=== PATIENT | male | born 1975 | race Caucasian/White ===

== ENCOUNTER 2016-11-30 08:59 | Emergency (ER) | payer OTHER ==
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
--- NOTE | 2016-11-30 09:58 | XR ---
2 view chest x-ray HISTORY: Left rib pain Frontal view of the chest and 4 views of the left ribs No comparisons There is no pneumothorax or pleural effusion. No evident lung lesion. No displaced rib fracture is se en. IMPRESSION: No acute cardiopulmonary disease. Bone scan could be performed for increased sensitivity as indicated. Degenerative disc disease noted in the spine.
[2016-11-30] MEDS ORDERED: HYDROcodone/APAP 5-325MG 1 EACH TAB PO STA (10:10)
[2016-11-30 10:21] VITALS: BP 140/70; PULSE 78; RESP 16; TEMP 97.8
== END 2016-11-30 10:20 | disposition home or self-care (01) ==
LOC: EC 08:59
DX: S20.212A Contusion of left front wall of thorax, initial encounter (principal); F17.200 Nicotine dependence, unspecified, uncomplicated; Y04.0XXA Assault by unarmed brawl or fight, initial encounter
CPT/HCPCS: 99283

== ENCOUNTER 2017-11-01 12:11 | Emergency (ER) | payer OTHER ==
[2017-11-01] MEDS ORDERED: SODIUM CHLORIDE 0.9% 500 ML IV STA (12:31)
--- NOTE | 2017-11-01 12:31 | ED ---
General Adult HPI - General Stated complaint: FALL FROM ROOF, RIB PAIN LEFT SIDE, LOWER BACK - History of Present Illness Initial comments: Dictation was produced using [employer] dictation software. please excuse any grammatical, word or spelling errors. Chief Complaint: 41-year-old male with a seizure. Medical history presents with left-sided flank pain and back pain after fall from roof. 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 45 minutes prior to arrival patient slipped off the roof falling and landing on his left side. Patient immediately got up he was ambulatory on scene. Patient states he has severe lower back pain and flank pain. Patient was brought here by private vehicle. Patient denies any neuro deficits to the lower extremities. Patient otherwise feels well. Report having several beers this morning. The ROS documented in this emergency department record has been reviewed and confirmed by me. Those systems with pertinent positive or negative responses have been documented in the HPI. All other systems are other negative and/or noncontributory. - Related Data Home Medications Medication Instructions Recorded Confirmed No Known Home Medications 11/01/17 11/01/17 Allergies Allergy/AdvReac Type Severity Reaction Status Date / Time No Known Allergies Allergy Verified 11/01/17 13:57 Review of Systems ROS Statement: Those systems with pertinent positive or pertinent negative responses have been documented in the HPI. ROS Other: All systems not noted in ROS Statement are negative. Past Medical History Past Medical History: No Reported History History of Any Multi-Drug Resistant Organisms: None Reported Past Surgical History: No Surgical Hx Reported Past Psychological History: Anxiety, Depression Smoking Status: Current every day smoker Past Alcohol Use History: None Reported Past Drug Use History: None Reported General Exam - General Exam Comments Initial Comments: PHYSICAL EXAM: General Impression: Alert and oriented x3, not in acute distress HEENT: Normocephalic atraumatic, extra-ocular movements intact, pupils equal and reactive to light bilaterally, mucous membranes moist. Cardiovascular: Heart regular rate and rhythm, S1&S2 audible, no murmurs, rubs or gallops Chest: Lungs clear to auscultation bilaterally, no rhonchi, no wheeze, no rales Abdomen: Tenderness to palpation of the left flank. Anterior abdomen is benign without any tenderness to palpation Musculoskeletal: Pulses present and equal in all extremities, no peripheral edema Motor: Power 5/5 bilaterally, no focal deficits noted Neurological: CN II-XII grossly intact, no focal motor or sensory deficits noted Skin: Intact with no visualized rashes Psych: Normal affect and mood Course Vital Signs 11/01/17 12:15 Temperature 98.2 F Pulse Rate 60 Respiratory 18 Rate Blood Pressure 127/79 O2 Sat by Pulse 100 Oximetry Medical Decision Making - Medical Decision Making ED course: An-year-old male presents with back pain and flank pain after fall from roof. Patient allegedly fell from a roof approximately one and a half stories.Laboratory evaluation obtained. CBC unremarkable. Coag panel unremarkable. Metabolic panel was obtained. There is a lactic acidosis of 2.3. Glucose is 148. Rest of labs are unremarkable. Serum alcohol is 23. Dutton scan was obtained showing no acute processes. Patient c-collar was cleared. He is tolerating by mouth. Pain is controlled. Patient does not have any difficulty breathing. Ambulatory at baseline. Discussed with patient that his symptoms may be worse tomorrow. Repeat lactic acid level was obtained and found to be 1.2. Patient told to expect more pain tomorrow. He is told to take [id number] Motrin. Patient understandable and agreeable to disposition. Patient instructed to return precautions to come back to the emergency department or seek medical attention should he expense any worsening pain or symptoms. - Lab Data Result diagrams: 11/01/17 12:30 11/01/17 12:30 Lab Results 11/01/17 11/01/17 11/01/17 Range/Units 12:30 12:30 12:30 WBC 4.8 (3.8-10.6) k/uL RBC 4.36 (4.30-5.90) m/uL Hgb 13.6 (13.0-17.5) gm/dL Hct 40.0 (39.0-53.0) % MCV 91.9 (80.0-100.0) fL MCH 31.2 (25.0-35.0) pg MCHC 34.0 (31.0-37.0) g/dL RDW 13.4 (11.5-15.5) % Plt Count 208 (150-450) k/uL Neutrophils % 68 % Lymphocytes % 24 % Monocytes % 4 % Eosinophils % 1 % Basophils % 1 % Neutrophils # 3.3 (1.3-7.7) k/uL Lymphocytes # 1.2 (1.0-4.8) k/uL Monocytes # 0.2 (0-1.0) k/uL Eosinophils # 0.1 (0-0.7) k/uL Basophils # 0.0 (0-0.2) k/uL PT (9.0-12.0) sec INR (<1.2) APTT (22.0-30.0) sec Sodium 141 (137-145) mmol/L Potassium 3.7 (3.5-5.1) mmol/L Chloride 105 (98-107) mmol/L Carbon Dioxide 24 (22-30) mmol/L Anion Gap 12 mmol/L BUN 10 (9-20) mg/dL Creatinine 0.63 L (0.66-1.25) mg/dL Est GFR (CKD-EPI)AfAm >90 (>60 ml/min/1.73 sqM) Est GFR (CKD-EPI)NonAf >90 (>60 ml/min/1.73 sqM) Glucose 148 H (74-99) mg/dL Plasma Lactic Acid Suman (0.7-2.0) mmol/L Calcium 9.4 (8.4-10.2) mg/dL Total Bilirubin 0.6 (0.2-1.3) mg/dL AST 62 H (17-59) U/L ALT 79 H (21-72) U/L Alkaline Phosphatase 109 (38-126) U/L Total Creatine Kinase 389 H (55-170) U/L CK-MB (CK-2) 4.2 H (0.0-2.4) ng/mL CK-MB (CK-2) Rel Index 1.1 Troponin I <0.012 (0.000-0.034) ng/mL Total Protein 7.6 (6.3-8.2) g/dL Albumin 4.1 (3.5-5.0) g/dL Amylase 37 (30-110) U/L Lipase 94 (23-300) U/L Serum Alcohol 23 mg/dL Blood Type Blood Type Confirm Blood Type Recheck Antibody Screen Spec Expiration Date 11/01/17 11/01/17 11/01/17 Range/Units 12:30 12:30 12:30 WBC (3.8-10.6) k/uL RBC (4.30-5.90) m/uL Hgb (13.0-17.5) gm/dL Hct (39.0-53.0) % MCV (80.0-100.0) fL MCH (25.0-35.0) pg MCHC (31.0-37.0) g/dL RDW (11.5-15.5) % Plt Count (150-450) k/uL Neutrophils % % Lymphocytes % % Monocytes % % Eosinophils % % Basophils % % Neutrophils # (1.3-7.7) k/uL Lymphocytes # (1.0-4.8) k/uL Monocytes # (0-1.0) k/uL Eosinophils # (0-0.7) k/uL Basophils # (0-0.2) k/uL PT 10.8 (9.0-12.0) sec INR 1.1 (<1.2) APTT 23.6 (22.0-30.0) sec Sodium (137-145) mmol/L Potassium (3.5-5.1) mmol/L Chloride (98-107) mmol/L Carbon Dioxide (22-30) mmol/L Anion Gap mmol/L BUN (9-20) mg/dL Creatinine (0.66-1.25) mg/dL Est GFR (CKD-EPI)AfAm (>60 ml/min/1.73 sqM) Est GFR (CKD-EPI)NonAf (>60 ml/min/1.73 sqM) Glucose (74-99) mg/dL Plasma Lactic Acid Suman 2.3 H* (0.7-2.0) mmol/L Calcium (8.4-10.2) mg/dL Total Bilirubin (0.2-1.3) mg/dL AST (17-59) U/L ALT (21-72) U/L Alkaline Phosphatase (38-126) U/L Total Creatine Kinase (55-170) U/L CK-MB (CK-2) (0.0-2.4) ng/mL CK-MB (CK-2) Rel Index Troponin I (0.000-0.034) ng/mL Total Protein (6.3-8.2) g/dL Albumin (3.5-5.0) g/dL Amylase (30-110) U/L Lipase (23-300) U/L Serum Alcohol mg/dL Blood Type B Positive Blood Type Confirm Blood Type Recheck CABO Indicated Antibody Screen NEGATIVE Spec Expiration Date 11/04/2017 - 232911/01/17 11/01/17 Range/Units 13:06 14:30 WBC (3.8-10.6) k/uL RBC (4.30-5.90) m/uL Hgb (13.0-17.5) gm/dL Hct (39.0-53.0) % MCV (80.0-100.0) fL MCH (25.0-35.0) pg MCHC (31.0-37.0) g/dL RDW (11.5-15.5) % Plt Count (150-450) k/uL Neutrophils % % Lymphocytes % % Monocytes % % Eosinophils % % Basophils % % Neutrophils # (1.3-7.7) k/uL Lymphocytes # (1.0-4.8) k/uL Monocytes # (0-1.0) k/uL Eosinophils # (0-0.7) k/uL Basophils # (0-0.2) k/uL PT (9.0-12.0) sec INR (<1.2) APTT (22.0-30.0) sec Sodium (137-145) mmol/L Potassium (3.5-5.1) mmol/L Chloride (98-107) mmol/L Carbon Dioxide (22-30) mmol/L Anion Gap mmol/L BUN (9-20) mg/dL Creatinine (0.66-1.25) mg/dL Est GFR (CKD-EPI)AfAm (>60 ml/min/1.73 sqM) Est GFR (CKD-EPI)NonAf (>60 ml/min/1.73 sqM) Glucose (74-99) mg/dL Plasma Lactic Acid Suman 1.2 (0.7-2.0) mmol/L Calcium (8.4-10.2) mg/dL Total Bilirubin (0.2-1.3) mg/dL AST (17-59) U/L ALT (21-72) U/L Alkaline Phosphatase (38-126) U/L Total Creatine Kinase (55-170) U/L CK-MB (CK-2) (0.0-2.4) ng/mL CK-MB (CK-2) Rel Index Troponin I (0.000-0.034) ng/mL Total Protein (6.3-8.2) g/dL Albumin (3.5-5.0) g/dL Amylase (30-110) U/L Lipase (23-300) U/L Serum Alcohol mg/dL Blood Type Blood Type Confirm B Positive Blood Type Recheck Antibody Screen Spec Expiration Date Disposition Clinical Impression: Contusion, chest wall Disposition: HOME SELF-CARE Condition: Good Is patient prescribed a controlled substance at d/c from ED?: No Referrals: Mana Queen MD [REFERRING] - 1-2 days Time of Disposition: 15:14
[2017-11-01 12:32] VITALS: BP 127/79; PULSE 60; RESP 18; TEMP 98.2
[2017-11-01 12:47] LABS: Basophils % (A) 1 %; Eosinophils # (A) 0.1 k/uL (0-0.7); Eosinophils % (A) 1 %; HGB 13.6 gm/dL (13.0-17.5); Lymphocytes # (A) 1.2 k/uL (1.0-4.8); Lymphocytes % (A) 24 %; MCH 31.2 pg (25.0-35.0); MCV 91.9 fL (80.0-100.0); Mean Platelet Volume 6.9; Monocytes # (A) 0.2 k/uL (0-1.0); Monocytes % (A) 4 %; Neutrophils # (A) 3.3 k/uL (1.3-7.7); Neutrophils % (A) 68 %; Platelet Count 208 k/uL (150-450); RBC 4.36 m/uL (4.30-5.90); RDW 13.4 % (11.5-15.5); WBC 4.8 k/uL (3.8-10.6)
[2017-11-01 12:55] LABS: INR 1.1 (<1.2); Partial Thromboplastin Time 23.6 sec (22.0-30.0); Prothrombin Time 10.8 sec (9.0-12.0)
[2017-11-01 12:57] LABS: ALT 79 U/L (21-72); AST 62 U/L (17-59); Albumin 4.1 g/dL (3.5-5.0); Alcohol 23 mg/dL; Alkaline Phosphatase 109 U/L (38-126); Amylase 37 U/L (30-110); Anion Gap 12 mmol/L; Blood Urea Nitrogen 10 mg/dL (9-20); Calcium 9.4 mg/dL (8.4-10.2); Carbon Dioxide 24 mmol/L (22-30); Chloride 105 mmol/L (98-107); Glucose 148 mg/dL (74-99); Lipase 94 U/L (23-300); Potassium 3.7 mmol/L (3.5-5.1); Sodium 141 mmol/L (137-145); Total Bilirubin 0.6 mg/dL (0.2-1.3); Total Protein 7.6 g/dL (6.3-8.2)
--- NOTE | 2017-11-01 12:57 | XR ---
EXAMINATION TYPE: XR chest 1V portable DATE OF EXAM: 11/01/2017 COMPARISON: Prior chest x-ray 11/30/2016 HISTORY: Trauma and pain TECHNIQUE: Single frontal view of the chest is obtained. FINDINGS: There is no focal air space opacity, pleural effusion, or pneumothorax seen. The cardiac silhouette size is within normal limits. The osseous structures are intact. IMPRESSION: No acute process.
--- NOTE | 2017-11-01 13:00 | XR ---
AP pelvis HISTORY: Trauma and pain Single frontal view of the pelvis There is no fracture or dislocation. Bone mineralization, joint spaces and alignment are normal. IMPRESSION: No acute abnormality
[2017-11-01 13:09] LABS: Creatine Kinase 389 U/L (55-170)
--- NOTE | 2017-11-01 13:20 | CT ---
EXAMINATION TYPE: CT brain gissell niño DATE OF EXAM: 11/01/2017 COMPARISON: None HISTORY: Fall from roof CT DLP: 1492.[address] Brain: Unenhanced CT of the brain was performed. The ventricles, basal cisterns and sulci overlying the cerebral convexities demonstrate a normal appe arance. There is no evidence for intracranial hemorrhage or sulcal effacement. No mass effects are seen. If symptoms persist consider MRI. Osseous calvarium is intact. IMPRESSION: No acute intracranial process CT Cervical Spine: Unenhanced CT of the cervical spine was performed with bone and soft tissue window settings submitted . Coronal and sagittal reconstruction is obtained. There is normal alignment and prevertebral soft tissues. I do not see evidence for fracture or sublu xation. Mild scattered degenerative disc space narrowing and spondylosis. The lung apices are clear. IMPRESSION: No evidence for acute fracture or subluxation of the cervical spine.
[2017-11-01 13:22] LABS: Creatine Kinase MB 4.2 ng/mL (0.0-2.4); Troponin I <0.012 ng/mL (0.000-0.034)
--- NOTE | 2017-11-01 13:29 | CT ---
EXAMINATION TYPE: CT ChestAbdPelvis w con DATE OF EXAM: 11/01/2017 COMPARISON: None HISTORY: Fall from roof CT DLP: 676.2 mGycm CONTRAST: Contrast enhanced Trauma CT of the Chest, Abdomen and Pelvis is performed with IV Contrast, patient i njected with 100mL mL of Isovue 300. Chest: LUNGS: There is no evidence for pneumothorax. The lungs are clear and free of focal contusion or ate lectasis. No pleural effusion MEDIASTINUM: Thoracic aorta is of normal caliber without CT evidence to suggest traumatic induced ao rtic injury. No mediastinal fluid or blood. No pericardial fluid or cardia abnormality. HILAR STRUCTURES: No evidence for mass. No hilar adenopathy is appreciated. OTHER: No significant abnormality. OSSEOUS: No displaced osseous fractures identified. CT ABDOMEN AND PELVIS FINDINGS: LIVER/GB: No focal laceration, contusion or subcapsular hemorrhage. No calcified gallstones. No s pace occupying hepatic lesion. Biliary tree is of normal caliber. PANCREAS: No evidence for transection. No inflammation. No distinct mass. SPLEEN: No focal laceration, contusion or subcapsular hemorrhage. ADRENALS: No hemorrhage. No nodule. No thickening. KIDNEYS/BLADDER: No focal laceration, contusion or subcapsular hemorrhage. No hydronephrosis. No n ephrolithiasis. No disctinct renal mass. BOWEL: Bowel is intact. No evidence for pneumoperitoneum. GENITAL ORGANS: No gross abnormality. LYMPH NODES: No greater than 1cm abdominal or pelvic lymph nodes areappreciated. AORTA: No traumatic aortic injury visualized. OSSEOUS STRUCTURES: No displaced fracture seen. OTHER: No evidence for hemoperitoneum. IMPRESSION: 1. No evidence for traumatic injury to the chest. 2. No evidence for traumatic injury to the abdomen or pelvis.
[2017-11-01] MEDS ORDERED: IBUPROFEN 800 MG TAB PO STA (14:37)
== END 2017-11-01 16:20 | disposition home or self-care (01) ==
LOC: EC 12:11
DX: S20.212A Contusion of left front wall of thorax, initial encounter (principal); E87.2 Acidosis; F17.200 Nicotine dependence, unspecified, uncomplicated; W13.2XXA Fall from, out of or through roof, initial encounter
CPT/HCPCS: 36415; 86900; 86901; 80053; 82150; 82550; 82553; 83605; 83690; 84484; 85025; 85610; 85730; 86850; 80320; 72170; 71045; 72125; 70450; 71260; 74177; 99284; 96360; Q9967

== ENCOUNTER 2018-06-21 04:46 | Emergency (ER) | payer OTHER ==
--- NOTE | 2018-06-21 05:11 | ED ---
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 Patient reports that shortly after the amputation he tripped and tore the sutures he then developed significant infection in the foot and had have all the sutures opened and the wound was left open for healing by secondary intention. Patient reports he was in a skilled nursing for 3 weeks duration and which time he received IV antibiotics and wound care. Patient reports he left the skilled nursing little over a week ago and due to transportation issues and family issues has been unable to follow-up with his surgeon. Patient reports that today he noticed that there seemed to be more drainage from foot and he was worried that he may not have been doing proper wound care and that he may be developing worsening infection. This prompted him to get a ride to the hospital for further evaluation. She denies any associated fevers, chills nausea vomiting. Patient has not been on antibiotics since his IV antibiotics were discontinued at the longterm facility. - Related Data Home Medications Medication Instructions Recorded Confirmed ALPRAZolam [Xanax] 0.5 mg PO PC-TID PRN 06/21/18 06/21/18 Ibuprofen 800 mg PO PRN 06/21/18 oxyCODONE-APAP 5-325MG [Percocet 1 tab PO Q6HR PRN 06/21/18 06/21/18 5-325 mg] traZODone HCL [TraZODone HCl] 50 mg PO ONCE PRN 06/21/18 06/21/18 Allergies Allergy/AdvReac Type Severity Reaction Status Date / Time No Known Allergies Allergy Verified 06/21/18 04:57 Review of Systems ROS Statement: Those systems with pertinent positive or pertinent negative responses have been documented in the HPI. ROS Other: All systems not noted in ROS Statement are negative. Past Medical History Past Medical History: No Reported History History of Any Multi-Drug Resistant Organisms: None Reported Past Surgical History: No Surgical Hx Reported Additional Past Surgical History / Comment(s): RIGHT FOOT- 5 TOES AMPUTATION FROM FROSTBITE Past Psychological History: Anxiety, Depression Smoking Status: Current every day smoker Past Alcohol Use History: None Reported Past Drug Use History: None Reported General Exam - General Exam Comments Initial Comments: Physical Exam GENERAL: Patient is well-developed and well-nourished. Patient is nontoxic and well-hydrated and is in no distress. HENT: Normocephalic, Atraumatic. EYES: PERRL, EOMI PULMONARY: Unlabored respirations. No audible rales rhonchi or wheezing was noted. CARDIOVASCULAR: There is a regular rate and rhythm without any murmurs gallops or rubs. ABDOMEN: Soft and nontender with normal bowel sounds. SKIN: Surgical incision of right foot, healing granulation tissue with peeling tissue noted, no purulence no malodorous discharge Visible metatarsals : Deferred NEUROLOGIC: Patient is alert and oriented x3. Moving all extremities spontaneously MUSCULOSKELETAL: Normal extremities with adequate strength and full range of motion. No lower extremity swelling or edema. No calf tenderness. PSYCHIATRIC: Normal psychiatric evaluation. Limitations: no limitations Limitations: physical limitation Course Vital Signs 06/21/18 06/21/18 04:50 06:24 Temperature 97.8 F 97.9 F Pulse Rate 99 93 Respiratory 18 16 Rate Blood Pressure 135/85 138/73 O2 Sat by Pulse 96 96 Oximetry Medical Decision Making - Medical Decision Making The patient was seen and evaluated history is obtained from the patient and signed patient uncertain when his surgery was placed that is about 4-5 weeks ago when to skilled nursing for 3 weeks for antibiotics postoperatively, has been unable to follow-up with his surgeon. Now having worsening discharge and has an open surgical wound with granulation tissue no obvious signs of infection though there is exposed bone A sepsis workup was initiated including blood cultures however given that there is no signs of acute infection no antibodies were ordered Given the patient's vascular surgeon Dr. Palumbo is at [facility] I do feel the patient warrants transfer to their facility for reevaluation by his surgeon who he has failed to follow up with. Patient is agreeable to this plan. Pat ient care was discussed with Dr. Martinez at the [facility] who accepts the transfer. Patients CMP resulted with Cr of 2.89 - patient's Cr in Fall 2017 was 0.6 - however the patient's BUN is not significantly elevated so I don't think this is solely related to dehydration. Perhaps due to recent IV antibiotic use. Additional IV fluids were ordered. - Lab Data Result diagrams: 06/21/18 05:24 06/21/18 05:24 Lab Results 06/21/18 06/21/18 06/21/18 Range/Units 05:24 05:24 05:24 WBC 10.2 (3.8-10.6) k/uL RBC 3.88 L (4.30-5.90) m/uL Hgb 11.7 L (13.0-17.5) gm/dL Hct 34.8 L (39.0-53.0) % MCV 89.7 (80.0-100.0) fL MCH 30.2 (25.0-35.0) pg MCHC 33.6 (31.0-37.0) g/dL RDW 13.2 (11.5-15.5) % Plt Count 237 (150-450) k/uL Neutrophils % 80 % Lymphocytes % 10 % Monocytes % 8 % Eosinophils % 1 % Basophils % 0 % Neutrophils # 8.1 H (1.3-7.7) k/uL Lymphocytes # 1.0 (1.0-4.8) k/uL Monocytes # 0.8 (0-1.0) k/uL Eosinophils # 0.1 (0-0.7) k/uL Basophils # 0.0 (0-0.2) k/uL PT (9.0-12.0) sec INR (<1.2) APTT (22.0-30.0) sec Sodium 138 (137-145) mmol/L Potassium 4.5 (3.5-5.1) mmol/L Chloride 100 (98-107) mmol/L Carbon Dioxide 20 L (22-30) mmol/L Anion Gap 18 mmol/L BUN 29 H (9-20) mg/dL Creatinine 2.89 H (0.66-1.25) mg/dL Est GFR (CKD-EPI)AfAm 30 (>60 ml/min/1.73 sqM) Est GFR (CKD-EPI)NonAf 26 (>60 ml/min/1.73 sqM) Glucose 97 (74-99) mg/dL Plasma Lactic Acid Suman 1.5 (0.7-2.0) mmol/L Calcium 10.0 (8.4-10.2) mg/dL Total Bilirubin 0.6 (0.2-1.3) mg/dL AST 60 H (17-59) U/L ALT 36 (21-72) U/L Alkaline Phosphatase 89 (38-126) U/L C-Reactive Protein 49.9 H (<10.0) mg/L Total Protein 8.2 (6.3-8.2) g/dL Albumin 4.6 (3.5-5.0) g/dL 06/21/18 Range/Units 05:24 WBC (3.8-10.6) k/uL RBC (4.30-5.90) m/uL Hgb (13.0-17.5) gm/dL Hct (39.0-53.0) % MCV (80.0-100.0) fL MCH (25.0-35.0) pg MCHC (31.0-37.0) g/dL RDW (11.5-15.5) % Plt Count (150-450) k/uL Neutrophils % % Lymphocytes % % Monocytes % % Eosinophils % % Basophils % % Neutrophils # (1.3-7.7) k/uL Lymphocytes # (1.0-4.8) k/uL Monocytes # (0-1.0) k/uL Eosinophils # (0-0.7) k/uL Basophils # (0-0.2) k/uL PT 11.6 (9.0-12.0) sec INR 1.1 (<1.2) APTT 23.9 (22.0-30.0) sec Sodium (137-145) mmol/L Potassium (3.5-5.1) mmol/L Chloride (98-107) mmol/L Carbon Dioxide (22-30) mmol/L Anion Gap mmol/L BUN (9-20) mg/dL Creatinine (0.66-1.25) mg/dL Est GFR (CKD-EPI)AfAm (>60 ml/min/1.73 sqM) Est GFR (CKD-EPI)NonAf (>60 ml/min/1.73 sqM) Glucose (74-99) mg/dL Plasma Lactic Acid Suman (0.7-2.0) mmol/L Calcium (8.4-10.2) mg/dL Total Bilirubin (0.2-1.3) mg/dL AST (17-59) U/L ALT (21-72) U/L Alkaline Phosphatase (38-126) U/L C-Reactive Protein (<10.0) mg/L Total Protein (6.3-8.2) g/dL Albumin (3.5-5.0) g/dL Disposition Clinical Impression: Postoperative dehiscence of skin wound, FRANCISCA (acute kidney injury), Elevated C- reactive protein (CRP) Disposition: OTHER INSTITUTION NOT DEFINED Condition: Stable Is patient prescribed a controlled substance at d/c from ED?: No Referrals: Roel Akhtar DO [Primary Care Provider] - 1-2 days - Out of Hospital Transfer - Req. Specs Out of Hospital Transfer - Requested Specifics: Other Emergency Center ([facility])
[2018-06-21] MEDS: SODIUM CHLORIDE 0.9% 500 ML 500 ML IV SCH ×2 (05:30→05:34)
[2018-06-21 05:43] LABS: Basophils % (A) 0 %; Eosinophils # (A) 0.1 k/uL (0-0.7); Eosinophils % (A) 1 %; HCT 34.8 % (39.0-53.0); HGB 11.7 gm/dL (13.0-17.5); Lymphocytes % (A) 10 %; MCH 30.2 pg (25.0-35.0); MCHC 33.6 g/dL (31.0-37.0); MCV 89.7 fL (80.0-100.0); Mean Platelet Volume 7.3; Monocytes # (A) 0.8 k/uL (0-1.0); Monocytes % (A) 8 %; Neutrophils # (A) 8.1 k/uL (1.3-7.7); Neutrophils % (A) 80 %; Platelet Count 237 k/uL (150-450); RBC 3.88 m/uL (4.30-5.90); RDW 13.2 % (11.5-15.5); WBC 10.2 k/uL (3.8-10.6)
[2018-06-21 06:25] VITALS: BP 138/73; PULSE 93; RESP 16; TEMP 97.9
[2018-06-21 06:26] LABS: Albumin 4.6 g/dL (3.5-5.0); C Reactive Protein 49.9 mg/L (<10.0); Potassium 4.5 mmol/L (3.5-5.1); Total Bilirubin 0.6 mg/dL (0.2-1.3); Total Protein 8.2 g/dL (6.3-8.2)
[2018-06-21 06:31] LABS: INR 1.1 (<1.2); Partial Thromboplastin Time 23.9 sec (22.0-30.0); Prothrombin Time 11.6 sec (9.0-12.0)
[2018-06-21] MEDS ORDERED: SODIUM CHLORIDE 0.9% 1,000 ML IV ONE (06:31)
--- NOTE | 2018-06-21 06:36 | XR ---
EXAM: XR Right Foot Complete, 3 or More Views CLINICAL HISTORY: ITS.REASON XR Reason: Pain, infection eval for osteo TECHNIQUE: Frontal, lateral and oblique views of the right foot. COMPARISON: No relevant prior studies available. FINDINGS: Bones/joints: Status post forefoot amputation at the level of the metatarsals. No definite acute fracture or osseous destruction. Soft tissues: Lucencies at the dorsal aspect of the foot, soft tissue gas is not excluded. IMPRESSION: 1. Postsurgical changes without evidence of acute fracture or osseous destruction. CT/MRI may be considered if there is persistent concern for osteomyelitis. 2. Lucencies at the dorsal aspect of the foot, soft tissue gas is not excluded.
[2018-06-21] MEDS ORDERED: SODIUM CHLORIDE 0.9% 1,000 ML IV SCH (06:45)
== END 2018-06-21 07:00 | disposition other institution (70) ==
LOC: EC 04:46
DX: T81.31XA Disruption of external operation (surgical) wound, not elsewhere classified, initial encounter (principal); N17.9 Acute kidney failure, unspecified; R79.82 Elevated C-reactive protein (CRP); F17.200 Nicotine dependence, unspecified, uncomplicated; Z89.411 Acquired absence of right great toe; Z89.421 Acquired absence of other right toe(s); W01.0XXA Fall on same level from slipping, tripping and stumbling without subsequent striking against object, initial encounter
CPT/HCPCS: 36415; 80053; 83605; 85025; 85610; 85730; 86140; 87040; 96360; 99285

== ENCOUNTER 2018-08-03 13:02 | Emergency (ER) | payer OTHER ==
[2018-08-03 13:14] VITALS: RESP 18
--- NOTE | 2018-08-03 13:48 | ED ---
General Adult HPI - General Chief complaint: Recheck/Abnormal Lab/Rx Stated complaint: Foot infection Time Seen by Provider: 08/03/18 13:24 Source: patient, RN notes reviewed Mode of arrival: ambulatory Limitations: no limitations - History of Present Illness Initial comments: 42-year-old male presents emergency Department chief complaint of possible inf ection to right foot. Patient had prior amputation of all toes on the right foot in May. Patient states that he had an associated infection in which she was opened up again and had wound VAC placed approximately 5 weeks ago. Patient states that he has increased drainage. Patient states he missed his follow-up appointment. Patient also states that he is out of his pain medication. Patient reports no fevers or chills. Patient states pain is unbearable. Patient does not have another scheduled appointment for follow-up. Patient's surgeon is [place] [facility]. - Related Data Home Medications Medication Instructions Recorded Confirmed ALPRAZolam [Xanax] 0.5 mg PO PC-TID PRN 06/21/18 06/21/18 Ibuprofen 800 mg PO PRN 06/21/18 oxyCODONE-APAP 5-325MG [Percocet 1 tab PO Q6HR PRN 06/21/18 06/21/18 5-325 mg] traZODone HCL [TraZODone HCl] 50 mg PO ONCE PRN 06/21/18 06/21/18 Previous Rx's Medication Instructions Recorded Cephalexin [Keflex] 500 mg PO Q6HR #40 cap 08/03/18 Sulfamethox-Tmp 800-160Mg [Bactrim 1 each PO Q12HR #20 tab 08/03/18 Ds] Allergies Allergy/AdvReac Type Severity Reaction Status Date / Time No Known Allergies Allergy Verified 08/03/18 13:14 Review of Systems ROS Statement: Those systems with pertinent positive or pertinent negative responses have been documented in the HPI. ROS Other: All systems not noted in ROS Statement are negative. Past Medical History Past Medical History: No Reported History History of Any Multi-Drug Resistant Organisms: None Reported Past Surgical History: No Surgical Hx Reported Additional Past Surgical History / Comment(s): RIGHT FOOT- 5 TOES AMPUTATION FROM FROSTBITE Past Psychological History: Anxiety, Depression Smoking Status: Current every day smoker Past Alcohol Use History: None Reported Past Drug Use History: None Reported General Exam Limitations: no limitations General appearance: alert, in no apparent distress Head exam: Present: atraumatic, normocephalic, normal inspection Eye exam: Present: normal appearance, PERRL, EOMI. Absent: scleral icterus, conjunctival injection, periorbital swelling Respiratory exam: Present: normal lung sounds bilaterally. Absent: respiratory distress, wheezes, rales, rhonchi, stridor Cardiovascular Exam: Present: normal rhythm, tachycardia, normal heart sounds. Absent: systolic murmur, diastolic murmur, rubs, gallop, clicks Extremities exam: Present: other (Right foot there is amputation of all digits, there is a wound that has mild dehiscence, small amount of purulent drainage, there is no erythema, pulses are equal bilaterally) Skin exam: Present: warm, dry, normal color Course Vital Signs 08/03/18 13:11 Temperature 98.3 F Pulse Rate 107 H Respiratory 18 Rate Blood Pressure 134/74 O2 Sat by Pulse 97 Oximetry Medical Decision Making - Medical Decision Making 42-year-old male present emergency department for wound dehiscence of his right foot. This is a chronic ongoing wound. Patient will be placed on prophylactic antibiotics at this time there is no evidence of osteomyelitis patient's lab work essentially unremarkable. Patient advised to follow-up with PCP, surgeon. - Lab Data Result diagrams: 08/03/18 13:57 08/03/18 13:57 Lab Results 08/03/18 08/03/18 08/03/18 Range/Units 13:57 13:57 13:57 WBC 3.1 L (3.8-10.6) k/uL RBC 4.67 (4.30-5.90) m/uL Hgb 12.8 L (13.0-17.5) gm/dL Hct 39.2 (39.0-53.0) % MCV 83.8 D (80.0-100.0) fL MCH 27.4 (25.0-35.0) pg MCHC 32.7 (31.0-37.0) g/dL RDW 13.0 (11.5-15.5) % Plt Count 296 (150-450) k/uL Neutrophils % 44 % Lymphocytes % 43 % Monocytes % 7 % Eosinophils % 2 % Basophils % 1 % Neutrophils # 1.4 (1.3-7.7) k/uL Lymphocytes # 1.3 (1.0-4.8) k/uL Monocytes # 0.2 (0-1.0) k/uL Eosinophils # 0.1 (0-0.7) k/uL Basophils # 0.0 (0-0.2) k/uL Sodium 138 (137-145) mmol/L Potassium 3.6 (3.5-5.1) mmol/L Chloride 105 (98-107) mmol/L Carbon Dioxide 19 L (22-30) mmol/L Anion Gap 14 mmol/L BUN 21 H (9-20) mg/dL Creatinine 1.38 H (0.66-1.25) mg/dL Est GFR (CKD-EPI)AfAm 73 (>60 ml/min/1.73 sqM) Est GFR (CKD-EPI)NonAf 63 (>60 ml/min/1.73 sqM) Glucose 164 H (74-99) mg/dL Plasma Lactic Acid Suman 1.0 (0.7-2.0) mmol/L Calcium 9.7 (8.4-10.2) mg/dL Total Bilirubin 0.5 (0.2-1.3) mg/dL AST 32 (17-59) U/L ALT 23 (21-72) U/L Alkaline Phosphatase 96 (38-126) U/L Total Protein 8.2 (6.3-8.2) g/dL Albumin 4.5 (3.5-5.0) g/dL Disposition Clinical Impression: Wound dehiscence Disposition: HOME SELF-CARE Condition: Stable Instructions (If sedation given, give patient instructions): Wound Dehiscence (ED) Additional Instructions: Please return to the Emergency Department if symptoms worsen or any other concerns. Prescriptions: Sulfamethox-Tmp 800-160Mg [Bactrim Ds] 1 each PO Q12HR #20 tab Cephalexin [Keflex] 500 mg PO Q6HR #40 cap Is patient prescribed a controlled substance at d/c from ED?: No Referrals: oRel Akhtar DO [Primary Care Provider] - 1-2 days Time of Disposition: 14:54
[2018-08-03 14:10] LABS: Basophils % (A) 1 %; Eosinophils # (A) 0.1 k/uL (0-0.7); Eosinophils % (A) 2 %; HCT 39.2 % (39.0-53.0); HGB 12.8 gm/dL (13.0-17.5); Lymphocytes # (A) 1.3 k/uL (1.0-4.8); Lymphocytes % (A) 43 %; MCH 27.4 pg (25.0-35.0); MCHC 32.7 g/dL (31.0-37.0); Mean Platelet Volume 6.7; Monocytes # (A) 0.2 k/uL (0-1.0); Monocytes % (A) 7 %; Neutrophils # (A) 1.4 k/uL (1.3-7.7); Neutrophils % (A) 44 %; Platelet Count 296 k/uL (150-450); RBC 4.67 m/uL (4.30-5.90); WBC 3.1 k/uL (3.8-10.6)
[2018-08-03 14:16] LABS: MCV 83.8 fL (80.0-100.0)
[2018-08-03 14:25] LABS: Albumin 4.5 g/dL (3.5-5.0); Calcium 9.7 mg/dL (8.4-10.2); Potassium 3.6 mmol/L (3.5-5.1); Total Bilirubin 0.5 mg/dL (0.2-1.3); Total Protein 8.2 g/dL (6.3-8.2)
[2018-08-03] MEDS ORDERED: oxyCODONE-APAP 5-325MG 1 EACH TAB PO STA (14:31)
--- NOTE | 2018-08-03 14:35 | XR ---
EXAMINATION TYPE: XR foot complete RT DATE OF EXAM: 08/03/2018 COMPARISON: 06/21/2018 HISTORY: 42-year-old male pain, possible infection at amputation site TECHNIQUE: 3 views FINDINGS: Forefoot amputation is demonstrated. There is progressive callus/periostitis in the region of the ost eotomies along the first through fourth metatarsals. Slight bony irregularity along the third metatar vashti osteotomy margin without ophelia osteolysis. Soft tissue swelling. IMPRESSION: 1. Forefoot amputation with progression in callus formation along the osteotomies. The periostitis ma y be reactive to overlying soft tissue infection. 2. There is very minimal bony irregularity at the third metatarsal osteotomy without ophelia osteolysis at this time. Close follow-up recommended.
[2018-08-03 15:24] VITALS: BP 122/78; PULSE 98; TEMP 98.4
== END 2018-08-03 15:26 | disposition home or self-care (01) ==
LOC: EC 13:02
DX: T81.30XA Disruption of wound, unspecified, initial encounter (principal); F17.200 Nicotine dependence, unspecified, uncomplicated
CPT/HCPCS: 36415; 80053; 83605; 85025; 87040; 99283

== ENCOUNTER 2018-08-05 12:38 | Emergency (ER) | payer OTHER ==
--- NOTE | 2018-08-05 13:49 | ED ---
Wound/Laceration HPI - General Source: patient, RN notes reviewed Mode of arrival: ambulatory <Michael Hargrove - Last Filed: 08/05/18 14:15> <Higinio Cuevas - Last Filed: 08/05/18 16:10> - General Chief Complaint: Wound/Laceration Stated Complaint: Foot infection/swelling Time Seen by Provider: 08/05/18 13:03 - History of Present Illness Initial Comments: 42-year-old male presents emergency Department with initial triage complaint of foot infection. Patient was recently seen in emergency department and was given antibiotics and he has not followed up. Patient states he is not concerned about this foot he states that he is depressed, states that he cannot deal with the pain and not been able to ambulate and work as a used to. Patient is not suicidal though he just feels that life is not going the direction that he wants. Patient does not have any current pain meds he was on Percocet and states he has not had any recent prescriptions. Patient is requesting narcotic pain meds. Patient denies any other complaints denies fevers or chills no drainage from the foot. (Michael Hargrove) - Related Data Home Medications Medication Instructions Recorded Confirmed ALPRAZolam [Xanax] 0.5 mg PO PC-TID PRN 06/21/18 08/05/18 oxyCODONE-APAP 5-325MG [Percocet 1 tab PO Q6HR PRN 06/21/18 08/05/18 5-325 mg] traZODone HCL [TraZODone HCl] 50 mg PO ONCE PRN 06/21/18 08/05/18 Cefuroxime Axetil [Ceftin] 500 mg PO Q12HR 08/05/18 08/05/18 Gabapentin [Neurontin] 300 mg PO Q6HR 08/05/18 08/05/18 Previous Rx's Medication Instructions Recorded Sulfamethox-Tmp 800-160Mg [Bactrim 1 each PO Q12HR #20 tab 08/03/18 Ds] Allergies Allergy/AdvReac Type Severity Reaction Status Date / Time No Known Allergies Allergy Verified 08/05/18 14:27 Review of Systems ROS Other: All systems not noted in ROS Statement are negative. <Michael Hargrove - Last Filed: 08/05/18 14:15> ROS Other: All systems not noted in ROS Statement are negative. <MasonHiginio - Last Filed: 08/05/18 16:10> ROS Statement: Those systems with pertinent positive or pertinent negative responses have been documented in the HPI. Past Medical History Past Medical History: No Reported History History of Any Multi-Drug Resistant Organisms: None Reported Past Surgical History: No Surgical Hx Reported Additional Past Surgical History / Comment(s): RIGHT FOOT- 5 TOES AMPUTATION FROM FROSTBITE Past Psychological History: Anxiety, Depression Smoking Status: Current every day smoker Past Alcohol Use History: None Reported Past Drug Use History: None Reported <Michael Hargrove Hugh - Last Filed: 08/05/18 14:15> General Exam General appearance: alert, in no apparent distress Head exam: Present: atraumatic, normocephalic, normal inspection Eye exam: Present: normal appearance, PERRL, EOMI. Absent: scleral icterus, conjunctival injection, periorbital swelling ENT exam: Present: normal exam, mucous membranes moist Neck exam: Present: normal inspection, full ROM. Absent: tenderness, meningismus, lymphadenopathy Respiratory exam: Present: normal lung sounds bilaterally. Absent: respiratory distress, wheezes, rales, rhonchi, stridor Cardiovascular Exam: Present: regular rate, normal rhythm, normal heart sounds. Absent: systolic murmur, diastolic murmur, rubs, gallop, clicks GI/Abdominal exam: Present: soft, normal bowel sounds. Absent: distended, tenderness, guarding, rebound, rigid Extremities exam: Present: other (Right foot there is amputation of digits 1 through 5, there is a healing wound with no erythema no purulent drainage pulses are equal bilaterally) Neurological exam: Present: alert, oriented X3, CN II-XII intact, reflexes normal. Absent: motor sensory deficit Psychiatric exam: Present: depressed <Michael Hargrove Hugh - Last Filed: 08/05/18 14:15> Course <MasonHiginio - Last Filed: 08/05/18 16:10> Vital Signs 08/05/18 08/05/18 08/05/18 12:51 13:54 15:52 Temperature 98.5 F Pulse Rate 95 Respiratory 18 18 18 Rate Blood Pressure 131/81 O2 Sat by Pulse 100 Oximetry - Reevaluation(s) Reevaluation #1: 08/05/18 16:10 PA supervision: I personally do a [id number] evaluation the patient he does present with complaints of feeling very depressed and having suicidal ideation though no particular plan. He was evaluated by psychiatric service and his to be admitted for inpatient treatment. I do agree with the assessment and plan I did fill out a clinical certification. (Higinio Cuevas) Medical Decision Making <Michael Hargrove - Last Filed: 08/05/18 14:15> - Lab Data Result diagrams: 08/05/18 14:40 08/05/18 14:40 <Higinio Cuevas - Last Filed: 08/05/18 16:10> - Medical Decision Making 42-year-old male present emergency Department for evaluation for depression. Patient was evaluated by EPS case discussed with psychiatrist recommends patient to be admitted. (Michael Hargrove) - Lab Data Lab Results 08/05/18 08/05/18 08/05/18 Range/Units 14:20 14:40 14:40 WBC 3.7 L (3.8-10.6) k/uL RBC 4.90 (4.30-5.90) m/uL Hgb 13.0 (13.0-17.5) gm/dL Hct 40.1 (39.0-53.0) % MCV 81.7 (80.0-100.0) fL MCH 26.4 (25.0-35.0) pg MCHC 32.3 (31.0-37.0) g/dL RDW 14.4 (11.5-15.5) % Plt Count 232 (150-450) k/uL Neutrophils % 47 % Lymphocytes % 40 % Monocytes % 7 % Eosinophils % 2 % Basophils % 1 % Neutrophils # 1.8 (1.3-7.7) k/uL Lymphocytes # 1.5 (1.0-4.8) k/uL Monocytes # 0.3 (0-1.0) k/uL Eosinophils # 0.1 (0-0.7) k/uL Basophils # 0.0 (0-0.2) k/uL Poikilocytosis Slight Sodium 139 (137-145) mmol/L Potassium 3.6 (3.5-5.1) mmol/L Chloride 107 (98-107) mmol/L Carbon Dioxide 22 (22-30) mmol/L Anion Gap 10 mmol/L BUN 10 (9-20) mg/dL Creatinine 0.77 (0.66-1.25) mg/dL Est GFR (CKD-EPI)AfAm >90 (>60 ml/min/1.73 sqM) Est GFR (CKD-EPI)NonAf >90 (>60 ml/min/1.73 sqM) Glucose 104 H (74-99) mg/dL Calcium 9.8 (8.4-10.2) mg/dL Total Bilirubin 0.5 (0.2-1.3) mg/dL AST 25 (17-59) U/L ALT 22 (21-72) U/L Alkaline Phosphatase 89 (38-126) U/L Total Protein 8.3 H (6.3-8.2) g/dL Albumin 4.5 (3.5-5.0) g/dL Urine Color Yellow Urine Appearance Clear (Clear) Urine pH 6.5 (5.0-8.0) Ur Specific [place] 1.023 (1.001-1.035) Urine Protein 1+ H (Negative) Urine Glucose (UA) Negative (Negative) Urine Ketones 1+ H (Negative) Urine Blood Negative (Negative) Urine Nitrite Negative (Negative) Urine Bilirubin Negative (Negative) Urine Urobilinogen <2.0 (<2.0) mg/dL Ur Leukocyte Esterase Negative (Negative) Urine RBC 1 (0-5) /hpf Urine WBC 3 (0-5) /hpf Ur Squamous Epith Cells <1 (0-4) /hpf Urine Mucus Many H (None) /hpf Urine Opiates Screen Not Detected (NotDetected) Ur Oxycodone Screen Not Detected (NotDetected) Urine Methadone Screen Not Detected (NotDetected) Ur Propoxyphene Screen Not Detected (NotDetected) Ur Barbiturates Screen Not Detected (NotDetected) U Tricyclic Antidepress Not Detected (NotDetected) Ur Phencyclidine Scrn Not Detected (NotDetected) Ur Amphetamines Screen Not Detected (NotDetected) U Methamphetamines Scrn Detected H (NotDetected) U Benzodiazepines Scrn Detected H (NotDetected) Urine Cocaine Screen Not Detected (NotDetected) U Marijuana (THC) Screen Not Detected (NotDetected) Disposition <Michael Hargrove M - Last Filed: 08/05/18 14:15> <Higinio Cuevas - Last Filed: 08/05/18 16:10> Clinical Impression: Depression, Suicidal ideation Disposition: TRANSFER TO PSYCH HOSP/UNIT Condition: Stable Referrals: Roel Akhtar DO [Primary Care Provider] - 1-2 days
[2018-08-05] MEDS ORDERED: HYDROcodone/APAP 5-325MG 1 EACH TAB PO STA (14:14)
[2018-08-05 14:32] LABS: Appearance,Urine Clear (Clear); Bilirubin,Urine Negative (Negative); Blood,Urine Negative (Negative); Color,Urine Yellow; Glucose,Urine (UA) Negative (Negative); Ketones,Urine 1+ (Negative); Leukocyte Esterase,Urine Negative (Negative); Mucus,Urine Many /hpf; Nitrite,Urine Negative (Negative); PH, Urine 6.5 (5.0-8.0); Protein,Urine 1+ (Negative); RBC,Urine 1 /hpf (0-5); Specific Gravity,Urine 1.023 (1.001-1.035); Squamous Epithelial Cell,Urine <1 /hpf (0-4); Urobilinogen,Urine <2.0 mg/dL (<2.0); WBC,Urine 3 /hpf (0-5)
[2018-08-05 14:43] LABS: Amphetamine Screen,Urine Not Detected (NotDetected); Barbiturate Screen,Urine Not Detected (NotDetected); Benzodiazepines Screen,Urine Detected (NotDetected); Cocaine Screen,Urine Not Detected (NotDetected); Methadone Screen, Urine Not Detected (NotDetected); Opiate Screen,Urine Not Detected (NotDetected); Oxycodone Screen, Urine Not Detected (NotDetected); Phencyclidine Screen,Urine Not Detected (NotDetected); Tricyclic Antidepressant,Urine Not Detected (NotDetected); Urn Cannabinoid Scrn Not Detected (NotDetected)
[2018-08-05 14:51] LABS: Basophils % (A) 1 %; Eosinophils # (A) 0.1 k/uL (0-0.7); Eosinophils % (A) 2 %; HCT 40.1 % (39.0-53.0); Lymphocytes # (A) 1.5 k/uL (1.0-4.8); Lymphocytes % (A) 40 %; MCH 26.4 pg (25.0-35.0); MCHC 32.3 g/dL (31.0-37.0); MCV 81.7 fL (80.0-100.0); Mean Platelet Volume 7.4; Monocytes # (A) 0.3 k/uL (0-1.0); Monocytes % (A) 7 %; Neutrophils # (A) 1.8 k/uL (1.3-7.7); Neutrophils % (A) 47 %; Platelet Count 232 k/uL (150-450); Poikilocytosis Slight; RDW 14.4 % (11.5-15.5); WBC 3.7 k/uL (3.8-10.6)
[2018-08-05 15:00] LABS: ALT 22 U/L (21-72); AST 25 U/L (17-59); African American GFR (CKD) >90 (>60 ml/min/1.73 sqM); Albumin 4.5 g/dL (3.5-5.0); Alkaline Phosphatase 89 U/L (38-126); Anion Gap 10 mmol/L; Blood Urea Nitrogen 10 mg/dL (9-20); Calcium 9.8 mg/dL (8.4-10.2); Carbon Dioxide 22 mmol/L (22-30); Chloride 107 mmol/L (98-107); Glucose 104 mg/dL (74-99); Potassium 3.6 mmol/L (3.5-5.1); Sodium 139 mmol/L (137-145); Total Bilirubin 0.5 mg/dL (0.2-1.3); Total Protein 8.3 g/dL (6.3-8.2)
[2018-08-05] MEDS ORDERED: ALPRAZolam 0.5 MG TAB PO STA (16:40)
[2018-08-05] MEDS: oxyCODONE-APAP 5-325MG 1 EACH TAB PO PRN (22:43)
[2018-08-06] MEDS: GABAPENTIN 300 MG CAP PO SCH ×3 (04:58→14:18)
[2018-08-06] MEDS: oxyCODONE-APAP 5-325MG 1 EACH TAB PO PRN ×3 (05:05→18:11)
[2018-08-06] MEDS: ALPRAZolam 0.5 MG TAB PO PRN ×2 (08:01→14:18)
[2018-08-06 18:15] VITALS: BP 109/69; PULSE 71; RESP 17; TEMP 98.3
== END 2018-08-06 18:15 ==
LOC: EC 12:38
DX: F32.9 Major depressive disorder, single episode, unspecified (principal); R45.851 Suicidal ideations; T81.49XA Infection following a procedure, other surgical site, initial encounter; F17.200 Nicotine dependence, unspecified, uncomplicated; Z79.899 Other long term (current) drug therapy; Z89.421 Acquired absence of other right toe(s)
CPT/HCPCS: 36415; 80053; 80306; 81001; 82075; 85025; 99284

== ENCOUNTER 2018-11-19 18:57 | Observation (INO) | payer OTHER ==
--- NOTE | 2018-11-19 22:41 | ED ---
General Adult HPI - General Chief complaint: Recheck/Abnormal Lab/Rx Stated complaint: needs picc line replaced Time Seen by Provider: 11/19/18 22:03 Source: patient, RN notes reviewed, old records reviewed Mode of arrival: ambulatory Limitations: no limitations - History of Present Illness Initial comments: 42-year-old male patient presents to ED for PICC line placement. Patient reports that approximately one month ago he had osteomyelitis of the right foot and had all toes amputated. Patient was discharged with a PICC line receiving Rocephin and clindamycin. Patient reports that last night he rolled in bed and actually pulled out his PICC line. Denies any current symptoms of infection. Presents to ED for PICC line placement. Systemic: Pt denies fatigue, fever/chills, rash. Pt denies weakness, night sweats, weight loss. Neuro: Pt denies headache, visual disturbances, syncope or pre-syncope. HEENT: Pt denies ocular discharge or irritation, otalgia, rhinorrhea, pharyngitis or notable lymphadenopathy. Cardiopulmonary: Pt denies chest pain, SOB, heart palpitations, dyspnea on exertion. Abdominal/GI: Pt denies abdominal pain, n/v/d. : Pt denies dysuria, burning w/ urination, frequency/urgency. Denies new onset urinary or bowel incontinence. MSK: Pt denies myalgia, loss of strength or function in extremities. Neuro: Pt denies new onset weakness, paresthesias. - Related Data Home Medications Medication Instructions Recorded Confirmed ALPRAZolam [Xanax] 0.5 mg PO Q8H PRN 06/21/18 11/19/18 Cleocin(Unknown Dose) 1 dose IV DIRECTED 11/19/18 11/19/18 DULoxetine HCL [Cymbalta] 30 mg PO DAILY 11/19/18 11/19/18 Heparin(Unknown Dose) 1 dose SQ DIRECTED 11/19/18 11/19/18 Kefzol(Unknown Dose) 1 dose IV DIRECTED 11/19/18 11/19/18 oxyCODONE HCL [oxyCODONE HCL (IR)] 30 mg PO Q6H PRN 11/19/18 11/19/18 Allergies Allergy/AdvReac Type Severity Reaction Status Date / Time No Known Allergies Allergy Verified 11/19/18 22:04 Review of Systems ROS Statement: Those systems with pertinent positive or pertinent negative responses have been documented in the HPI. ROS Other: All systems not noted in ROS Statement are negative. Past Medical History Past Medical History: No Reported History History of Any Multi-Drug Resistant Organisms: None Reported Past Surgical History: No Surgical Hx Reported Additional Past Surgical History / Comment(s): RIGHT FOOT- ALL 5 TOES AMPUTATION FROM FROSTBITE, recent septic foot surgery. Past Psychological History: Anxiety, Depression Smoking Status: Current every day smoker Past Alcohol Use History: None Reported Past Drug Use History: None Reported General Exam - General Exam Comments Initial Comments: Constitutional: NAD, AOX3, Pt has pleasant affect. HEENT: NC/AT, trachea midline, neck supple, no lymphadenopathy. Posterior pharynx non erythematous, without exudates. External ears appear normal, without discharge. Mucous membranes moist. Eyes PERRLA, EOM intact. There is no scleral icterus. No pallor noted. Cardiopulmonary: RRR, no murmurs, rubs or gallops, no JVD noted. Lungs CTAB in anterior and posterior perez. No peripheral edema. Abdominal exam: Abdomen soft and non-distended. Abdomen non-tender to palpation in all 4 quadrants. Bowel sounds active in LLQ. No hepatosplenomegaly. No ecchymosis Neuro: CN II-XII grossly intact. No nuchal rigidity. No raccon eyes, no barrett sign, no hemotympanum. No cervical spinal tenderness. MSK: No posterior calf tenderness bilaterally, homans sign negative bilaterally. Posterior tibialis and radial pulse +2 bilaterally. Sensation intact in upper and lower extremities. Full active ROM in upper and lower extremities, 5/5 stregnth. Right foot clean, dry, no drainage, no erythema. Limitations: no limitations Course Vital Signs 11/19/18 11/19/18 20:39 23:46 Temperature 98.5 F 98.5 F Pulse Rate 94 68 Respiratory 16 18 Rate Blood Pressure 120/71 130/85 O2 Sat by Pulse 97 100 Oximetry Medical Decision Making - Medical Decision Making 42-year-old male patient presents to ED for PICC line placement. Patient reports that approximately one month ago he had osteomyelitis of the right foot and had all toes amputated. Patient was discharged with a PICC line receiving Rocephin and clindamycin. Patient reports that last night he rolled in bed and actually pulled out his PICC line. Denies any current symptoms of infection. Presents to ED for PICC line placement. Vital signs stable, afebrile. Physical exam are not display acute pathology. Laboratory Investigations noncompressive. Foot digit appears clean, dry no drainage. Patient antibiotics administered peripherally. Patient admitted for PICC line placement. Case discussed with Dr. Molina. - Lab Data Result diagrams: 11/19/18 23:35 11/19/18 23:35 Lab Results 11/19/18 11/19/18 11/19/18 Range/Units 23:35 23:35 23:35 WBC 6.6 (3.8-10.6) k/uL RBC 4.15 L (4.30-5.90) m/uL Hgb 11.5 L (13.0-17.5) gm/dL Hct 33.8 L (39.0-53.0) % MCV 81.5 (80.0-100.0) fL MCH 27.8 (25.0-35.0) pg MCHC 34.1 (31.0-37.0) g/dL RDW 16.2 H (11.5-15.5) % Plt Count 231 (150-450) k/uL Neutrophils % 56 % Lymphocytes % 28 % Monocytes % 5 % Eosinophils % 7 % Basophils % 1 % Neutrophils # 3.7 (1.3-7.7) k/uL Lymphocytes # 1.8 (1.0-4.8) k/uL Monocytes # 0.4 (0-1.0) k/uL Eosinophils # 0.5 (0-0.7) k/uL Basophils # 0.0 (0-0.2) k/uL Anisocytosis Slight Sodium 137 (137-145) mmol/L Potassium 4.0 (3.5-5.1) mmol/L Chloride 103 (98-107) mmol/L Carbon Dioxide 22 (22-30) mmol/L Anion Gap 12 mmol/L BUN 18 (9-20) mg/dL Creatinine 0.79 (0.66-1.25) mg/dL Est GFR (CKD-EPI)AfAm >90 (>60 ml/min/1.73 sqM) Est GFR (CKD-EPI)NonAf >90 (>60 ml/min/1.73 sqM) Glucose 91 (74-99) mg/dL Plasma Lactic Acid Suman 0.5 L (0.7-2.0) mmol/L Calcium 9.2 (8.4-10.2) mg/dL Total Bilirubin 0.4 (0.2-1.3) mg/dL AST 40 (17-59) U/L ALT 34 (21-72) U/L Alkaline Phosphatase 108 (38-126) U/L Total Protein 8.1 (6.3-8.2) g/dL Albumin 4.2 (3.5-5.0) g/dL Disposition Clinical Impression: S/P PICC central line placement Disposition: ADMITTED IP TO THIS [facility] Condition: Fair Is patient prescribed a controlled substance at d/c from ED?: No Referrals: Niel Bhardwaj MD [Primary Care Provider] - 1-2 days
[2018-11-19] MEDS ORDERED: SODIUM CHLORIDE 0.9% 1,000 ML IV STA (23:14)
[2018-11-19] MEDS ORDERED: MORPHINE SULFATE 4 MG/ML SYRINGE IV STA (23:25)
[2018-11-19 23:43] LABS: Anisocytosis Slight; Basophils % (A) 1 %; Eosinophils # (A) 0.5 k/uL (0-0.7); Eosinophils % (A) 7 %; HCT 33.8 % (39.0-53.0); HGB 11.5 gm/dL (13.0-17.5); Lymphocytes # (A) 1.8 k/uL (1.0-4.8); Lymphocytes % (A) 28 %; MCH 27.8 pg (25.0-35.0); MCHC 34.1 g/dL (31.0-37.0); MCV 81.5 fL (80.0-100.0); Mean Platelet Volume 5.7; Monocytes # (A) 0.4 k/uL (0-1.0); Monocytes % (A) 5 %; Neutrophils # (A) 3.7 k/uL (1.3-7.7); Neutrophils % (A) 56 %; Platelet Count 231 k/uL (150-450); RBC 4.15 m/uL (4.30-5.90); RDW 16.2 % (11.5-15.5); WBC 6.6 k/uL (3.8-10.6)
[2018-11-19 23:58] LABS: ALT 34 U/L (21-72); AST 40 U/L (17-59); African American GFR (CKD) >90 (>60 ml/min/1.73 sqM); Albumin 4.2 g/dL (3.5-5.0); Alkaline Phosphatase 108 U/L (38-126); Anion Gap 12 mmol/L; Blood Urea Nitrogen 18 mg/dL (9-20); Calcium 9.2 mg/dL (8.4-10.2); Carbon Dioxide 22 mmol/L (22-30); Chloride 103 mmol/L (98-107); Glucose 91 mg/dL (74-99); Sodium 137 mmol/L (137-145); Total Bilirubin 0.4 mg/dL (0.2-1.3); Total Protein 8.1 g/dL (6.3-8.2)
[2018-11-20] MEDS ORDERED: CLINDAMYCIN 900 MG in DEXTROSE 5% IN WATER 50 ML IVPB ONE ×2
[2018-11-20 01:35] LABS: Appearance,Urine Clear (Clear); Bilirubin,Urine Negative (Negative); Blood,Urine Negative (Negative); Color,Urine Yellow; Glucose,Urine (UA) Negative (Negative); Ketones,Urine Negative (Negative); Leukocyte Esterase,Urine Negative (Negative); Nitrite,Urine Negative (Negative); PH, Urine 6.5 (5.0-8.0); Protein,Urine Negative (Negative); Specific Gravity,Urine 1.019 (1.001-1.035); Urobilinogen,Urine <2.0 mg/dL (<2.0)
[2018-11-20] MEDS ORDERED: NALOXONE 0.4 MG/ML 1 ML VIAL IV PRN (02:00)
[2018-11-20] MEDS: MORPHINE SULFATE 4 MG/ML SYRINGE IVP PRN ×2 (03:24→11:37)
[2018-11-20 03:48] VITALS: BMI 23.3
[2018-11-20] MEDS: ALPRAZolam 0.5 MG TAB PO PRN ×2 (04:26→13:25)
--- NOTE | 2018-11-20 04:36 | P.HPIM ---
History of Present Illness H&P Date: 11/20/18 Chief Complaint: accidental removal of PICC line 42-year-old male with no significant past medical history. Patient had frostbite resulting in amputation of his right foot toes then healed except for a small area where it Draining and then resulted in some swelling and pain and eventually 1 month ago he got evaluated and was told that he has osteomyelitis for which she had to have surgery done and then was discharged on antibiotic Rocephin and clindamycin through PICC line. Patient has been on this regimen for 2-3 weeks now and today accidentally he was rolling over the bed and removed the PICC line accidentally. He presented to the ED for replacement of his PICC line otherwise he denies any fevers or chills nausea vomiting abdominal pain denies any chest pain or trouble breathing. Review of Systems Pertinent positives as noted in HPI. All other systems were reviewed and are negative Past Medical History Past Medical History: No Reported History History of Any Multi-Drug Resistant Organisms: None Reported Past Surgical History: No Surgical Hx Reported Additional Past Surgical History / Comment(s): RIGHT FOOT- ALL 5 TOES AMPUTATION FROM FROSTBITE, recent septic foot surgery. Past Anesthesia/Blood Transfusion Reactions: No Reported Reaction Past Psychological History: Anxiety, Depression Smoking Status: Current every day smoker Past Alcohol Use History: None Reported Past Drug Use History: None Reported - Past Family History Mother Additional Family Medical History / Comment(s): pulmonary fibrosis. Medications and Allergies Home Medications Medication Instructions Recorded Confirmed Type ALPRAZolam [Xanax] 0.5 mg PO Q8H PRN 06/21/18 11/19/18 History Cleocin(Unknown Dose) 1 dose IV DIRECTED 11/19/18 11/19/18 History DULoxetine HCL [Cymbalta] 30 mg PO DAILY 11/19/18 11/19/18 History Heparin(Unknown Dose) 1 dose SQ DIRECTED 11/19/18 11/19/18 History Kefzol(Unknown Dose) 1 dose IV DIRECTED 11/19/18 11/19/18 History oxyCODONE HCL [oxyCODONE HCL (IR)] 30 mg PO Q6H PRN 11/19/18 11/19/18 History Allergies Allergy/AdvReac Type Severity Reaction Status Date / Time No Known Allergies Allergy Verified 11/19/18 22:04 Physical Exam Vitals: Vital Signs Temp Pulse Resp BP Pulse Ox 11/20/18 03:23 98.2 F 71 18 135/80 98 11/20/18 01:05 98.5 F 69 17 131/100 96 11/19/18 23:46 98.5 F 68 18 130/85 100 11/19/18 20:39 98.5 F 94 16 120/71 97 Intake and Output 11/19/18 11/19/18 11/20/18 14:59 22:59 06:59 Other: Weight 71.577 kg Constitutional: No acute distress, conversant, pleasant Eyes: Anicteric sclerae, moist conjunctiva, no lid-lag Pupils equal round reactive to light ENMT: NC/AT Oropharynx clear, no erythema, exudates Neck: Supple, FROM, no masses, or JVD No carotid bruits No thyromegaly Lungs: Clear to auscultation Clear to percussion Normal respiratory effort, no accessory muscle use Cardiovascular: Heart regular in rate and rhythm, No murmurs, gallops, or rubs No peripheral edema Abdominal: Soft Nontender, no guarding, rebound or rigidity Abdomen moving with respiration Normoactive bowel sounds No hepatomegaly, No splenomegaly No palpable mass No abdominal wall hernia noted Skin: Normal temperature, tone, texture, turgor No induration No subcutaneous nodules No rash, lesions No ulcers Extremities: Patient has surgical dressing over his right foot he reports amputation of the toes over the right foot No digital cyanosis No clubbing Pedal pulses intactover the left foot Radial pulses intact and symmetrical No calf tenderness Psychiatric: Alert and oriented to person, place and time Appropriate affect fair judgement Neuro Muscles Strength 5/5 in all 4 extremities Sensation to light touch grossly present throughout Cranial nerves II-XII grossly intact No focal sensory deficits Lymphatics: no palpable cervical or supraclavicular , or inguinal lymph nodes Results CBC & Chem 7: 11/19/18 23:35 11/19/18 23:35 Labs: Abnormal Lab Results - Last 24 Hours (Table) 11/19/18 11/19/18 Range/Units 23:35 23:35 RBC 4.15 L (4.30-5.90) m/uL Hgb 11.5 L (13.0-17.5) gm/dL Hct 33.8 L (39.0-53.0) % RDW 16.2 H (11.5-15.5) % Plasma Lactic Acid Suman 0.5 L (0.7-2.0) mmol/L Thrombosis Risk Factor Assmnt - Choose All That Apply Any of the Below Risk Factors Present?: Yes Each Factor Represents 1 point: Age 41-60 years Other Risk Factors: No Other congenital or acquired thrombophilia - If yes, enter type in comment: No Thrombosis Risk Factor Assessment Total Risk Factor Score: 1 Thrombosis Risk Factor Assessment Level: Low Risk Assessment and Plan Assessment: 42-year-old male with history of osteomyelitis admitted under observation with anticipated length of stay less than to midnight due to accidental removal of the PICC line for reevaluation and re-insertion of PICC line Plan: Osteomyelitis Accidental PICC line removal Patient admitted under observation for insertion of new PICC line in the morning Continue antibiotics Continue home meds DVT prophylaxis heparin subcu 3 times a day Full code Discussed with: Patient, ER, RN Anticipated length of stay less than [address]: Home A total of 60 minutes was spent on the care of this complex patient more than 50% of the time was spent in counseling and care coordination.
[2018-11-20] MEDS ORDERED: HEPARIN SODIUM,PORCINE 5,000 UNIT/ML 1 ML VIAL SQ SCH (08:00)
[2018-11-20] MEDS ORDERED: DULoxetine HCL 30 MG CAPSULE.DR PO SCH (09:00)
[2018-11-20] MEDS ORDERED: LIDOCAINE 1% INJ 10MG/ML (20 ML MDV) ONE (10:09)
[2018-11-20] MEDS: LIDOCAINE 1% INJ 10MG/ML (20 ML MDV) SQ ONE ×2 (10:24→10:32)
--- NOTE | 2018-11-20 10:58 | IR ---
PICC LINE PLACEMENT: HISTORY: Infection requiring long-term antibiotic therapy PROCEDURE: Ultrasound and fluoroscopic guidance of PICC line placement. COMPLICATIONS: None ANESTHESIA: 1. 1% Lidocaine locally. FINDINGS/TECHNIQUE: The procedure was explained to the patient. The risks, complications, benefits and alternatives were discussed and any questions were answered. Informed consent was obtained. The patient was placed supine on the fluoroscopic table and prepped and draped in the usual sterile fash ion. Utilizing a 21 gauge needle and sonographic and fluoroscopic guidance, access in the right bas ilic vein was achieved and there is placement of a 0.018 guidewire. The vein is patent. A 5-F. lozada th was placed over the guidewire. The guidewire and dilator were removed and a 5-F. Double lumen PIC C line was placed through the sheath with the tip at the level of the SVC. The sheath was removed, t he catheter was flushed and sutured into position. The patient was stable throughout the procedure a nd remained stable upon discharge from the Department of Radiology. The vein puncture was patent under ultrasound. A topete scale image was obtained to document patency of the vein punctured. All elements of the maximal barrier technique were utilized. FLUOROSCOPY TIME: 0.2 minutes and one image submitted IMPRESSION: Successful PICC double lumen line placement under ultrasound and fluoroscopic guidance.
--- NOTE | 2018-11-20 11:05 | P.DS ---
Providers Date of admission: 11/20/18 03:13 Expected date of discharge: 11/20/18 Attending physician: Pepe Ramsey MD Consults: 11/20/18 00:59 Consult Physician Stat Consulting Provider: Lamberto Jones Reason/Comments: picc line placement Do you want consulting provider notified?: Yes, Notify in am Primary care physician: [facility] Course: 42-year-old male with no significant past medical history. Patient had frostbite resulting in amputation of his right foot toes then healed except for a small area where it Draining and then resulted in some swelling and pain and eventually 1 month ago he got evaluated and was told that he has osteomyelitis for which she had to have surgery done and then was discharged on antibiotic Rocephin and clindamycin through PICC line. Patient has been on this regimen for 2-3 weeks now and today accidentally he was rolling over the bed and removed the PICC line accidentally. He presented to the ED for replacement of his PICC line otherwise he denies any fevers or chills nausea vomiting abdominal pain denies any chest pain or trouble breathing. PICC line was replaced by interventional radiology on 11/20/2018. There is no complications with the procedure. Patient was seen and examined. No acute events overnight. Patient denies any chest pain, shortness breath or palpitations. No nausea or vomiting. No fever or chills. General: [non toxic], [no distress], [appears at stated age] Derm: [warm], [dry] Head: [atraumatic], [normocephalic], [symmetric] Psych: [Alert], [oriented], [appropriate affect] Assessment and plan Osteomyelitis Accidental PICC line removal [PICC line has been replaced. Patient has IV antibiotics and home health set from his admission in [place]. Requesting 3 day supply of pain medication and Xanax. Advised to follow-up PCP in 1-2 days.] Procedures: PICC line Patient Condition at Discharge: Fair Plan - Discharge Summary Discharge Rx Participant: Yes New Discharge Prescriptions: Continue DULoxetine HCL [Cymbalta] 30 mg PO DAILY Kefzol(Unknown Dose) 1 dose IV DIRECTED Cleocin(Unknown Dose) 1 dose IV DIRECTED Heparin(Unknown Dose) 1 dose SQ DIRECTED oxyCODONE HCL [oxyCODONE HCL (IR)] 30 mg PO Q6H PRN #12 tab PRN Reason: Pain ALPRAZolam [Xanax] 0.5 mg PO Q8H PRN #9 tab PRN Reason: Anxiety Discharge Medication List Cleocin(Unknown Dose) 1 dose IV DIRECTED 11/19/18 [History] DULoxetine HCL [Cymbalta] 30 mg PO DAILY 11/19/18 [History] Heparin(Unknown Dose) 1 dose SQ DIRECTED 11/19/18 [History] Kefzol(Unknown Dose) 1 dose IV DIRECTED 11/19/18 [History] ALPRAZolam [Xanax] 0.5 mg PO Q8H PRN #9 tab 11/20/18 [Rx] oxyCODONE HCL [oxyCODONE HCL (IR)] 30 mg PO Q6H PRN #12 tab 11/20/18 [Rx] Follow up Appointment(s)/Referral(s): Neil Bhardwaj MD [Primary Care Provider] - 1-2 days Activity/Diet/Wound Care/Special Instructions: Diet: Regular Follow-up PCP within 1-2 days of discharge. Discharge Disposition: HOME SELF-CARE
[2018-11-20 14:13] VITALS: BP 130/72; PULSE 96; RESP 14; TEMP 98.7
== END 2018-11-20 17:21 | disposition home or self-care (01) ==
LOC: EC 18:57 → 4SSUR 11-20 03:13
PROVIDERS: ADMIT Internal Medicine; ATTEND Internal Medicine
DX: T82.898A Other specified complication of vascular prosthetic devices, implants and grafts, initial encounter (principal); M86.9 Osteomyelitis, unspecified; F41.9 Anxiety disorder, unspecified; F32.9 Major depressive disorder, single episode, unspecified; F17.200 Nicotine dependence, unspecified, uncomplicated; Z89.421 Acquired absence of other right toe(s); Z89.411 Acquired absence of right great toe; Z79.899 Other long term (current) drug therapy; Z79.891 Long term (current) use of opiate analgesic; Z79.2 Long term (current) use of antibiotics; Z83.6 Family history of other diseases of the respiratory system
CPT/HCPCS: 96376 ×2; 96374; 96375; 99284; 36415; 36573; 80053; 83605; 85025; 81003; G0378; C1751; C1769; J2270 ×2; J0690; J2001

== ENCOUNTER 2018-11-21 12:47 | Observation (INO) | payer OTHER ==
--- NOTE | 2018-11-21 13:23 | ED ---
General Adult HPI - General Chief complaint: Recheck/Abnormal Lab/Rx Stated complaint: picc line problems-revisit Time Seen by Provider: 11/21/18 13:04 Source: patient Mode of arrival: ambulatory Limitations: no limitations - History of Present Illness Initial comments: Dictation was produced using GBS dictation software. please excuse any grammatical, word or spelling errors. Chief Complaint: 42-year-old male presents after unintentional PICC line removal. History of Present Illness: She is a 42-year-old male. He has an indwelling left upper extremity PICC line placed for outpatient antibiotics. Patient states he does not know what antibiotic is that he takes. Takes this medication every 8 hours. According to chart review he takes clindamycin every 8 hours. Patient states these antibiotics for right foot osteomyelitis. Patient states his PICC line fell out while he was getting ready to take a shower. Patient had PICC line in for approximately one to 2 weeks. This is the third time his PICC line fell out. Patient has no other complaints at this time. The ROS documented in this emergency department record has been reviewed and confirmed by me. Those systems with pertinent positive or negative responses have been documented in the HPI. All other systems are other negative and/or noncontributory. PHYSICAL EXAM: General Impression: Alert and oriented x3, not in acute distress HEENT: Normocephalic atraumatic, extra-ocular movements intact, pupils equal and reactive to light bilaterally, mucous membranes moist. Cardiovascular: Heart regular rate and rhythm, S1&S2 audible, no murmurs, rubs or gallops Chest: Lungs clear to auscultation bilaterally, no rhonchi, no wheeze, no rales Abdomen: Bowel sounds present, abdomen soft, non-tender, non-distended, no organomegaly Musculoskeletal: Pulses present and equal in all extremities, no peripheral edema Right foot: Clean dry and intact bandage to the right foot Motor: no focal deficits noted Neurological: CN II-XII grossly intact, no focal motor or sensory deficits noted Skin: Intact with no visualized rashes Psych: Normal affect and mood ED course: 42-year-old male presents after unintentional PICC line removal. All signs upon arrival are within acceptable limits. Discussed patient case with interventional radiology team who requests the patient be admitted for PICC line placement. She has no other complaints at this time. Basic labs ordered for observation admission.Discussed patient case with Dr. Dia who is willing to accept patients care. Interventional radiology team consulted for PICC placement. It on his IV antibiotics. - Related Data Home Medications Medication Instructions Recorded Confirmed DULoxetine HCL [Cymbalta] 30 mg PO DAILY 11/19/18 11/21/18 Clindamycin Intravenous 900 mg IV Q8H 11/20/18 11/21/18 Heparin Lock Flush (Porcine) 500 units IV Q8H 11/20/18 11/21/18 ceFAZolin [Kefzol] 2 gm IV Q8H 11/20/18 11/21/18 Previous Rx's Medication Instructions Recorded ALPRAZolam [Xanax] 0.5 mg PO Q8H PRN #9 tab 11/20/18 oxyCODONE HCL [oxyCODONE HCL (IR)] 30 mg PO Q6H PRN #12 tab 11/20/18 Allergies Allergy/AdvReac Type Severity Reaction Status Date / Time No Known Allergies Allergy Verified 11/21/18 12:53 Review of Systems ROS Statement: Those systems with pertinent positive or pertinent negative responses have been documented in the HPI. ROS Other: All systems not noted in ROS Statement are negative. Past Medical History Past Medical History: No Reported History History of Any Multi-Drug Resistant Organisms: None Reported Past Surgical History: No Surgical Hx Reported Additional Past Surgical History / Comment(s): RIGHT FOOT- ALL 5 TOES AMPUTATION FROM FROSTBITE, recent septic foot surgery. Past Anesthesia/Blood Transfusion Reactions: No Reported Reaction Past Psychological History: Anxiety, Depression Smoking Status: Current every day smoker Past Alcohol Use History: None Reported, Occasional Past Drug Use History: None Reported - Past Family History Mother Additional Family Medical History / Comment(s): pulmonary fibrosis. General Exam Limitations: no limitations Course Vital Signs 11/21/18 12:50 Temperature 98.6 F Pulse Rate 91 Respiratory 18 Rate Blood Pressure 127/65 O2 Sat by Pulse 98 Oximetry Disposition Clinical Impression: PIC line (peripherally inserted central catheter) removal Disposition: ADMITTED IP TO THIS [facility] Condition: Good Referrals: Neil Bhardwaj MD [Primary Care Provider] - 1-2 days Decision Time: 13:45
[2018-11-21] MEDS ORDERED: NALOXONE 0.4 MG/ML 1 ML VIAL IV PRN (13:43)
[2018-11-21] MEDS ORDERED: CEFAZOLIN 2 GM IV SCH (13:45)
[2018-11-21] MEDS ORDERED: CLINDAMYCIN 900 MG IV SCH (13:45)
--- NOTE | 2018-11-21 14:30 | P.HPIM ---
History of Present Illness 42-year-old pleasant gentleman was diagnosed with ostial myelitis after a frostbite and amputation of the toes on the right side and presently on clindamycin and ceftezole and left with the about 30-35 days of IV antibiotic came in has his PICC line fell out. Patient presently any fever chills nausea vomiting abdominal pain patient denied any significant pain in the amputation site area. That area is covered with gauze. Review of Systems REVIEW OF SYSTEMS: CONSTITUTIONAL: No fever, no malaise, no fatigue. HEENT: No recent visual problems or hearing problems. Denied any sore throat. CARDIOVASCULAR: No chest pain, orthopnea, PND, no palpitations, no syncope. PULMONARY: No shortness of breath, no cough, no hemoptysis. GASTROINTESTINAL: No diarrhea, no nausea, no vomiting, no abdominal pain. NEUROLOGICAL: No headaches, no weakness, no numbness. HEMATOLOGICAL: Denies any bleeding or petechiae. GENITOURINARY: Denies any burning micturition, frequency, or urgency. MUSCULOSKELETAL/RHEUMATOLOGICAL: Denies any joint pain, swelling, or any muscle pain. ENDOCRINE: Denies any polyuria or polydipsia. The rest of the 14-point review of systems is negative. Past Medical History Past Medical History: No Reported History History of Any Multi-Drug Resistant Organisms: None Reported Past Surgical History: No Surgical Hx Reported Additional Past Surgical History / Comment(s): RIGHT FOOT- ALL 5 TOES AMPUTATION FROM FROSTBITE, recent septic foot surgery. Past Anesthesia/Blood Transfusion Reactions: No Reported Reaction Past Psychological History: Anxiety, Depression Smoking Status: Current every day smoker Past Alcohol Use History: None Reported, Occasional Past Drug Use History: None Reported - Past Family History Mother Additional Family Medical History / Comment(s): pulmonary fibrosis. Medications and Allergies Home Medications Medication Instructions Recorded Confirmed Type DULoxetine HCL [Cymbalta] 30 mg PO DAILY 11/19/18 11/21/18 History ALPRAZolam [Xanax] 0.5 mg PO Q8H PRN #9 tab 11/20/18 11/21/18 Rx Clindamycin Intravenous 900 mg IV Q8H 11/20/18 11/21/18 History Heparin Lock Flush (Porcine) 500 units IV Q8H 11/20/18 11/21/18 History ceFAZolin [Kefzol] 2 gm IV Q8H 11/20/18 11/21/18 History oxyCODONE HCL [oxyCODONE HCL (IR)] 30 mg PO Q6H PRN #12 tab 11/20/18 11/21/18 Rx Allergies Allergy/AdvReac Type Severity Reaction Status Date / Time No Known Allergies Allergy Verified 11/21/18 12:53 Physical Exam Vitals: Vital Signs Temp Pulse Resp BP Pulse Ox 11/21/18 12:50 98.6 F 91 18 127/65 98 Intake and Output 11/20/18 11/21/18 11/21/18 22:59 06:59 14:59 Other: Weight 72.575 kg PHYSICAL EXAMINATION: GENERAL: The patient is alert and oriented x3, not in any acute distress. Well developed, well nourished. HEENT: Pupils are round and equally reacting to light. EOMI. No scleral icterus. No conjunctival pallor. Normocephalic, atraumatic. No pharyngeal erythema. No thyromegaly. CARDIOVASCULAR: S1 and S2 present. No murmurs, rubs, or gallops. PULMONARY: Chest is clear to auscultation, no wheezing or crackles. ABDOMEN: Soft, nontender, nondistended, normoactive bowel sounds. No palpable organomegaly. MUSCULOSKELETAL: No joint swelling or deformity. EXTREMITIES: No cyanosis, clubbing, or pedal edema. Amputated right toe was and covered with surgical packing was a packing is removed I'll examine that area. NEUROLOGICAL: Gross neurological examination did not reveal any focal deficits. SKIN: No rashes. Assessment and Plan Plan: -Osteomyelitis of the right foot: His PICC line will be replaced and patient will be resumed clindamycin and ceftezole and. -Nicotine abuse: Counseling was provided -Depression -Continued nicotine use: Counseling was provided Patient will be resumed on his home medications DVT prophylaxis early ambulation
[2018-11-21 15:13] LABS: Anisocytosis Slight; Basophils # (A) 0.1 k/uL (0-0.2); Basophils % (A) 1 %; Eosinophils # (A) 0.1 k/uL (0-0.7); Eosinophils % (A) 2 %; HCT 33.6 % (39.0-53.0); HGB 10.7 gm/dL (13.0-17.5); Lymphocytes # (A) 0.6 k/uL (1.0-4.8); Lymphocytes % (A) 10 %; MCH 27.2 pg (25.0-35.0); MCHC 31.9 g/dL (31.0-37.0); MCV 85.3 fL (80.0-100.0); Mean Platelet Volume 6.7; Monocytes # (A) 0.2 k/uL (0-1.0); Monocytes % (A) 3 %; Neutrophils # (A) 5.1 k/uL (1.3-7.7); Neutrophils % (A) 83 %; Platelet Count 163 k/uL (150-450); RBC 3.94 m/uL (4.30-5.90); RDW 16.6 % (11.5-15.5); WBC 6.2 k/uL (3.8-10.6)
[2018-11-21 15:24] LABS: African American GFR (CKD) >90 (>60 ml/min/1.73 sqM); Anion Gap 11 mmol/L; Blood Urea Nitrogen 18 mg/dL (9-20); Calcium 9.1 mg/dL (8.4-10.2); Carbon Dioxide 23 mmol/L (22-30); Chloride 102 mmol/L (98-107); Glucose 105 mg/dL (74-99); Potassium 4.1 mmol/L (3.5-5.1); Sodium 136 mmol/L (137-145)
[2018-11-21] MEDS: DULoxetine HCL 30 MG CAPSULE.DR PO SCH (16:59)
[2018-11-21] MEDS: CLINDAMYCIN 900 MG in DEXTROSE 5% IN WATER 50 ML IVPB SCH ×4 (17:02→23:03)
[2018-11-21] MEDS: SODIUM CHLORIDE 0.9% 1,000 ML IV SCH (17:05)
[2018-11-21] MEDS ORDERED: ACETAMINOPHEN TAB 325 MG TAB PO PRN (19:38)
[2018-11-21] MEDS: ALPRAZolam 0.5 MG TAB PO PRN (19:47)
[2018-11-21] MEDS: NICOTINE 21MG/24HR PATCH TRANSDERM SCH (20:13)
[2018-11-22] MEDS: NICOTINE 21MG/24HR PATCH TRANSDERM SCH (07:22)
[2018-11-22] MEDS: DULoxetine HCL 30 MG CAPSULE.DR PO SCH (07:22)
[2018-11-22] MEDS: CLINDAMYCIN 900 MG in DEXTROSE 5% IN WATER 50 ML IVPB SCH ×6 (08:31→22:51)
[2018-11-22] MEDS: ALPRAZolam 0.5 MG TAB PO PRN ×2 (11:04→20:49)
--- NOTE | 2018-11-22 14:09 | P.DS ---
Providers Date of admission: 11/21/18 13:43 Expected date of discharge: 11/22/18 Attending physician: Cachorro Dia Primary care physician: Neil Bhardwaj [facility] Course: Final diagnosis Osteomyelitis of the right foot PICC line replacement Nicotine abuse Depression Continue nicotine use Discharge disposition Patient is being discharged in stable condition with guarded prognosis to home and will continue with IV antibiotic therapy. Patient will follow-up with Dr. Neil Bhradwaj upon discharge. Total time taken is 35 minutes. History of present illness This is a 32-year-old male who was recently diagnosed with osteomyelitis after frostbite and had an amputation of the toes on the right foot stating that his PICC line fell out and is here for PICC line replacement and is being closely monitored. During hospitalization patient was continued on clindamycin and Cefazolin. Nursing staff spoke to interventional radiology today and was told he will receive his replacement PICC line sometime after 1 PM today. Patient denies any chest pain, shortness of breath, or palpitations at this time. Patient is afebrile. Patient denies any nausea or vomiting and is tolerating diet. Currently patient's condition is stable and will be discharged home once PICC line is placed. Guarded prognosis. On exam vital signs are stable. Temp is 97.6F, pulse is 80, respirations are 16, blood pressure is 119/67, oxygen saturation is 95% on room air. Cardio S1 and S2 are normal. Respiratory system shows clear to auscultation. Abdomen is soft, thin, nontender. Nervous system shows no focal deficits. Please refer to medication reconciliation sheet for a list of medications. Patient Condition at Discharge: Good Plan - Discharge Summary Discharge Rx Participant: No New Discharge Prescriptions: No Action DULoxetine HCL [Cymbalta] 30 mg PO DAILY oxyCODONE HCL [oxyCODONE HCL (IR)] 30 mg PO Q6H PRN #12 tab PRN Reason: Pain ALPRAZolam [Xanax] 0.5 mg PO Q8H PRN #9 tab PRN Reason: Anxiety Clindamycin Intravenous 900 mg IV Q8H Heparin Lock Flush (Porcine) 500 units IV Q8H ceFAZolin [Kefzol] 2 gm IV Q8H Discharge Medication List DULoxetine HCL [Cymbalta] 30 mg PO DAILY 11/19/18 [History] ALPRAZolam [Xanax] 0.5 mg PO Q8H PRN #9 tab 11/20/18 [Rx] Clindamycin Intravenous 900 mg IV Q8H 11/20/18 [History] Heparin Lock Flush (Porcine) 500 units IV Q8H 11/20/18 [History] ceFAZolin [Kefzol] 2 gm IV Q8H 11/20/18 [History] oxyCODONE HCL [oxyCODONE HCL (IR)] 30 mg PO Q6H PRN #12 tab 11/20/18 [Rx] Follow up Appointment(s)/Referral(s): [facility], [NON-STAFF] - [facility], [REFERRING] - Neil Bhardwaj MD [Primary Care Provider] - 1-2 days Activity/Diet/Wound Care/Special Instructions: IV antibiotics and home care will resume as prior to admission.
--- NOTE | 2018-11-22 14:18 | P.PN ---
Subjective Progress Note Date: 11/22/18 Principal diagnosis: This is a 42-year-old male who was recently admitted with osteomyelitis of the right foot and is awaiting a PICC line replacement as he is currently on IV antibiotic therapy. Patient was scheduled to have his PICC line replaced today and due to unforeseen circumstances the person placing PICC lines was called away to another facility and will not be returning today. Patient will be scheduled to have his PICC line placed tomorrow and can be discharged at that point. Patient denies any chest pain, shortness of breath, or palpitations at this time. Patient is afebrile. Patient denies any nausea or vomiting and has been tolerating diet. Will continue to monitor closely. Guarded prognosis. Objective - Vital Signs Vital signs: Vital Signs Temp 97.6 F 11/22/18 12:03 Pulse 80 11/22/18 12:03 Resp 16 11/22/18 12:03 BP 119/67 11/22/18 12:03 Pulse Ox 95 11/22/18 12:03 Intake & Output 11/21/18 11/22/18 11/22/18 18:59 06:59 18:59 Weight 72.575 kg Other: # Voids 2 1 - Exam GENERAL: The patient is alert and oriented x3, not in any acute distress. Well developed, well nourished. HEENT: Pupils are round and equally reacting to light. EOMI. No scleral icterus. No conjunctival pallor. Normocephalic, atraumatic. No pharyngeal erythema. No thyromegaly. CARDIOVASCULAR: S1 and S2 present. No murmurs, rubs, or gallops. PULMONARY: Chest is clear to auscultation, no wheezing or crackles. ABDOMEN: Soft, nontender, nondistended, normoactive bowel sounds. No palpable organomegaly. MUSCULOSKELETAL: No joint swelling or deformity. EXTREMITIES: No cyanosis, clubbing, or pedal edema. Amputated right toe was and covered with surgical packing and dressing that is dry and intact. NEUROLOGICAL: Gross neurological examination did not reveal any focal deficits. SKIN: No rashes. - Labs CBC & Chem 7: 11/21/18 15:00 11/21/18 15:00 Labs: Abnormal Lab Results - Last 24 Hours (Table) 11/21/18 11/21/18 Range/Units 15:00 15:00 RBC 3.94 L (4.30-5.90) m/uL Hgb 10.7 L (13.0-17.5) gm/dL Hct 33.6 L (39.0-53.0) % RDW 16.6 H (11.5-15.5) % Lymphocytes # 0.6 L (1.0-4.8) k/uL Sodium 136 L (137-145) mmol/L Glucose 105 H (74-99) mg/dL Assessment and Plan Assessment: -Osteomyelitis of the right foot: His PICC line will be replaced and patient will be resumed clindamycin and cefazolin. Patient is scheduled to have PICC line replaced in the morning. -Nicotine abuse: Counseling was provided -Depression -Continued nicotine use: Counseling was provided -DVT prophylaxis with early ambulation Recommendations and discussion: Recommend continue current medications, management, symptomatic treatment. Patient was unable to receive replacement PICC line today is a person replacing the PICC lines was called away to another facility and will not return today. Patient will be receiving his PICC line in the morning. Guarded prognosis. Further recommend patient to follow. Probable discharge in 24 hours once PICC line is placed.
[2018-11-22] MEDS: SODIUM CHLORIDE 0.9% 1,000 ML IV SCH (14:19)
[2018-11-22 20:52] LABS: Urine Alcohol Negative (Negative); Urine Barbiturate Negative (Negative); Urine Cocaine Negative (Negative); Urine Methadone Negative (Negative); Urine Opiates Positive (Negative); Urine Phencyclidine Negative (Negative)
[2018-11-23] MEDS: CLINDAMYCIN 900 MG in DEXTROSE 5% IN WATER 50 ML IVPB SCH ×4 (06:20→13:59)
[2018-11-23] MEDS: DULoxetine HCL 30 MG CAPSULE.DR PO SCH (08:10)
[2018-11-23] MEDS: NICOTINE 21MG/24HR PATCH TRANSDERM SCH ×2 (08:10→08:13)
[2018-11-23] MEDS ORDERED: LIDOCAINE 1% INJ 10MG/ML (20 ML MDV) SQ ONE (08:46)
--- NOTE | 2018-11-23 09:18 | IR ---
PICC LINE PLACEMENT: HISTORY: Infection requiring long-term antibiotic therapy PROCEDURE: Ultrasound and fluoroscopic guidance of PICC line placement. COMPLICATIONS: None ANESTHESIA: 1. 1% Lidocaine locally. FINDINGS/TECHNIQUE: The procedure was explained to the patient. The risks, complications, benefits and alternatives were discussed and any questions were answered. Informed consent was obtained. The patient was placed supine on the fluoroscopic table and prepped and draped in the usual sterile fash ion. Utilizing a 21 gauge needle and sonographic and fluoroscopic guidance, access in the left basi lic vein was achieved and there is placement of a 0.018 guidewire. The vein is patent. A 4-F sheath was placed over the guidewire. The guidewire and dilator were removed and a 4-F. PICC line was plac ed through the sheath with the tip at the level of the SVC. The sheath was removed, the catheter was flushed and sutured into position. The patient was stable throughout the procedure and remained sta ble upon discharge from the Department of Radiology. The vein puncture was patent under ultrasound. A topete scale image was obtained to document patency of the vein punctured. All elements of the maximal barrier technique were utilized. FLUOROSCOPY TIME: 0.2 minutes and one image submitted IMPRESSION: Successful PICC line placement under ultrasound and fluoroscopic guidance.
[2018-11-23] MEDS: ALPRAZolam 0.5 MG TAB PO PRN (09:41)
[2018-11-23] MEDS: SODIUM CHLORIDE 0.9% 1,000 ML IV SCH (12:02)
--- NOTE | 2018-11-23 14:00 | P.DS ---
Providers Date of admission: 11/21/18 13:43 Expected date of discharge: 11/23/18 Attending physician: Cachorro Dia Primary care physician: Neil Bhardwaj [facility] Course: Patient received a PICC line today and will be going home today with home care and resuming IV antibiotic therapy as previously mentioned. Please refer to 11/22/2018 discharge summary with addendum. Patient Condition at Discharge: Good Plan - Discharge Summary Discharge Rx Participant: No New Discharge Prescriptions: Continue DULoxetine HCL [Cymbalta] 30 mg PO DAILY oxyCODONE HCL [oxyCODONE HCL (IR)] 30 mg PO Q6H PRN #12 tab PRN Reason: Pain ALPRAZolam [Xanax] 0.5 mg PO Q8H PRN #9 tab PRN Reason: Anxiety Heparin Lock Flush (Porcine) 500 units IV Q8H Clindamycin Intravenous 900 mg IV Q8H 34 Days #102 bag ceFAZolin [Kefzol] 2 gm IV Q8H 34 Days #102 syr Discharge Medication List DULoxetine HCL [Cymbalta] 30 mg PO DAILY 11/19/18 [History] ALPRAZolam [Xanax] 0.5 mg PO Q8H PRN #9 tab 11/20/18 [Rx] Heparin Lock Flush (Porcine) 500 units IV Q8H 11/20/18 [History] oxyCODONE HCL [oxyCODONE HCL (IR)] 30 mg PO Q6H PRN #12 tab 11/20/18 [Rx] Clindamycin Intravenous 900 mg IV Q8H 34 Days #102 bag 11/22/18 [Rx] ceFAZolin [Kefzol] 2 gm IV Q8H 34 Days #102 syr 11/22/18 [Rx] Follow up Appointment(s)/Referral(s): [facility], [NON-STAFF] - [facility], [REFERRING] - Neil Bhardwaj MD [Primary Care Provider] - 1-2 days Patient Instructions/Handouts: Peripherally Inserted Central Catheters and Midline Catheters (GEN) Activity/Diet/Wound Care/Special Instructions: IV antibiotics and home care will resume as prior to admission. Activity as tolerated Avoid tobacco use Continue current diet Follow-up with primary care provider after discharge Discharge Disposition: HOME WITH HOME HEALTH SERVICES
[2018-11-23 14:01] VITALS: BP 114/70; PULSE 71; RESP 16; TEMP 98.1
== END 2018-11-23 18:38 | disposition home health service (06) ==
LOC: CATHCVL 12:47 → 4MS4W 13:43
PROVIDERS: ADMIT Internal Medicine; ATTEND Internal Medicine
DX: T82.9XXA Unspecified complication of cardiac and vascular prosthetic device, implant and graft, initial encounter (principal); M86.9 Osteomyelitis, unspecified; F32.9 Major depressive disorder, single episode, unspecified; Z89.421 Acquired absence of other right toe(s); Z89.411 Acquired absence of right great toe; F41.9 Anxiety disorder, unspecified; F17.200 Nicotine dependence, unspecified, uncomplicated; Z79.899 Other long term (current) drug therapy; Z79.891 Long term (current) use of opiate analgesic; Z79.2 Long term (current) use of antibiotics; Z83.6 Family history of other diseases of the respiratory system
CPT/HCPCS: 96365; 96366 ×3; 96367; 99284; 36573; 80048; 85025; 80306; G0378 ×3; C1751; C1769; S4990 ×3; J0690 ×3; J2001

== ENCOUNTER 2018-11-24 09:08 | Emergency (ER) | payer OTHER ==
--- NOTE | 2018-11-24 09:41 | ED ---
General Adult HPI - General Stated complaint: Right Foot Pain post SX Time Seen by Provider: 11/24/18 09:10 Source: patient, EMS, RN notes reviewed Mode of arrival: EMS Limitations: no limitations - History of Present Illness Initial comments: 42-year-old male presents emergency department via EMS chief complaint of right foot pain. Patient's had prior partial amputation secondary to frostbite. Patient was recently discharged from the hospital after PICC line placement. Patient was not discharged with any pain medications his last visit his last refill pain meds were on 11/20/2018 in which he received 12 pills. Patient does have an appointment on Monday with his PCP. Patient denies any fevers or chills. Patient states he's receiving antibiotics. - Related Data Home Medications Medication Instructions Recorded Confirmed DULoxetine HCL [Cymbalta] 30 mg PO DAILY 11/19/18 11/24/18 Heparin Lock Flush (Porcine) 500 units IV Q8H 11/20/18 11/24/18 Previous Rx's Medication Instructions Recorded ALPRAZolam [Xanax] 0.5 mg PO Q8H PRN #9 tab 11/20/18 oxyCODONE HCL [oxyCODONE HCL (IR)] 30 mg PO Q6H PRN #12 tab 11/20/18 Clindamycin Intravenous 900 mg IV Q8H 34 Days #102 bag 11/22/18 ceFAZolin [Kefzol] 2 gm IV Q8H 34 Days #102 syr 11/22/18 HYDROcodone/APAP 7.5-325MG [Cooks 1 tab PO Q6HR PRN 3 Days #12 tab 11/24/18 7.5-325] Allergies Allergy/AdvReac Type Severity Reaction Status Date / Time No Known Allergies Allergy Verified 11/24/18 09:15 Review of Systems ROS Statement: Those systems with pertinent positive or pertinent negative responses have been documented in the HPI. ROS Other: All systems not noted in ROS Statement are negative. Past Medical History Past Medical History: No Reported History Additional Past Medical History / Comment(s): R foot all 5 toe amputations d/t frostbite, post surgery R foot infection/septic/osteomylitis, chronic R foot pain. History of Any Multi-Drug Resistant Organisms: None Reported Past Surgical History: No Surgical Hx Reported Additional Past Surgical History / Comment(s): RIGHT FOOT- ALL 5 TOES AMPUTATION, recent surgery for septic R foot, picc lines. Past Anesthesia/Blood Transfusion Reactions: No Reported Reaction Past Psychological History: Anxiety, Depression Smoking Status: Current every day smoker Past Alcohol Use History: None Reported Past Drug Use History: None Reported - Past Family History Mother Additional Family Medical History / Comment(s): Mother of pulmonary fibrosis at the age of 69yrs. She was a lung transplant recipient. Father Family Medical History: COPD Additional Family Medical History / Comment(s): Father is an ex smoker. General Exam Limitations: no limitations General appearance: alert, in no apparent distress Head exam: Present: atraumatic, normocephalic, normal inspection Neck exam: Present: normal inspection, full ROM. Absent: tenderness, meningismus, lymphadenopathy Respiratory exam: Present: normal lung sounds bilaterally. Absent: respiratory distress, wheezes, rales, rhonchi, stridor Cardiovascular Exam: Present: regular rate, normal rhythm, normal heart sounds. Absent: systolic murmur, diastolic murmur, rubs, gallop, clicks Extremities exam: Present: other (Right foot there is an partial amputation there is a wound though there is no overt signs of infection including erythema or drainage. Pulses equal bilaterally) Neurological exam: Present: alert, oriented X3 Skin exam: Present: warm, dry, intact, normal color. Absent: rash Course Vital Signs 11/24/18 09:11 Temperature 97.3 F L Pulse Rate 92 Respiratory 18 Rate Blood Pressure 125/89 O2 Sat by Pulse 100 Oximetry Medical Decision Making - Medical Decision Making 42-year-old male present emergency department for for right foot pain. This is from prior amputation there is no overt signs of infection vitals are stable. I did review this maps in which she had last filled prescription on 11 20. Patient will be given pain meds for 2 days and will follow-up on Monday with his PCP for further pain meds he does understand that he needs a follow-up outpatient for any other pain meds. Disposition Clinical Impression: Foot pain, right Disposition: HOME SELF-CARE Condition: Stable Additional Instructions: Please return to the Emergency Department if symptoms worsen or any other concerns. Follow-up with her PCP for any further pain medication. Prescriptions: HYDROcodone/APAP 7.5-325MG [Cooks 7.5-325] 1 tab PO Q6HR PRN 3 Days #12 tab PRN Reason: Pain Is patient prescribed a controlled substance at d/c from ED?: Yes When asked, does pt state using other controlled substances?: Yes If prescribed controlled substance>3 days was MAPS reviewed?: Prescribed <3 Days If opioid is for acute pain is fill amount 7 days or less?: Yes If Rx opioid, was Start Talking consent form obtained?: Yes Referrals: Neil Bhardwaj MD [Primary Care Provider] - 1-2 days Time of Disposition: 09:41
[2018-11-24 09:56] VITALS: BP 125/89; PULSE 92; RESP 18; TEMP 97.3
== END 2018-11-24 10:00 | disposition home or self-care (01) ==
LOC: EC 09:08
DX: M79.671 Pain in right foot (principal); S81.801A Unspecified open wound, right lower leg, initial encounter; F41.9 Anxiety disorder, unspecified; F32.9 Major depressive disorder, single episode, unspecified; F17.200 Nicotine dependence, unspecified, uncomplicated; Z79.899 Other long term (current) drug therapy; Z89.421 Acquired absence of other right toe(s); Z95.828 Presence of other vascular implants and grafts; X58.XXXA Exposure to other specified factors, initial encounter
CPT/HCPCS: 99283

== ENCOUNTER 2018-11-28 10:56 | Inpatient (IN) | payer MEDICAID, OTHER ==
[2018-11-28] MEDS ORDERED: CLINDAMYCIN 600 MG in DEXTROSE 5% IN WATER 50 ML IVPB STA ×2 (11:50)
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
[2018-11-28 12:49] LABS: Amphetamine Screen,Urine Not Detected (NotDetected); Barbiturate Screen,Urine Not Detected (NotDetected); Benzodiazepines Screen,Urine Detected (NotDetected); Cocaine Screen,Urine Detected (NotDetected); Methadone Screen, Urine Not Detected (NotDetected); Opiate Screen,Urine Not Detected (NotDetected); Oxycodone Screen, Urine Not Detected (NotDetected); Phencyclidine Screen,Urine Not Detected (NotDetected); Tricyclic Antidepressant,Urine Not Detected (NotDetected); Urn Cannabinoid Scrn Not Detected (NotDetected)
[2018-11-28] MEDS ORDERED: HYDROcodone/APAP 7.5-325MG 1 EACH TAB PO ONE (13:33)
[2018-11-28 13:37] LABS: Basophils # (A) 0.1 k/uL (0-0.2); Basophils % (A) 1 %; Eosinophils # (A) 0.1 k/uL (0-0.7); Eosinophils % (A) 2 %; HCT 36.7 % (39.0-53.0); HGB 11.9 gm/dL (13.0-17.5); Lymphocytes # (A) 0.8 k/uL (1.0-4.8); Lymphocytes % (A) 15 %; MCH 27.8 pg (25.0-35.0); MCHC 32.3 g/dL (31.0-37.0); MCV 86.1 fL (80.0-100.0); Mean Platelet Volume 5.8; Monocytes # (A) 0.1 k/uL (0-1.0); Monocytes % (A) 3 %; Neutrophils # (A) 4.1 k/uL (1.3-7.7); Neutrophils % (A) 79 %; Platelet Count 282 k/uL (150-450); RBC 4.27 m/uL (4.30-5.90); RDW 15.6 % (11.5-15.5); WBC 5.2 k/uL (3.8-10.6)
[2018-11-28 13:50] LABS: ALT 193 U/L (21-72); AST 180 U/L (17-59); African American GFR (CKD) >90 (>60 ml/min/1.73 sqM); Alkaline Phosphatase 266 U/L (38-126); Anion Gap 9 mmol/L; Blood Urea Nitrogen 11 mg/dL (9-20); Calcium 9.3 mg/dL (8.4-10.2); Carbon Dioxide 31 mmol/L (22-30); Chloride 99 mmol/L (98-107); Glucose 124 mg/dL (74-99); Potassium 3.8 mmol/L (3.5-5.1); Sodium 139 mmol/L (137-145); Total Bilirubin 0.5 mg/dL (0.2-1.3)
[2018-11-28] MEDS ORDERED: MORPHINE SULFATE 2 MG/ML SYRINGE IVP PRN (17:05)
[2018-11-28] MEDS ORDERED: SODIUM CHLORIDE 0.9% 1,000 ML IV SCH (17:15)
[2018-11-28 17:45] LABS: Amorphous Sediment,Urine Occasional /hpf; Appearance,Urine Cloudy (Clear); Bilirubin,Urine Negative (Negative); Blood,Urine Negative (Negative); Color,Urine Yellow; Glucose,Urine (UA) 3+ (Negative); Ketones,Urine 1+ (Negative); Leukocyte Esterase,Urine Negative (Negative); Mucus,Urine Many /hpf; Nitrite,Urine Negative (Negative); Protein,Urine 1+ (Negative); Specific Gravity,Urine 1.026 (1.001-1.035); Squamous Epithelial Cell,Urine 1 /hpf (0-4); WBC,Urine 5 /hpf (0-5)
[2018-11-28] MEDS ORDERED: CLINDAMYCIN 900 MG in DEXTROSE 5% IN WATER 50 ML IVPB SCH ×2 (21:00)
[2018-11-28] MEDS ORDERED: ZIPRASIDONE 20 MG VIAL IM PRN (23:26)
[2018-11-28] MEDS ORDERED: MAG HYDROX/AL HYDROX/SIMETH 30 ML CUP PO PRN (23:26)
[2018-11-28] MEDS ORDERED: MAGNESIUM HYDROXIDE 2,400 MG/10 ML CUP PO PRN (23:26)
[2018-11-29] MEDS: LORazepam 1 MG TAB PO PRN ×3 (00:18→16:50)
[2018-11-29] MEDS: HYDROcodone/APAP 7.5-325MG 1 EACH TAB PO PRN ×4 (00:18→18:21)
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
[2018-11-29] MEDS ORDERED: CLINDAMYCIN 900 MG in DEXTROSE 5% IN WATER 50 ML IVPB SCH ×4 (05:00)
[2018-11-29] MEDS: NICOTINE 21MG/24HR PATCH TRANSDERM SCH (08:01)
[2018-11-29] MEDS: DULoxetine HCL 30 MG CAPSULE.DR PO SCH (08:01)
[2018-11-29] MEDS: CLINDAMYCIN 900 MG in DEXTROSE 5% IN WATER 50 ML IVPB SCH ×4 (08:09→16:34)
[2018-11-29] MEDS: busPIRone HCl 10 MG TAB PO SCH ×2 (12:40→21:40)
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
[2018-11-29 19:05] LABS: Hemoglobin A1C 5.5 % (4.0-6.0)
[2018-11-29] MEDS: hydrOXYzine PAMOATE 25 MG CAP PO SCH (21:40)
[2018-11-30] MEDS: HYDROcodone/APAP 7.5-325MG 1 EACH TAB PO PRN ×2 (00:39→06:28)
[2018-11-30] MEDS: LORazepam 1 MG TAB PO PRN ×2 (00:51→08:17)
[2018-11-30] MEDS: NICOTINE 21MG/24HR PATCH TRANSDERM SCH (08:16)
[2018-11-30] MEDS: busPIRone HCl 10 MG TAB PO SCH ×2 (08:17→20:28)
[2018-11-30] MEDS: DULoxetine HCL 30 MG CAPSULE.DR PO SCH (08:17)
[2018-11-30] MEDS: CLINDAMYCIN 900 MG in DEXTROSE 5% IN WATER 50 ML IVPB SCH ×6 (09:15→16:36)
--- NOTE | 2018-11-30 12:19 | P.PN ---
Progress Note - Text Progress Note Date: 11/30/18 Interval History: Patient was seen lying down in his bed however was agreeable to speak to screen writer in the office. He states that he is continuing to feel depressed and some anxiety throughout the day. He states that a lot of the depression and anxieties related to his pain he feels that it is not well-controlled on Glen. He claims that he was better maintained on oxycodone and was prescribed that according to maps patient had received multiple short durations of prescriptions of this which were filled. Patient states that he was not able to sleep well last night and claims that the only thing that helped him was Xanax. Patient states that he has not been going to groups however we will try to do so today. At this time patient denies any suicidal or homical ideations, intent or plan. Patient denies any auditory, visual hallucinations and denies any paranoia or delusions. Patient denies any side effects from the medications and has been compliant with meds. Mental Status Exam: General Appearance: Patient appears to be older than stated age is alert, directable, and cooperative. Fair hygiene and fair grooming. Behavior: Patient is calmly seated without any agitated behavior. Speech: Patient's speech is fluent and nonpressured. Soft tone Mood/Affect: Patient reports their mood is depressed, affect is congruent and constricted. Suicidality/Homicidality: Patient denies having any suicidal or homicidal ideation intent or plan. Perceptions: Patient denies any auditory or visual hallucinations. Though content/process: There is no evidence of any delusional thought content and thought process is linear and goal-directed. Preoccupied with his medications and the changes. Memory and concentration: AOX3, grossly intact for the purposes of this session Judgment and insight: Poor, improving mildly Assessment Major depressive disorder Anxiety disorder Cocaine abuse Nicotine dependence Plan: -Patient continues to meet criteria for inpatient psychiatric admission for symptom stabilization and safety. Patient has signed adult voluntary form and medication consent and was placed in patient's chart. -Medications: Will increase Cymbalta to 60 mg daily for mood/anxiety along with pain. We'll continue with BuSpar 10 mg twice a day for anxiety. Continue with Vistaril 50 mg daily at bedtime for anxiety/insomnia. Started patient on doxepin 10 mg daily at bedtime for insomnia/mood. -Patient requested to be put back on oxycodone and will be discontinuing Glen. -When necessary Ativan for agitation/aggression. -NRT - nicotine patch -SW on board for discharge planning. we'll offer patient substance abuse rehab.
[2018-11-30] MEDS: LORazepam 0.5 MG TAB PO PRN (16:52)
[2018-11-30] MEDS: DOXEPIN 10 MG CAP PO SCH (20:28)
[2018-11-30] MEDS: hydrOXYzine PAMOATE 25 MG CAP PO SCH (20:28)
[2018-12-01] MEDS: LORazepam 0.5 MG TAB PO PRN ×3 (00:11→22:48)
[2018-12-01] MEDS: NICOTINE 21MG/24HR PATCH TRANSDERM SCH (08:21)
[2018-12-01] MEDS: busPIRone HCl 10 MG TAB PO SCH ×2 (08:22→20:47)
[2018-12-01] MEDS: DULoxetine HCL 60 MG CAPSULE.DR PO SCH (08:22)
[2018-12-01] MEDS: CLINDAMYCIN 900 MG in DEXTROSE 5% IN WATER 50 ML IVPB SCH ×6 (08:59→16:28)
--- NOTE | 2018-12-01 16:52 | P.PN ---
Progress Note - Text Progress Note Date: 12/01/18 IDENTIFICATION DATA: 42-year-old male admitted to MHU with symptoms of depression and suicidal ideations INTERVAL HISTORY: Patient was seen today, He reports being in pain and unable to stay focused. He also says his depression is worse due to his pain. He says he hasnt showered since his admission and had been sitting in the chair to receive his antibiotics. He reports poor sleep due to pain. He says she hasnt been eating well due to his pain. He requested pain medications to be given more often than his current schedule. MENTAL STATUS EXAMINATION: 42 year old male is alert and oriented 4 preoccupied with his right foot pain and pain medications. Mood is reported as depressed and affect is constricted. thought processes linear thought content is negative for suicidal or homicidal ideation. Denies auditory and visual hallucinations. insight and judgment are limited. ASSESSMENT Major depressive disorder Anxiety disorder Cocaine abuse Nicotine dependence PLAN: Will increase his oxycodone dose from 15mg q 8hrs to 15mg q 6hrs. His oxycodone dose to be tapered off towards his discharge. Continue Cymbalta 60 mg daily for mood/anxiety along with pain. Vistaril 50 mg and doxepin 10mg daily at bedtime for anxiety/insomnia and BuSpar 10 mg twice a day for anxiety. Patient meets criteria for inpatient hospitlaization due to his ongoing symptoms of depression
[2018-12-01] MEDS: DOXEPIN 10 MG CAP PO SCH (20:47)
[2018-12-01] MEDS: hydrOXYzine PAMOATE 25 MG CAP PO SCH (21:04)
[2018-12-01] MEDS: ONDANSETRON 4 MG TAB PO PRN (22:22)
[2018-12-02] MEDS: CLINDAMYCIN 900 MG in DEXTROSE 5% IN WATER 50 ML IVPB SCH ×6 (00:03→16:30)
[2018-12-02] MEDS: busPIRone HCl 10 MG TAB PO SCH ×2 (09:38→22:20)
[2018-12-02] MEDS: ONDANSETRON 4 MG TAB PO PRN ×3 (09:38→22:20)
[2018-12-02] MEDS: NICOTINE 21MG/24HR PATCH TRANSDERM SCH (09:38)
[2018-12-02] MEDS: DULoxetine HCL 60 MG CAPSULE.DR PO SCH (09:38)
[2018-12-02] MEDS: LORazepam 0.5 MG TAB PO PRN ×2 (11:03→20:21)
--- NOTE | 2018-12-02 14:48 | P.PN ---
Progress Note - Text Progress Note Date: 12/02/18 IDENTIFICATION DATA: 42-year-old male admitted to MHU with symptoms of depression and suicidal ideations INTERVAL HISTORY: Patient was seen today, He says his anxiety is getting better and is able to take shower today. Says he was able to go groups and stay focused. He however sa ys he continues to feels down and sick to his stomach. Reports to have taken zofran for nausea yesterday. He denies current suicidal or homicidal ideations. Says he is slowly getting adjusted and is hopeful that he will get better. MENTAL STATUS EXAMINATION: 42 year old male is alert and oriented 4. Mood is reported as down and affect is constricted. thought processes linear thought content is negative for suicidal or homicidal ideation. Denies auditory and visual hallucinations. insight and judgment are improving ASSESSMENT Major depressive disorder Anxiety disorder Cocaine abuse Nicotine dependence PLAN: Continue Cymbalta 60 mg daily for mood/anxiety along with pain. Vistaril 50 mg and doxepin 10mg daily at bedtime for anxiety/insomnia and BuSpar 10 mg twice a day for anxiety. Patient meets criteria for inpatient hospitalization due to his ongoing symptoms of depression
[2018-12-02] MEDS: DOXEPIN 10 MG CAP PO SCH (22:20)
[2018-12-02] MEDS: hydrOXYzine PAMOATE 25 MG CAP PO SCH (22:20)
[2018-12-03] MEDS: CLINDAMYCIN 900 MG in DEXTROSE 5% IN WATER 50 ML IVPB SCH ×6 (00:51→16:34)
[2018-12-03] MEDS: ONDANSETRON 4 MG TAB PO PRN ×2 (06:26→16:34)
[2018-12-03] MEDS: NICOTINE 21MG/24HR PATCH TRANSDERM SCH (07:40)
[2018-12-03] MEDS: DULoxetine HCL 60 MG CAPSULE.DR PO SCH (07:41)
[2018-12-03] MEDS: busPIRone HCl 10 MG TAB PO SCH ×2 (07:41→21:18)
[2018-12-03] MEDS: LORazepam 0.5 MG TAB PO PRN ×2 (10:37→21:19)
--- NOTE | 2018-12-03 12:02 | P.PN ---
Progress Note - Text Progress Note Date: 12/03/18 Interval History: Patient was seen today participating in group and was agreeable to speak to wr adry in the office. He states that he is continuing to feel depressed and some anxiety throughout the day however did state that he is mildly improving. Patient was complaining of ongoing pain over the weekend and asked the covering psychiatrist to split up his oxycodone throughout the day which he claims is now helping him better. Patient states that he was having troubles with his IV antibiotics being given as he claims "the nurse didn't know what she was doing". Patient stated that he slept better last night. Patient states that he has been going to some groups. At this time patient denies any suicidal or homical ideations, intent or plan. Patient denies any auditory, visual hallucinations and denies any paranoia or delusions. Patient denies any side effects from the medications and has been compliant with meds. Mental Status Exam: General Appearance: Patient appears to be older than stated age is alert, directable, and cooperative. Fair hygiene and fair grooming. Behavior: Patient is calmly seated without any agitated behavior. Confrontational today. Speech: Patient's speech is fluent and nonpressured. Mood/Affect: Patient reports their mood is depressed, affect is congruent and constricted. Suicidality/Homicidality: Patient denies having any suicidal or homicidal ideation intent or plan. Perceptions: Patient denies any auditory or visual hallucinations. Though content/process: There is no evidence of any delusional thought content and thought process is linear and goal-directed. Preoccupied with his medications. Memory and concentration: AOX3, grossly intact for the purposes of this session Judgment and insight: Poor, improving mildly Assessment Major depressive disorder Anxiety disorder Cocaine abuse Nicotine dependence Plan: -Patient continues to meet criteria for inpatient psychiatric admission for symptom stabilization and safety. Patient has signed adult voluntary form and medication consent and was placed in patient's chart. -Medications: Will continue with Cymbalta to 60 mg daily for mood/anxiety along with pain and likely increase tomorrow morning. We'll continue with BuSpar 10 mg twice a day for anxiety. Continue with Vistaril 50 mg daily at bedtime for anxiety/insomnia. Continue with doxepin 10 mg daily at bedtime for insomnia/mood. -Patient requested to be put back on oxycodone and is now 15 mg every 6 hours when necessary for pain. This dose will not be increased and patient understands this. -When necessary Ativan for agitation/aggression. -NRT - nicotine patch -SW on board for discharge planning. we'll offer patient substance abuse rehab. Likely discharge in 1-2 days.
[2018-12-03] MEDS: DOXEPIN 10 MG CAP PO SCH (21:18)
[2018-12-03] MEDS: hydrOXYzine PAMOATE 25 MG CAP PO SCH (21:19)
[2018-12-04] MEDS: CLINDAMYCIN 900 MG in DEXTROSE 5% IN WATER 50 ML IVPB SCH ×6 (00:52→15:58)
[2018-12-04] MEDS: ONDANSETRON 4 MG TAB PO PRN ×3 (01:57→17:13)
[2018-12-04] MEDS: DULoxetine HCL 60 MG CAPSULE.DR PO SCH (07:28)
[2018-12-04] MEDS: NICOTINE 21MG/24HR PATCH TRANSDERM SCH (07:28)
[2018-12-04] MEDS: busPIRone HCl 10 MG TAB PO SCH ×2 (07:28→21:13)
[2018-12-04] MEDS: LORazepam 0.5 MG TAB PO PRN ×2 (10:11→21:15)
--- NOTE | 2018-12-04 11:09 | P.PN ---
Progress Note - Text Progress Note Date: 12/04/18 Interval History: Patient was seen today participating in group and was agreeable to speak to lai rider in the office. He states that he is continuing to feel depressed however is claiming that the medications are helping him. At times he states he feels hopeless and anxious however tries to get through the day especially when he is dealing with pain and the need for antibiotics. Patient states that since the pain has been mildly improving she would like to give his foot a rest from walking and requested to be on a wheelchair. Patient states that he is having some nausea after having the antibiotics and requested the Zofran to be changed before each his meals. Patient stated that he slept better last night. Patient states that he has been going to some groups. At this time patient denies any suicidal or homical ideations, intent or plan. Patient denies any auditory, visual hallucinations and denies any paranoia or delusions. Patient denies any side effects from the medications and has been compliant with meds. Mental Status Exam: General Appearance: Patient appears to be older than stated age is alert, directable, and cooperative. Fair hygiene and fair grooming. Poor eye contact. Behavior: Patient is calmly seated without any agitated behavior. Speech: Patient's speech is fluent and nonpressured. Soft tone Mood/Affect: Patient reports their mood is improving mildly, affect is congruent and constricted. Suicidality/Homicidality: Patient denies having any suicidal or homicidal ideation intent or plan. Perceptions: Patient denies any auditory or visual hallucinations. Though content/process: There is no evidence of any delusional thought content and thought process is linear and goal-directed. Preoccupied with his medications. Memory and concentration: AOX3, grossly intact for the purposes of this session Judgment and insight: Poor, improving mildly Assessment Major depressive disorder Anxiety disorder Cocaine abuse Nicotine dependence Plan: -Patient continues to meet criteria for inpatient psychiatric admission for symptom stabilization and safety. Patient has signed adult voluntary form and medication consent and was placed in patient's chart. -Medications: Will increase Cymbalta 90 mg daily for mood/anxiety along with pain. We'll continue with BuSpar 10 mg twice a day for anxiety. Continue with Vistaril 50 mg daily at bedtime for anxiety/insomnia. Continue with doxepin 10 mg daily at bedtime for insomnia/mood. -Oxycodone 15 mg every 6 hours when necessary for pain. This dose will not be increased and patient understands this. -When necessary Ativan for agitation/aggression. -NRT - nicotine patch -SW on board for discharge planning. we'll offer patient substance abuse rehab. Likely discharge in 1-2 days.
[2018-12-04] MEDS: hydrOXYzine PAMOATE 25 MG CAP PO SCH (21:13)
[2018-12-04] MEDS: DOXEPIN 10 MG CAP PO SCH (21:14)
[2018-12-05] MEDS ORDERED: ONDANSETRON ODT 4 MG TAB ONE
[2018-12-05] MEDS: CLINDAMYCIN 900 MG in DEXTROSE 5% IN WATER 50 ML IVPB SCH ×6 (08:30→16:30)
[2018-12-05] MEDS: busPIRone HCl 10 MG TAB PO SCH ×2 (08:41→21:28)
[2018-12-05] MEDS: NICOTINE 21MG/24HR PATCH TRANSDERM SCH (08:41)
[2018-12-05] MEDS: DULoxetine HCL 30 MG CAPSULE.DR PO SCH (08:42)
[2018-12-05] MEDS: ONDANSETRON 4 MG TAB PO PRN ×4 (08:42→22:38)
[2018-12-05] MEDS: LORazepam 0.5 MG TAB PO PRN ×3 (08:45→23:59)
--- NOTE | 2018-12-05 11:55 | P.PN ---
Progress Note - Text Progress Note Date: 12/05/18 Interval History: Patient was seen today laying in bed and was agreeable to speak to marketing writer in the office. He states that he is improving somewhat and claims that his medications are helping him. At times he states he feels hopeless and is worried about his antibiotics and his infection, also worrying about whether or not she'll need to be continued on more treatment or have his leg amputated. Patient states that "I want to lose my leg". Patient claimed that he spoke with his niece who is agreeable to have him stay with her while he is getting his things together and receiving treatment by home health care and is going to talk to the social insurance administrator about it. Patient stated that he slept better last night as he was transferred to another bed/room from his neighbor who was storing too much. Patient states that he has been going to some groups and attempting to participate. At this time patient denies any suicidal or homical ideations, intent or plan. Patient denies any auditory, visual hallucinations and denies any paranoia or delusions. Patient denies any side effects from the medications and has been compliant with meds. Mental Status Exam: General Appearance: Patient appears to be older than stated age is alert, directable, and cooperative. Fair hygiene and fair grooming. Behavior: Patient is calmly seated without any agitated behavior. Speech: Patient's speech is fluent and nonpressured. Soft tone Mood/Affect: Patient reports their mood is improving mildly, affect is congruent and constricted. Suicidality/Homicidality: Patient denies having any suicidal or homicidal ideation intent or plan. Perceptions: Patient denies any auditory or visual hallucinations. Though content/process: There is no evidence of any delusional thought content and thought process is linear and goal-directed. Preoccupied with his medications and the antibiotics that he is on. Memory and concentration: AOX3, grossly intact for the purposes of this session Judgment and insight: Poor, improving mildly Assessment Major depressive disorder Anxiety disorder Cocaine abuse Nicotine dependence Plan: -Patient continues to meet criteria for inpatient psychiatric admission for symptom stabilization and safety. Patient has signed adult voluntary form and medication consent and was placed in patient's chart. -Medications: Will continue with Cymbalta 90 mg daily for mood/anxiety along with pain. We'll continue with BuSpar 10 mg twice a day for anxiety. Continue with Vistaril 50 mg daily at bedtime for anxiety/insomnia. Continue with doxepin 10 mg daily at bedtime for insomnia/mood. -Oxycodone 15 mg every 6 hours when necessary for pain. This dose will not be increased and patient understands this. -When necessary Ativan for agitation/aggression. -NRT - nicotine patch -SW on board for discharge planning. Patient will likely be going to his niece's house in [place] and will be getting home health care for his antibiotic infusions.
[2018-12-05] MEDS: DOXEPIN 10 MG CAP PO SCH (21:28)
[2018-12-05] MEDS: hydrOXYzine PAMOATE 25 MG CAP PO SCH (21:28)
[2018-12-06] MEDS: NICOTINE 21MG/24HR PATCH TRANSDERM SCH (08:39)
[2018-12-06] MEDS: DULoxetine HCL 30 MG CAPSULE.DR PO SCH (08:39)
[2018-12-06] MEDS: busPIRone HCl 10 MG TAB PO SCH ×2 (08:39→22:09)
[2018-12-06] MEDS: LORazepam 0.5 MG TAB PO PRN (08:41)
[2018-12-06] MEDS: ONDANSETRON 4 MG TAB PO PRN ×3 (08:41→17:06)
--- NOTE | 2018-12-06 09:28 | P.PN ---
Progress Note - Text Progress Note Date: 12/06/18 Interval History: Patient was seen today laying in bed as he was receiving his IV antibiotics and was agreeable to speak to journalists and other writers. He states that he is continuing to improve somewhat on his IV medications however states that he was feeling somewhat nauseous yesterday and required to take the Zofran before the infusion. He states that he is feeling more optimistic today and claims that he did try to touch base with his niece in [place] who would be able to allow him to stay with her however he claims that he was not able to get in touch with her and left her message. He admits to mildly improving mood and anxiety. Patient stated that he slept better last night as he in a room to himself. Patient states that he has been going to some groups however is feeling like he is being forced to participate at times. At this time patient denies any suicidal or homical ideations, intent or plan. Patient denies any auditory, visual hallucinations and denies any paranoia or delusions. Patient denies any side effects from the medications and has been compliant with meds. Mental Status Exam: General Appearance: Patient appears to be older than stated age is alert, directable, and cooperative. Fair hygiene and fair grooming. Behavior: Patient is calmly seated without any agitated behavior. Speech: Patient's speech is fluent and nonpressured. Soft tone Mood/Affect: Patient reports their mood is improving mildly, affect is congruent and constricted. Suicidality/Homicidality: Patient denies having any suicidal or homicidal ideation intent or plan. Perceptions: Patient denies any auditory or visual hallucinations. Though content/process: There is no evidence of any delusional thought content and thought process is linear and goal-directed. Memory and concentration: AOX3, grossly intact for the purposes of this session Judgment and insight: Poor, improving mildly Assessment Major depressive disorder Anxiety disorder Cocaine abuse Nicotine dependence Plan: -Patient continues to meet criteria for inpatient psychiatric admission for symptom stabilization and safety. Patient has signed adult voluntary form and medication consent and was placed in patient's chart. -Medications: Will continue with Cymbalta 90 mg daily for mood/anxiety along with pain. We'll continue with BuSpar 10 mg twice a day for anxiety. Continue with Vistaril 50 mg daily at bedtime for anxiety/insomnia. Continue with doxepin 10 mg daily at bedtime for insomnia/mood. -Oxycodone 15 mg every 6 hours when necessary for pain. This dose will not be increased and patient understands this. -When necessary Ativan for agitation/aggression. -NRT - nicotine patch -SW on board for discharge planning. We'll continue on with plan for patient to be discharged to [facility] house in [place] and will be getting home health care for his antibiotic infusions.
[2018-12-06] MEDS: CLINDAMYCIN 900 MG in DEXTROSE 5% IN WATER 50 ML IVPB SCH ×8 (10:00→17:00)
[2018-12-06] MEDS ORDERED: CLINDAMYCIN 900 MG in DEXTROSE 5% IN WATER 50 ML IVPB SCH ×2 (11:00)
[2018-12-06] MEDS: hydrOXYzine PAMOATE 25 MG CAP PO SCH (22:09)
[2018-12-06] MEDS: DOXEPIN 10 MG CAP PO SCH (22:15)
[2018-12-07] MEDS: LORazepam 0.5 MG TAB PO PRN ×3 (00:25→21:24)
[2018-12-07] MEDS: ONDANSETRON 4 MG TAB PO PRN ×3 (00:25→15:58)
[2018-12-07] MEDS: NICOTINE 21MG/24HR PATCH TRANSDERM SCH (08:40)
[2018-12-07] MEDS: DULoxetine HCL 30 MG CAPSULE.DR PO SCH (08:41)
[2018-12-07] MEDS: busPIRone HCl 10 MG TAB PO SCH ×2 (08:41→21:24)
[2018-12-07] MEDS: CLINDAMYCIN 900 MG in DEXTROSE 5% IN WATER 50 ML IVPB SCH ×8 (09:59→23:04)
--- NOTE | 2018-12-07 12:56 | P.PN ---
Progress Note - Text Progress Note Date: 12/07/18 Interval History: Patient was seen today laying in bed after receiving his IV antibiotics and was agreeable to speak to bond underwriter. He states that he is continuing to improve somewhat with regards to his mood and anxiety however patient is complaining of pain today. He states that he is not using his wheelchair as much and claims that he is walking on his feet. Patient asked bond underwriter about increasing the frequency of his medications for pain. He states that he is feeling more optimistic today about getting a call back from his niece as she may be able to take him in upon discharge. He states that he did not sleep well last night however is continuing to attempt to participate in groups as much as he can. At this time patient denies any suicidal or homical ideations, intent or plan. Patient denies any auditory, visual hallucinations and denies any paranoia or delusions. Patient denies any side effects from the medications and has been compliant with meds. Mental Status Exam: General Appearance: Patient appears to be older than stated age is alert, directable, and cooperative. Fair hygiene and fair grooming. Behavior: Patient is calmly seated without any agitated behavior. Somewhat irritable. Speech: Patient's speech is fluent and nonpressured. Soft tone Mood/Affect: Patient reports their mood is improving mildly, affect is congruent and constricted. Suicidality/Homicidality: Patient denies having any suicidal or homicidal ideation intent or plan. Perceptions: Patient denies any auditory or visual hallucinations. Though content/process: There is no evidence of any delusional thought content and thought process is linear and goal-directed. Preoccupied with his medications and pain control. Memory and concentration: AOX3, grossly intact for the purposes of this session Judgment and insight: Poor, improving mildly Assessment Major depressive disorder Anxiety disorder Cocaine abuse Nicotine dependence Plan: -Patient continues to meet criteria for inpatient psychiatric admission for symptom stabilization and safety. Patient has signed adult voluntary form and medication consent and was placed in patient's chart. -Medications: Will continue with Cymbalta 90 mg daily for mood/anxiety along with pain. We'll continue with BuSpar 10 mg twice a day for anxiety. Continue with Vistaril 50 mg daily at bedtime for anxiety/insomnia. Continue with doxepin 10 mg daily at bedtime for insomnia/mood, we'll consider increasing this if patient continues to have sleep problems. -Oxycodone 15 mg every 6 hours when necessary for pain. This dose will not be increased and patient understands this. Patient was encouraged to use his wheelchair more during the day as she was seen walking around the floors. -When necessary Ativan for agitation/aggression. -NRT - nicotine patch -SW on board for discharge planning. We'll continue on with plan for patient to be discharged to [facility] house in [place] and will be getting home health care for his antibiotic infusions. Likely discharge next week.
[2018-12-07] MEDS: hydrOXYzine PAMOATE 25 MG CAP PO SCH (21:24)
[2018-12-07] MEDS: DOXEPIN 10 MG CAP PO SCH (21:26)
[2018-12-08] MEDS: LORazepam 0.5 MG TAB PO PRN ×2 (07:42→20:43)
[2018-12-08] MEDS: ONDANSETRON 4 MG TAB PO PRN ×2 (07:42→16:44)
[2018-12-08] MEDS: NICOTINE 21MG/24HR PATCH TRANSDERM SCH (08:26)
[2018-12-08] MEDS: busPIRone HCl 10 MG TAB PO SCH ×2 (08:26→20:43)
[2018-12-08] MEDS: DULoxetine HCL 30 MG CAPSULE.DR PO SCH (08:26)
--- NOTE | 2018-12-08 09:31 | P.PN ---
Progress Note - Text Progress Note Date: 12/08/18 Interval History: Patient was seen today laying in bed before receiving his IV antibiotics. Izabel dupree was agreeable to speak to verse writer and appeared to have a brighter affect this morning. He states that he is continuing to improve somewhat with regards to his mood and anxiety. He states that his pain is better told today and was able to sleep last night throughout the night. He also states that he started using a wheelchair more than giving his leg a rest. He states that he is continuing to attempt to participate in groups as much as he can. At this time patient denies any suicidal or homical ideations, intent or plan. Patient denies any auditory, visual hallucinations and denies any paranoia or delusions. Patient denies any side effects from the medications and has been compliant with meds. Mental Status Exam: General Appearance: Patient appears to be older than stated age is alert, directable, and cooperative. Fair hygiene and fair grooming. Behavior: Patient is calmly seated without any agitated behavior. Speech: Patient's speech is fluent and nonpressured. Soft tone Mood/Affect: Patient reports their mood is improving mildly, affect is congruent and constricted. Suicidality/Homicidality: Patient denies having any suicidal or homicidal ideation intent or plan. Perceptions: Patient denies any auditory or visual hallucinations. Though content/process: There is no evidence of any delusional thought content and thought process is linear and goal-directed. Memory and concentration: AOX3, grossly intact for the purposes of this session Judgment and insight: Poor, improving mildly Assessment Major depressive disorder Anxiety disorder Cocaine abuse Nicotine dependence Plan: -Patient continues to meet criteria for inpatient psychiatric admission for symptom stabilization and safety. Patient has signed adult voluntary form and medication consent and was placed in patient's chart. -Medications: Will continue with Cymbalta 90 mg daily for mood/anxiety along with pain. We'll continue with BuSpar 10 mg twice a day for anxiety. Continue with Vistaril 50 mg daily at bedtime for anxiety/insomnia. Continue with doxepin 10 mg daily at bedtime for insomnia/mood, we'll consider increasing if needed -Oxycodone 15 mg every 6 hours when necessary for pain. This dose will not be increased and patient understands this. Patient was encouraged to use his wheelchair more during the day as she was seen walking around the floors. -When necessary Ativan for agitation/aggression. -NRT - nicotine patch -SW on board for discharge planning. Plan will be to discharge to [facility] house in [place] and will be getting home health care for his antibiotic infu sions. Likely discharge this coming week.
[2018-12-08] MEDS: CLINDAMYCIN 900 MG in DEXTROSE 5% IN WATER 50 ML IVPB SCH ×6 (10:02→23:13)
[2018-12-08] MEDS: hydrOXYzine PAMOATE 25 MG CAP PO SCH (20:42)
[2018-12-08] MEDS: DOXEPIN 10 MG CAP PO SCH (20:43)
[2018-12-09] MEDS: LORazepam 0.5 MG TAB PO PRN ×2 (06:12→20:45)
[2018-12-09] MEDS: CLINDAMYCIN 900 MG in DEXTROSE 5% IN WATER 50 ML IVPB SCH ×4 (06:49→16:05)
[2018-12-09] MEDS: DULoxetine HCL 30 MG CAPSULE.DR PO SCH ×2 (08:24→08:57)
[2018-12-09] MEDS: busPIRone HCl 10 MG TAB PO SCH ×2 (08:24→20:43)
[2018-12-09] MEDS: NICOTINE 21MG/24HR PATCH TRANSDERM SCH ×2 (08:24→08:57)
[2018-12-09] MEDS: ONDANSETRON 4 MG TAB PO PRN ×2 (08:59→20:47)
--- NOTE | 2018-12-09 10:52 | P.PN ---
Progress Note - Text Progress Note Date: 12/09/18 Interval History: Patient was seen today after receiving his IV antibiotics. Patient was agreeable to speak to flex o writer operator and appeared to be cooperative this morning. Patient claimed that he is taking the medications and doing well with his antibiotics however claims that the morning nurse quickly came in his room and began the antibiotics before he had a chance to eat breakfast and he was upset about that as it causes him nausea. He states that his pain is better told today and was able to sleep last night throughout the night. He also states that he is using a wheelchair more than giving his leg a rest. He states that he is continuing to attempt to participate in groups as much as he can. Patient claims that she will not be going to his niece's house and will be going to his brother's place and case the high school social science teacher the address. At this time patient denies any suicidal or homical ideations, intent or plan. Patient denies any auditory, visual hallucinations and denies any paranoia or delusions. Patient denies any side effects from the medications and has been compliant with meds. Mental Status Exam: General Appearance: Patient appears to be older than stated age is alert, directable, and cooperative. Fair hygiene and fair grooming. Behavior: Patient is calmly seated without any agitated behavior. Speech: Patient's speech is fluent and nonpressured. Soft tone Mood/Affect: Patient reports their mood is improving mildly, affect is congruent and constricted. Suicidality/Homicidality: Patient denies having any suicidal or homicidal ideation intent or plan. Perceptions: Patient denies any auditory or visual hallucinations. Though content/process: There is no evidence of any delusional thought content and thought process is linear and goal-directed. Memory and concentration: AOX3, grossly intact for the purposes of this session Judgment and insight: Fair, improving mildly Assessment Major depressive disorder Anxiety disorder Cocaine abuse Nicotine dependence Plan: -Patient continues to meet criteria for inpatient psychiatric admission for symptom stabilization and safety. Patient has signed adult voluntary form and medication consent and was placed in patient's chart. -Medications: Will continue with Cymbalta 90 mg daily for mood/anxiety along w ith pain. We'll continue with BuSpar 10 mg twice a day for anxiety. Continue with Vistaril 50 mg daily at bedtime for anxiety/insomnia. Continue with doxepin 10 mg daily at bedtime for insomnia/mood. -Oxycodone 15 mg every 6 hours when necessary for pain. This dose will not be increased and patient understands this. Patient was encouraged to use his wheelchair more during the day. -When necessary Ativan for agitation/aggression. -NRT - nicotine patch -SW on board for discharge planning. Plan will be to discharge to his brother's house and will be getting home health care for his antibiotic infusions. Likely discharge in 1-2 days.
[2018-12-09] MEDS: hydrOXYzine PAMOATE 25 MG CAP PO SCH (20:43)
[2018-12-09] MEDS: DOXEPIN 10 MG CAP PO SCH (20:44)
[2018-12-10] MEDS: CLINDAMYCIN 900 MG in DEXTROSE 5% IN WATER 50 ML IVPB SCH ×6 (01:14→16:00)
[2018-12-10] MEDS: LORazepam 0.5 MG TAB PO PRN ×3 (04:49→22:40)
[2018-12-10] MEDS: NICOTINE 21MG/24HR PATCH TRANSDERM SCH (08:28)
[2018-12-10] MEDS: DULoxetine HCL 30 MG CAPSULE.DR PO SCH (08:28)
[2018-12-10] MEDS: busPIRone HCl 10 MG TAB PO SCH ×2 (08:28→20:35)
--- NOTE | 2018-12-10 11:24 | P.PN ---
Progress Note - Text Progress Note Date: 12/10/18 Interval History: Patient was seen today after receiving his IV antibiotics and was agreeable to speak to creative services writer in his room. Patient appeared to be calmer today and stated that he is in a better mood than yesterday and was apologetic to creative services writer. He states that He states that his pain is better told today and was able to sleep last night throughout the night. He also states that he is using a wheelchair more than giving his leg a rest. He states that he is continuing to attempt to participate in groups as much as he can. Patient claims that she will not be going to his niece's house and will be going to his brother's place and case the geriatric social work professor the address. At this time patient denies any suicidal or homical ideations, intent or plan. Patient denies any auditory, visual hallucinations and denies any paranoia or delusions. Patient denies any side effects from the medications and has been compliant with meds. Mental Status Exam: General Appearance: Patient appears to be older than stated age is alert, directable. Fair hygiene and fair grooming. Behavior: Patient is calmly seated without any agitated behavior. Speech: Patient's speech is fluent and nonpressured. Soft tone Mood/Affect: Patient reports their mood is improving mildly, affect is congruent and constricted. Suicidality/Homicidality: Patient denies having any suicidal or homicidal ideation intent or plan. Perceptions: Patient denies any auditory or visual hallucinations. Though content/process: There is no evidence of any delusional thought content and thought process is linear and goal-directed. Preoccupied with medications. Memory and concentration: AOX3, grossly intact for the purposes of this session Judgment and insight: Fair, improving mildly Assessment Major depressive disorder Anxiety disorder Cocaine abuse Nicotine dependence Plan: -Patient continues to meet criteria for inpatient psychiatric admission for symptom stabilization and safety. Patient has signed adult voluntary form and medication consent and was placed in patient's chart. -Medications: Will continue with Cymbalta 90 mg daily for mood/anxiety along with pain. We'll continue with BuSpar 10 mg twice a day for anxiety. Continue with Vistaril 50 mg daily at bedtime for anxiety/insomnia. Continue with doxep in 10 mg daily at bedtime for insomnia/mood. -Zofran PRN increased to 8 mg 3 times a day for nausea before antibiotics. -Oxycodone 15 mg every 6 hours when necessary for pain. This dose will not be in creased and patient understands this. Patient was encouraged to use his wheelchair more during the day. Patient stated that his pain is improving throughout the day. -When necessary Ativan for agitation/aggression. -NRT - nicotine patch -Will attempt to request a new boot for patient's foot prior to discharge. -SW on board for discharge planning. Plan will be to discharge to his brother's house and will be getting home health care for his antibiotic infusions. Likely discharge tomorrow.
[2018-12-10] MEDS: ONDANSETRON ODT 8 MG TAB.RAPDIS PO PRN ×2 (12:43→18:09)
[2018-12-10] MEDS: hydrOXYzine PAMOATE 25 MG CAP PO SCH (20:35)
--- NOTE | 2018-12-10 20:58 | P.PN ---
Progress Note - Text Progress Note Date: 12/10/18 Hospitalist Interval Note Patient seen and examined at bedside. He complains of blood in the tubing of his PICC line after his latest heparin flush. He denies any chest pain or shortness of breath. No diarrhea or abdominal pain. He states his foot pain is unchanged. He has plans to follow-up with his surgeon on December 30, and he completes his antibiotics he believes on December 25. He is to be active with [facility] which she has had in the past. 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 Good approximation of skin. Retention sutures in place. Head: atraumatic, normocephalic, symmetric Eyes: EOMI, no lid lag, anicteric sclera Mouth: no lip lesion, mucus membranes moist Cardiovascular: S1S2 reg, no murmur, positive posterior tibial pulse bilateral, Lungs: CTA bilateral, no rhonchi, no rales , no accessory muscle use Abdominal: soft, nontender to palpation, no guarding, no appreciable organo megaly Ext: no gross muscle atrophy, no edema, no contractures Neuro: CN II-XI grossly intact, no focal neuro deficits Psych: Alert, oriented, appropriate affect Assessment/Plan: 1. Osteomyelitis -Continue with cefazolin and clindamycin. Patient states he is due to complete his antibiotics on 12/25 and follow-up with his surgeon on 12/30. We will check CBC and CMP prior to discharge. Patient was having some blood inside tubing of PICC line. Asked nursing to flush it again. Bleeding seems to have stopped. -Asked nursing to verify that he has an active order for IV antibiotics with [facility] prior to discharge tomorrow. If he does not we will need to get a copy of the old order from his surgeon. This is who should manage his outpatient IV antibiotics. 2. Transaminitis -Undetermined etiology, repeat CMP in a.m. If remains elevated will need to ensure follow-up with Dr. Elam his PCP.
[2018-12-10] MEDS: DOXEPIN 10 MG CAP PO SCH (21:30)
[2018-12-10 21:37] LABS: HCT 37.2 % (39.0-53.0); HGB 11.9 gm/dL (13.0-17.5); Hypochromasia Slight; MCH 28.3 pg (25.0-35.0); MCHC 32.1 g/dL (31.0-37.0); Mean Platelet Volume 5.7; Platelet Count 229 k/uL (150-450); RBC 4.23 m/uL (4.30-5.90); RDW 14.6 % (11.5-15.5)
[2018-12-10 21:47] LABS: ALT 31 U/L (21-72); AST 39 U/L (17-59); African American GFR (CKD) >90 (>60 ml/min/1.73 sqM); Alkaline Phosphatase 133 U/L (38-126); Anion Gap 11 mmol/L; Blood Urea Nitrogen 19 mg/dL (9-20); Calcium 9.3 mg/dL (8.4-10.2); Carbon Dioxide 30 mmol/L (22-30); Chloride 98 mmol/L (98-107); Glucose 99 mg/dL (74-99); Potassium 4.5 mmol/L (3.5-5.1); Sodium 139 mmol/L (137-145); Total Bilirubin 0.2 mg/dL (0.2-1.3); Total Protein 7.9 g/dL (6.3-8.2)
[2018-12-10] MEDS: ACETAMINOPHEN TAB 325 MG TAB PO PRN (22:40)
[2018-12-11] MEDS: CLINDAMYCIN 900 MG in DEXTROSE 5% IN WATER 50 ML IVPB SCH ×8 (09:19→23:51)
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
[2018-12-11] MEDS: NICOTINE 21MG/24HR PATCH TRANSDERM SCH (09:20)
[2018-12-11] MEDS: DULoxetine HCL 30 MG CAPSULE.DR PO SCH (09:20)
[2018-12-11] MEDS: LORazepam 0.5 MG TAB PO PRN ×2 (09:22→21:47)
[2018-12-11 10:52] VITALS: BMI 23.3
[2018-12-11] MEDS: busPIRone HCl 10 MG TAB PO SCH ×2 (12:26→21:44)
[2018-12-11] MEDS: ONDANSETRON ODT 8 MG TAB.RAPDIS PO PRN ×3 (19:27→23:54)
[2018-12-11] MEDS: DOXEPIN 10 MG CAP PO SCH (21:44)
[2018-12-11] MEDS: hydrOXYzine PAMOATE 25 MG CAP PO SCH (21:45)
--- NOTE | 2018-12-11 23:37 | P.CONS ---
History of Present Illness - Reason for Consult Consult date: 12/11/18 - Chief Complaint Depression - History of Present Illness 42-year-old male, who has a history of service in the [employer] but is not eligible for VA benefits, was admitted to an outside hospital earlier this year. At that point in time he suffered gangrene to his right foot and over time resulted in the transmetatarsal amputation to the foot. Approximately 1 months ago he was hospitalized at [facility] reviewed further surgical debridement of the first metatarsal. Date reveals that he was discharged on Ancef 1 g IV push every 8 hours with clindamycin 900 mg every 8 hours also. December 25 is approximately 10 date. The patient presented to our facility with suicidal ideation. He has a history of polysubstance abuse and was actively using cocaine and causes significant worsening of his mood. He is now considerably improved on the new regiment as prescribed by psychiatry. The patient is informed to leaving hospital and went to live with his brother in [place]. However it became evident that the arrangements for the antibiotic therapy in the home setting were not completed and consult was requested. The patient does feel better as far as his mood. He has not had any fevers chills or rigors or sweats. The foot itself is still slightly painful but this is improved also. Review of Systems HEENT:Denies headache or acute visual change. Denies sinus or mouth discomforts. Denies neck stiffness or pain. Denies significant oral cavity pain. Denies difficulty on swallowing. Lungs: Denies significant shortness of breath, cough, sputum production, or hemoptysis. Cardiovascular: Denies significant shortness of breath, chest pain, chest wall pain, orthopnea, dyspnea on exertion, syncope Gastrointestinal:Denies nausea, vomiting, diarrhea, constipation, hematemesis, melena, hematochezia. No no significant change of bowel habit noticed. Musculoskeletal: Some pain to the right foot at the transmetatarsal amputation site. Skin: Denies new rash or lesions. No new ulcers or wounds are related.. Neuro: Denies headache or visual change. Denies any new onset weakness or difficulty with ambulation. Denies falls or seizures. Psychiatric:Denies anxiety or depression. Endocrine: Denies significant fatigue, denies significant weight loss or weight gain. Past Medical History Past Medical History: No Reported History Additional Past Medical History / Comment(s): R foot all 5 toe amputations d/t frostbite, post surgery R foot infection/septic/osteomylitis, chronic R foot pain. History of Any Multi-Drug Resistant Organisms: None Reported Past Surgical History: No Surgical Hx Reported Additional Past Surgical History / Comment(s): RIGHT FOOT- ALL 5 TOES AMPUTATION, recent surgery for septic R foot, picc lines. Past Anesthesia/Blood Transfusion Reactions: No Reported Reaction Past Psychological History: Anxiety, Depression Additional Psychological History / Comment(s): Has a history of polysubstance abuse. Cocaine actively being used at admission. Dishonorable discharge from the [employer], not eligible for VA benefits. No travel since days, he relates he was in [place]. Active tobacco smoker this is related to heavy alcohol use. He is single. Homeless. Will be going to live with his brother. No animal exposures Smoking Status: Current every day smoker Past Alcohol Use History: None Reported, Occasional Past Drug Use History: None Reported - Past Family History Mother Additional Family Medical History / Comment(s): Mother of pulmonary fibrosis at the age of 69yrs. She was a lung transplant recipient. Father Family Medical History: COPD Additional Family Medical History / Comment(s): Father is an ex smoker. Medications and Allergies Home Medications and Allergies Comment(s): Current Medications Acetaminophen (Tylenol Tab) 650 mg PO Q4HR PRN PRN Reason: Pain/Discomfort Last Admin: 12/10/18 22:40 Dose: 650 mg Documented by: Al Hydroxide/Mg Hydroxide (Maalox) 30 ml PO Q4HR PRN PRN Reason: GI Upset Last Admin: 12/05/18 13:33 Dose: 30 ml Documented by: Buspirone HCl (Buspar) 10 mg PO BID PENDING SALE TO [facility] Last Admin: 12/11/18 21:44 Dose: 10 mg Documented by: Doxepin HCl (Sinequan) 10 mg PO HS PENDING SALE TO [facility] Last Admin: 12/11/18 21:44 Dose: 10 mg Documented by: Duloxetine HCl (Cymbalta) 90 mg PO DAILY PENDING SALE TO [facility] Last Admin: 12/11/18 09:20 Dose: 90 mg Documented by: Heparin Sodium (Beef Lung) (Heparin Lock 500 Unit/5 Ml (100 Unit/Ml)) 500 unit IV Q8HR PENDING SALE TO [facility] Last Admin: 12/11/18 19:02 Dose: 500 unit Documented by: Hydroxyzine Pamoate (Vistaril) 50 mg PO HS PENDING SALE TO [facility] Last Admin: 12/11/18 21:45 Dose: 50 mg Documented by: Cefazolin Sodium 2 gm/ Sodium (Chloride) 50 mls @ 100 mls/hr IVPB Q8HR PENDING SALE TO [facility] Last Admin: 12/11/18 18:25 Dose: 100 mls/hr Documented by: Clindamycin Phosphate 900 mg/ (Dextrose/Water) 56 mls @ 50 mls/hr IVPB Q8HR PENDING SALE TO [facility] Last Admin: 12/11/18 17:03 Dose: 50 mls/hr Documented by: Lorazepam (Ativan) 0.5 mg PO TID PRN PRN Reason: Anxiety Last Admin: 12/11/18 21:47 Dose: 0.5 mg Documented by: Magnesium Hydroxide (Milk Of Magnesia) 2,400 mg PO DAILY PRN PRN Reason: Constipation Nicotine (Habitrol 21mg/24hr Patch) 1 patch TRANSDERM DAILY PENDING SALE TO [facility] Last Admin: 12/11/18 09:20 Dose: 1 patch Documented by: Ondansetron HCl (Zofran Odt) 8 mg PO AC-TID PRN PRN Reason: Nausea And Vomiting Last Admin: 12/11/18 19:27 Dose: 8 mg Documented by: Oxycodone HCl (Oxyir) 15 mg PO Q6H PRN PRN Reason: Pain Last Admin: 12/11/18 22:17 Dose: 15 mg Documented by: Ziprasidone (Geodon) 20 mg IM BID PRN PRN Reason: Agitation or Acute Psychosis Home Medications Medication Instructions Recorded Confirmed Type Acetaminophen Tab [Tylenol] 650 mg PO Q4HR PRN tab 12/11/18 Rx DULoxetine HCL [Cymbalta] 90 mg PO DAILY 28 Days capsule.dr 12/11/18 Rx Doxepin [SINEquan] 10 mg PO HS 28 Days cap 12/11/18 Rx Nicotine 21Mg/24Hr Patch [Habitrol] 1 patch TRANSDERM DAILY 14 Days 12/11/18 Rx patch Ondansetron Odt [Zofran ODT] 8 mg PO AC-TID PRN 14 Days 12/11/18 Rx tab.rapdis hydrOXYzine PAMOATE [Vistaril] 50 mg PO HS 28 Days capsule 12/11/18 Rx oxyCODONE HCL [oxyCODONE HCL (IR)] 20 mg PO Q6H PRN 3 Days #12 tab 12/11/18 Rx Allergies Allergy/AdvReac Type Severity Reaction Status Date / Time No Known Allergies Allergy Verified 11/28/18 11:48 Physical Exam Vitals: Vital Signs Temp Pulse Resp BP 12/11/18 09:57 98.7 F 12/11/18 04:57 98.6 F 107 H 13 115/64 Intake and Output 12/11/18 12/11/18 12/12/18 14:59 22:59 06:59 Intake Total 50 Balance 50 Intake: IV 50 Invasive Line 1 50 Other: Weight 71.9 kg Patient relates he's had a fever however staff does not document any fevers Thin but muscular 42-year-old male not in distress multiple tattoos, has a goatee that is graying. HEENT: Anicteric conjunctiva are pink and moist nasal mucosa grossly intact without significant lesions, there is no thrush. Neck: The neck is supple without significant lymphadenopathy or thyromegaly. Lungs: Good bilateral air entry without significant crackles or wheezing. There is no significant bronchial sounds. There is no egophony or dullness. Heart: Regular rate and rhythm with an audible S1-S2, no S3 no S4. There is no significant murmur click or rub, PMI was nondisplaced. Abdomen: Positive bowel sounds soft and nontender without palpable masses or organomegaly. There was no guarding or rebound. Extremities: The upper extremities have excellent pulses they are symmetric, no significant petechiae or telangiectasia. No splinter hemorrhages were noted. The PICC line left time is functioning well there is no cap in place. The transverse metatarsal amputation site right foot shows evidence of some residual sutures at the first metatarsal area. There is no expressible purulence or drainage. Erythema has resolved. He does complain of some tenderness with manipulation of the site. But easily ambulates to the bathroom. Neuro: Awake alert oriented to person place and time. There are no acute new gross focal sensory motor deficits. Results CBC & Chem 7: 12/10/18 21:19 12/10/18 21:19 Labs: Laboratory Results WBC 7.0 k/uL (3.8-10.6) 12/10/18 21:19 RBC 4.23 m/uL (4.30-5.90) L 12/10/18 21:19 Hgb 11.9 gm/dL (13.0-17.5) L 12/10/18 21: Hct 37.2 % (39.0-53.0) L 12/10/18 21: MCV 88.0 fL (80.0-100.0) 12/10/18 21: MCH 28.3 pg (25.0-35.0) 12/10/18 21: MCHC 32.1 g/dL (31.0-37.0) 12/10/18 21: RDW 14.6 % (11.5-15.5) 12/10/18 21: Plt Count 229 k/uL (150-450) 12/10/18 21: Neutrophils % 79 % 11/28/18 13:23 Lymphocytes % 15 % 11/28/18 13:23 Monocytes % 3 % 11/28/18 13:23 Eosinophils % 2 % 11/28/18 13:23 Basophils % 1 % 11/28/18 13:23 Neutrophils # 4.1 k/uL (1.3-7.7) 11/28/18 13:23 Lymphocytes # 0.8 k/uL (1.0-4.8) L 11/28/18 13:23 Monocytes # 0.1 k/uL (0-1.0) 11/28/18 13:23 Eosinophils # 0.1 k/uL (0-0.7) 11/28/18 13:23 Basophils # 0.1 k/uL (0-0.2) 11/28/18 13:23 Hypochromasia Slight 12/10/18 21:19 Sodium 139 mmol/L (137-145) 12/10/18 21:19 Potassium 4.5 mmol/L (3.5-5.1) 12/10/18 21:19 Chloride 98 mmol/L (98-107) 12/10/18 21:19 Carbon Dioxide 30 mmol/L (22-30) 12/10/18 21:19 Anion Gap 11 mmol/L 12/10/18 21: BUN 19 mg/dL (9-20) 12/10/18 21: Creatinine 1.04 mg/dL (0.66-1.25) 12/10/18 21:19 Est GFR (CKD-EPI)AfAm >90 (>60 ml/min/1.73 sqM) 12/10/18 21:19 Est GFR (CKD-EPI)NonAf 89 (>60 ml/min/1.73 sqM) 12/10/18 21:19 Glucose 99 mg/dL (74-99) 12/10/18 21:[address] Glu mg/dL 111 11/29/18 08:15 Hemoglobin A1c 5.5 % (4.0-6.0) 11/29/18 08:15 Calcium 9.3 mg/dL (8.4-10.2) 12/10/18 21:19 Total Bilirubin 0.2 mg/dL (0.2-1.3) 12/10/18 21:19 AST 39 U/L (17-59) 12/10/18 21:19 ALT 31 U/L (21-72) 12/10/18 21:19 Alkaline Phosphatase 133 U/L (38-126) H 12/10/18 21:19 Total Protein 7.9 g/dL (6.3-8.2) 12/10/18 21:19 Albumin 4.0 g/dL (3.5-5.0) 12/10/18 21:19 Triglycerides 75 mg/dL (<150) 11/29/18 08:15 Cholesterol 169 mg/dL (<200) 11/29/18 08:15 LDL Cholesterol, Calc 121 mg/dL (0-99) H 11/29/18 08:15 HDL Cholesterol 33 mg/dL (40-60) L 11/29/18 08:15 TSH 0.468 mIU/L (0.465-4.680) 11/29/18 08:15 Urine Color Yellow 11/28/18 11:53 Urine Appearance Cloudy (Clear) 11/28/18 11:53 Urine pH 6.0 (5.0-8.0) 11/28/18 11:53 Ur Specific [place] 1.026 (1.001-1.035) 11/28/18 11:53 Urine Protein 1+ (Negative) H 11/28/18 11:53 Urine Glucose (UA) 3+ (Negative) H 11/28/18 11:53 Urine Ketones 1+ (Negative) H 11/28/18 11:53 Urine Blood Negative (Negative) 11/28/18 11:53 Urine Nitrite Negative (Negative) 11/28/18 11:53 Urine Bilirubin Negative (Negative) 11/28/18 11:53 Urine Urobilinogen 2.0 mg/dL (<2.0) 11/28/18 11:53 Ur Leukocyte Esterase Negative (Negative) 11/28/18 11:53 Urine WBC 5 /hpf (0-5) 11/28/18 11:53 Ur Squamous Epith Cells 1 /hpf (0-4) 11/28/18 11:53 Amorphous Sediment Occasional /hpf (None) H 11/28/18 11:53 Urine Mucus Many /hpf (None) H 11/28/18 11:53 Urine Opiates Screen Not Detected (NotDetected) 11/28/18 11:53 Ur Oxycodone Screen Not Detected (NotDetected) 11/28/18 11:53 Urine Methadone Screen Not Detected (NotDetected) 11/28/18 11:53 Ur Propoxyphene Screen Not Detected (NotDetected) 11/28/18 11:53 Ur Barbiturates Screen Not Detected (NotDetected) 11/28/18 11:53 U Tricyclic Antidepress Not Detected (NotDetected) 11/28/18 11:53 Ur Phencyclidine Scrn Not Detected (NotDetected) 11/28/18 11:53 Ur Amphetamines Screen Not Detected (NotDetected) 11/28/18 11:53 U Methamphetamines Scrn Not Detected (NotDetected) 11/28/18 11:53 U Benzodiazepines Scrn Detected (NotDetected) H 11/28/18 11:53 Urine Cocaine Screen Detected (NotDetected) H 11/28/18 11:53 U Marijuana (THC) Screen Not Detected (NotDetected) 11/28/18 11:53 Assessment and Plan (1) Status post transmetatarsal amputation of right foot Narrative/Plan: 42-year-old male with multiple medical problems that includes his presentation with suicidal ideation and polysubstance abuse with cocaine being utilized. The patient is no significant improvement since his stay in the psychiatric unit. His medication changes have occurred and he does relate is feeling better and looks forward to going to live with his brother at least for the next short period of time. We have asked the nursing staff to contact his prior hospital to first obtain cultures to ensure that his antibiotic therapy is appropriate and determine if a more simple regiment is possible within the 6 bag sedated he is currently doing. There is a very complex regimen for a person that he has significant depressive disorder. Secondly were asking for the surgical notes to see what exactly the surgeon did and is a possible for the current sutures to be removed if the procedure does not require them to be in for any protracted period of time. If he will be available to us in this community for follow-up we will then be able to provide him outpatient intravenous antibiotic therapy. Would also be able to provide him wound care at the Center hopefully have him fit for specialty footgear given a transmetatarsal amputation. Current Visit: Yes Status: Acute Code(s): Z89.431 - SNOMED Code(s): 03949558107349859 (2) Cocaine abuse Current Visit: Yes Status: Acute Priority: Medium Code(s): F14.10 - COCAINE ABUSE, UNCOMPLICATED SNOMED Code(s): 58081846 (3) Major depressive disorder Current Visit: Yes Status: Acute Priority: High Code(s): F32.9 - MAJOR DEPRESSIVE DISORDER, SINGLE EPISODE, UNSPECIFIED SNOMED Code(s): 854901154 (4) Nicotine dependence Current Visit: Yes Status: Acute Priority: Low Code(s): F17.200 - NICOTINE DEPENDENCE, UNSPECIFIED, UNCOMPLICATED SNOMED Code(s): 44934735
[2018-12-12 06:51] VITALS: RESP 16
[2018-12-12] MEDS: NICOTINE 21MG/24HR PATCH TRANSDERM SCH (08:21)
[2018-12-12] MEDS: busPIRone HCl 10 MG TAB PO SCH ×2 (08:22→20:56)
[2018-12-12] MEDS: DULoxetine HCL 30 MG CAPSULE.DR PO SCH (08:22)
[2018-12-12] MEDS: CLINDAMYCIN 900 MG in DEXTROSE 5% IN WATER 50 ML IVPB SCH ×4 (09:02→17:09)
[2018-12-12] MEDS: LORazepam 0.5 MG TAB PO PRN (09:07)
[2018-12-12] MEDS: ACETAMINOPHEN TAB 325 MG TAB PO PRN (13:28)
[2018-12-12] MEDS: ONDANSETRON ODT 8 MG TAB.RAPDIS PO PRN (14:00)
--- NOTE | 2018-12-12 14:16 | P.PN ---
Progress Note - Text Progress Note Date: 12/12/18 Interval History: Patient was seen today while he was receiving his IV antibiotics and was agree able to speak to typewriter tester in his room. Patient appeared to be calm today and stated that he is in a good mood today. She states that he spoke with the infectious disease doctor who is attempting to find out more about his antibiotics and also that he would like to follow up with him in the clinic instead of going to [place]. He states that He states that his pain is better today and was able to sleep last night throughout the night. He states that he was excited to leave yesterday however did not have the antibiotics sorted out prior to discharge and was willing to stay because of it. He states that he is continuing to attempt to participate in groups as much as he can. He claims that he still wants to go to his brother's house in [place]. At this time patient denies any suicidal or homical ideations, intent or plan. Patient denies any auditory, visual hallucinations and denies any paranoia or delusions. Patient denies any side effects from the medications and has been compliant with meds. Mental Status Exam: General Appearance: Patient appears to be older than stated age is alert, directable. Fair hygiene and fair grooming. Behavior: Patient is calmly seated without any agitated behavior. Speech: Patient's speech is fluent and nonpressured. Soft tone Mood/Affect: Patient reports their mood is improving mildly, affect is congruent and constricted. Suicidality/Homicidality: Patient denies having any suicidal or homicidal ideation intent or plan. Perceptions: Patient denies any auditory or visual hallucinations. Though content/process: There is no evidence of any delusional thought content and thought process is linear and goal-directed. Preoccupied with medications. Memory and concentration: AOX3, grossly intact for the purposes of this session Judgment and insight: Fair, improving mildly Assessment Major depressive disorder Anxiety disorder Cocaine abuse Nicotine dependence Plan: -Patient continues to meet criteria for inpatient psychiatric admission for symptom stabilization and safety. Patient has signed adult voluntary form and medication consent and was placed in patient's chart. -Medications: Will continue with Cymbalta 90 mg daily for mood/anxiety along with pain. We'll continue with BuSpar 10 mg twice a day for anxiety. Continue with Vistaril 50 mg daily at bedtime for anxiety/insomnia. Continue with doxepin 10 mg daily at bedtime for insomnia/mood. -Zofran PRN 8 mg 3 times a day for nausea before antibiotics. -Oxycodone 15 mg every 6 hours when necessary for pain. This dose will not be increased and patient understands this. Patient was encouraged to use his wheelchair more during the day. Patient stated that his pain is improving throughout the day. -When necessary Ativan for agitation/aggression. -NRT - nicotine patch -SW on board for discharge planning. Plan will be to discharge to his brother's house. Likely discharge when appropriate follow-up and plan is in place for patient antibiotics.
[2018-12-12] MEDS ORDERED: IBUPROFEN 600 MG TAB PO STA (19:27)
--- NOTE | 2018-12-12 19:35 | P.PN ---
Subjective Progress Note Date: 12/12/18 42-year-old male, who has a history of service in the [employer] but is not eligible for VA benefits, was admitted to an outside hospital earlier this year. At that point in time he suffered gangrene to his right foot and over time resulted in the transmetatarsal amputation to the foot. Approximately 1 months ago he was hospitalized at [facility] reviewed further surgical debridement of the first metatarsal. Date reveals that he was discharged on Ancef 1 g IV push every 8 hours with clindamycin 900 mg every 8 hours also. December 25 is approximately 10 date. The patient presented to our facility with suicidal ideation. He has a history of polysubstance abuse and was actively using cocaine and causes significant worsening of his mood. He is now considerably improved on the new regiment as prescribed by psychiatry. The patient is informed to leaving hospital and went to live with his brother in [place]. However it became evident that the arrangements for the antibiotic therapy in the home setting were not completed and consult was requested. The patient does feel better as far as his mood. He has not had any fevers chills or rigors or sweats. The foot itself is still slightly painful but this is improved also. 12/12/2018 improved but feels slight chill, no fever but 99 noted. PICC site intact Objective - Vital Signs Vital signs: Vital Signs Temp 98.6 F 12/12/18 14:01 Pulse 91 12/12/18 06:20 Resp 16 12/12/18 06:20 BP 113/54 12/12/18 06:20 Pulse Ox 96 11/29/18 01:35 - Exam Patient relates he's had a fever however staff does not document any fevers 99 today so GI symptoms with ABX infusion Thin but muscular 42-year-old male not in distress multiple tattoos, has a goatee that is graying. HEENT: Anicteric conjunctiva are pink and moist nasal mucosa grossly intact without significant lesions, there is no thrush. Neck: The neck is supple without significant lymphadenopathy or thyromegaly. Lungs: Good bilateral air entry without significant crackles or wheezing. There is no significant bronchial sounds. There is no egophony or dullness. Heart: Regular rate and rhythm with an audible S1-S2, no S3 no S4. There is no significant murmur click or rub, PMI was nondisplaced. Abdomen: Positive bowel sounds soft and nontender without palpable masses or organomegaly. There was no guarding or rebound. Extremities: The upper extremities have excellent pulses they are symmetric, no significant petechiae or telangiectasia. No splinter hemorrhages were noted. The PICC line left time is functioning well there is no cap in place. The transverse metatarsal amputation site right foot shows evidence of some residual sutures at the first metatarsal area. There is no expressible purulence or drainage. Erythema has resolved. He does complain of some tenderness with manipulation of the site. But easily ambulates to the bathroom. Neuro: Awake alert oriented to person place and time. There are no acute new gross focal sensory motor deficits. - Labs CBC & Chem 7: 12/10/18 21:19 12/10/18 21: Labs: Laboratory Results WBC 7.0 k/uL (3.8-10.6) 12/10/18 21: RBC 4.23 m/uL (4.30-5.90) L 12/10/18 21: Hgb 11.9 gm/dL (13.0-17.5) L 12/10/18 21: Hct 37.2 % (39.0-53.0) L 12/10/18 21: MCV 88.0 fL (80.0-100.0) 12/10/18 21: MCH 28.3 pg (25.0-35.0) 12/10/18 21: MCHC 32.1 g/dL (31.0-37.0) 12/10/18 21: RDW 14.6 % (11.5-15.5) 12/10/18 21: Plt Count 229 k/uL (150-450) 12/10/18 21: Neutrophils % 79 % 11/28/18 13:23 Lymphocytes % 15 % 11/28/18 13:23 Monocytes % 3 % 11/28/18 13:23 Eosinophils % 2 % 11/28/18 13:23 Basophils % 1 % 11/28/18 13:23 Neutrophils # 4.1 k/uL (1.3-7.7) 11/28/18 13:23 Lymphocytes # 0.8 k/uL (1.0-4.8) L 11/28/18 13:23 Monocytes # 0.1 k/uL (0-1.0) 11/28/18 13:23 Eosinophils # 0.1 k/uL (0-0.7) 11/28/18 13:23 Basophils # 0.1 k/uL (0-0.2) 11/28/18 13:23 Hypochromasia Slight 12/10/18 21:19 Sodium 139 mmol/L (137-145) 12/10/18 21:19 Potassium 4.5 mmol/L (3.5-5.1) 12/10/18 21:19 Chloride 98 mmol/L (98-107) 12/10/18 21:19 Carbon Dioxide 30 mmol/L (22-30) 12/10/18 21:19 Anion Gap 11 mmol/L 12/10/18 21:19 BUN 19 mg/dL (9-20) 12/10/18 21:19 Creatinine 1.04 mg/dL (0.66-1.25) 12/10/18 21:19 Est GFR (CKD-EPI)AfAm >90 (>60 ml/min/1.73 sqM) 12/10/18 21:19 Est GFR (CKD-EPI)NonAf 89 (>60 ml/min/1.73 sqM) 12/10/18 21:19 Glucose 99 mg/dL (74-99) 12/10/18 21:[address] Glu mg/dL 111 11/29/18 08:15 Hemoglobin A1c 5.5 % (4.0-6.0) 11/29/18 08:15 Calcium 9.3 mg/dL (8.4-10.2) 12/10/18 21:19 Total Bilirubin 0.2 mg/dL (0.2-1.3) 12/10/18 21:19 AST 39 U/L (17-59) 12/10/18 21:19 ALT 31 U/L (21-72) 12/10/18 21:19 Alkaline Phosphatase 133 U/L (38-126) H 12/10/18 21:19 Total Protein 7.9 g/dL (6.3-8.2) 12/10/18 21:19 Albumin 4.0 g/dL (3.5-5.0) 12/10/18 21:19 Triglycerides 75 mg/dL (<150) 11/29/18 08:15 Cholesterol 169 mg/dL (<200) 11/29/18 08:15 LDL Cholesterol, Calc 121 mg/dL (0-99) H 11/29/18 08:15 HDL Cholesterol 33 mg/dL (40-60) L 11/29/18 08:15 TSH 0.468 mIU/L (0.465-4.680) 11/29/18 08:15 Urine Color Yellow 11/28/18 11:53 Urine Appearance Cloudy (Clear) 11/28/18 11:53 Urine pH 6.0 (5.0-8.0) 11/28/18 11:53 Ur Specific [place] 1.026 (1.001-1.035) 11/28/18 11:53 Urine Protein 1+ (Negative) H 11/28/18 11:53 Urine Glucose (UA) 3+ (Negative) H 11/28/18 11:53 Urine Ketones 1+ (Negative) H 11/28/18 11:53 Urine Blood Negative (Negative) 11/28/18 11:53 Urine Nitrite Negative (Negative) 11/28/18 11:53 Urine Bilirubin Negative (Negative) 11/28/18 11:53 Urine Urobilinogen 2.0 mg/dL (<2.0) 11/28/18 11:53 Ur Leukocyte Esterase Negative (Negative) 11/28/18 11:53 Urine WBC 5 /hpf (0-5) 11/28/18 11:53 Ur Squamous Epith Cells 1 /hpf (0-4) 11/28/18 11:53 Amorphous Sediment Occasional /hpf (None) H 11/28/18 11:53 Urine Mucus Many /hpf (None) H 11/28/18 11:53 Urine Opiates Screen Not Detected (NotDetected) 11/28/18 11:53 Ur Oxycodone Screen Not Detected (NotDetected) 11/28/18 11:53 Urine Methadone Screen Not Detected (NotDetected) 11/28/18 11:53 Ur Propoxyphene Screen Not Detected (NotDetected) 11/28/18 11:53 Ur Barbiturates Screen Not Detected (NotDetected) 11/28/18 11:53 U Tricyclic Antidepress Not Detected (NotDetected) 11/28/18 11:53 Ur Phencyclidine Scrn Not Detected (NotDetected) 11/28/18 11:53 Ur Amphetamines Screen Not Detected (NotDetected) 11/28/18 11:53 U Methamphetamines Scrn Not Detected (NotDetected) 11/28/18 11:53 U Benzodiazepines Scrn Detected (NotDetected) H 11/28/18 11:53 Urine Cocaine Screen Detected (NotDetected) H 11/28/18 11:53 U Marijuana (THC) Screen Not Detected (NotDetected) 11/28/18 11:53 Assessment and Plan (1) Status post transmetatarsal amputation of right foot Narrative/Plan: 42-year-old male with multiple medical problems that includes his presentation with suicidal ideation and polysubstance abuse with cocaine being utilized. The patient is no significant improvement since his stay in the psychiatric unit. His medication changes have occurred and he does relate is feeling better and looks forward to going to live with his brother at least for the next short period of time. We have asked the nursing staff to contact his prior hospital to first obtain cultures to ensure that his antibiotic therapy is appropriate and determine if a more simple regiment is possible within the 6 bag sedated he is currently doing. There is a very complex regimen for a person that he has significant depressive disorder. Secondly were asking for the surgical notes to see what exactly the surgeon did and is a possible for the current sutures to be removed if the procedure does not require them to be in for any protracted period of time. If he will be available to us in this community for follow-up we will then be able to provide him outpatient intravenous antibiotic therapy. Would also be able to provide him wound care at the Center hopefully have him fit for specialty footgear given a transmetatarsal amputation. 12/12/2018 pathology and surgical report from outside hospital is reviewed and reveals evidence of intramedullary fibrosis but no osteomyeltitis. Thus will discontinue the IV antibiotic therapy. PICC removed with incident, dressing placed and instructed to no lifting for 24 hours Can discharge without IV antibiotic therapy Follow in the office next week for suture removal and evaluation of his status A dose of ibuprofen is requested Current Visit: Yes Status: Acute Code(s): Z89.431 - ACQUIRED ABSENCE OF RIGHT FOOT SNOMED Code(s): 30191224113499043 (2) Cocaine abuse Current Visit: Yes Status: Acute Priority: Medium Code(s): F14.10 - COCAINE ABUSE, UNCOMPLICATED SNOMED Code(s): 36631753 (3) Major depressive disorder Current Visit: Yes Status: Acute Priority: High Code(s): F32.9 - MAJOR DEPRESSIVE DISORDER, SINGLE EPISODE, UNSPECIFIED SNOMED Code(s): 835114323 (4) Nicotine dependence Current Visit: Yes Status: Acute Priority: Low Code(s): F17.200 - NICOTINE DEPENDENCE, UNSPECIFIED, UNCOMPLICATED SNOMED Code(s): 97347239
[2018-12-12] MEDS: DOXEPIN 10 MG CAP PO SCH (20:56)
[2018-12-12] MEDS: hydrOXYzine PAMOATE 25 MG CAP PO SCH (20:56)
[2018-12-13 07:13] VITALS: BP 102/56; PULSE 93; TEMP 97.8
[2018-12-13] MEDS: busPIRone HCl 10 MG TAB PO SCH (08:17)
[2018-12-13] MEDS: DULoxetine HCL 30 MG CAPSULE.DR PO SCH (08:17)
[2018-12-13] MEDS: NICOTINE 21MG/24HR PATCH TRANSDERM SCH (08:17)
[2018-12-13] MEDS: LORazepam 0.5 MG TAB PO PRN (08:19)
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
== END 2018-12-13 13:38 | disposition home health service (06) | DRG 881 ==
LOC: EC 10:56 → 3MHU 22:17
PROVIDERS: ADMIT Psychiatry & Neurology Psychiatry; ATTEND Psychiatry & Neurology Psychiatry
DX: F32.9 Major depressive disorder, single episode, unspecified (principal); M86.9 Osteomyelitis, unspecified; R45.851 Suicidal ideations; F14.10 Cocaine abuse, uncomplicated; F17.210 Nicotine dependence, cigarettes, uncomplicated; F41.9 Anxiety disorder, unspecified; G47.00 Insomnia, unspecified; Z09 Encounter for follow-up examination after completed treatment for conditions other than malignant neoplasm; Z89.431 Acquired absence of right foot; Z59.0 Homelessness; Z56.0 Unemployment, unspecified; L90.5 Scar conditions and fibrosis of skin; Z79.899 Other long term (current) drug therapy; Z82.5 Family history of asthma and other chronic lower respiratory diseases; Z91.14 Patient's other noncompliance with medication regimen; F19.10 Other psychoactive substance abuse, uncomplicated; Z71.51 Drug abuse counseling and surveillance of drug abuser; G89.29 Other chronic pain
CPT/HCPCS: 36415; 80053; 80061; 80306; 81001; 82075; 83036; 84443; 85025; 85027; 96365; 96366; 96367; 99285

== ENCOUNTER 2019-04-04 17:58 | Inpatient (IN) | payer MEDICAID, OTHER ==
[2019-04-04] MEDS ORDERED: IBUPROFEN 400 MG TAB PO STA (19:16)
--- NOTE | 2019-04-04 20:55 | XR ---
PROCEDURE: XR foot complete RT - 3V DATE AND TIME: 04/04/2019 8:04 PM CLINICAL INDICATION: PHH; pain TECHNIQUE: Department protocol COMPARISON: 08/03/2018 FINDINGS: The bones and joints and soft tissues are similar to the prior study. IMPRESSION: No definite acute radiographic process.
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
[2019-04-04] MEDS ORDERED: HYDROcodone/APAP 5-325MG 1 EACH TAB PO STA (21:16)
[2019-04-04 21:41] LABS: Amphetamine Screen,Urine Not Detected (NotDetected); Barbiturate Screen,Urine Not Detected (NotDetected); Benzodiazepines Screen,Urine Not Detected (NotDetected); Cocaine Screen,Urine Not Detected (NotDetected); Methadone Screen, Urine Not Detected (NotDetected); Opiate Screen,Urine Not Detected (NotDetected); Oxycodone Screen, Urine Not Detected (NotDetected); Phencyclidine Screen,Urine Not Detected (NotDetected); Tricyclic Antidepressant,Urine Detected (NotDetected); Urn Cannabinoid Scrn Not Detected (NotDetected)
[2019-04-05] MEDS ORDERED: MAG HYDROX/AL HYDROX/SIMETH 30 ML CUP PO PRN (01:34)
[2019-04-05] MEDS ORDERED: MAGNESIUM HYDROXIDE 2,400 MG/10 ML CUP PO PRN (01:34)
[2019-04-05] MEDS ORDERED: ZIPRASIDONE 20 MG VIAL IM PRN (01:34)
[2019-04-05] MEDS: NICOTINE 14MG/24HR PATCH TRANSDERM SCH ×2 (02:24→09:24)
[2019-04-05] MEDS: LORazepam 1 MG TAB PO PRN ×3 (02:24→18:40)
[2019-04-05] MEDS ORDERED: oxyCODONE ER 10 MG TAB.ER.12H PO STA (08:54)
[2019-04-05] MEDS ORDERED: hydrOXYzine PAMOATE 25 MG CAP PO PRN (14:30)
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
--- NOTE | 2019-04-05 14:37 | P.CONS ---
History of Present Illness - Reason for Consult Consult date: 04/05/19 - History of Present Illness The patient is a 43-year-old male with a PMH of frostbite with subsequent right metatarsal amputation, and prolonged course of IV antibiotics with PICC line, completed in December 2018 presented to the ED with complaints of chronic right foot pain along with depression. Patient notes that he has been dealing with his chronic right foot pain after his amputation since his surgery. He reports 8/10 pain, intermittent, with no clear alleviating or exacerbating features. He notes that with his OxyContin, the pain is improved to 5 out of 10. The patient however reports that he did not follow-up with any physicians after his previous discharge from the psychiatric unit due to personal issues. At the present time, he denied any homicidal or suicidal ideation, though notes that his pain has been wearing him down. Denied any additional complaints. Denied chest pain, shortness of breath, nausea, vomiting, fever, chills, abdominal pain, or dizziness. Review of Systems Pertinent positives and negatives as discussed in HPI, a complete review of systems was performed and all other systems are negative. Past Medical History Past Medical History: No Reported History Additional Past Medical History / Comment(s): R foot all 5 toe amputations d/t frostbite, post surgery R foot infection/septic/osteomylitis, chronic R foot pain. History of Any Multi-Drug Resistant Organisms: None Reported Past Surgical History: No Surgical Hx Reported Additional Past Surgical History / Comment(s): RIGHT FOOT- ALL 5 TOES AMPUTATION, recent surgery for septic R foot, picc lines. Past Anesthesia/Blood Transfusion Reactions: No Reported Reaction Past Psychological History: Anxiety, Depression Additional Psychological History / Comment(s): Has a history of polysubstance abuse. Cocaine actively being used at admission. Dishonorable discharge from the [employer], not eligible for VA benefits. No travel since days, he relates he was in [place]. Active tobacco smoker this is related to heavy alcohol use. He is single. Homeless. Will be going to live with his brother. No animal exposures Smoking Status: Current every day smoker Past Alcohol Use History: None Reported Additional Past Alcohol Use History / Comment(s): Pt started smoking in 1993 and is a ppd smoker. Past Drug Use History: None Reported - Past Family History Mother Additional Family Medical History / Comment(s): Mother of pulmonary fibrosis at the age of 69yrs. She was a lung transplant recipient. Father Family Medical History: COPD Additional Family Medical History / Comment(s): Father is an ex smoker. Medications and Allergies Home Medications Medication Instructions Recorded Confirmed Type Acetaminophen Tab [Tylenol] 650 mg PO Q4HR PRN tab 12/11/18 Rx DULoxetine HCL [Cymbalta] 90 mg PO DAILY 28 Days capsule.dr 12/11/18 Rx Doxepin [SINEquan] 10 mg PO HS 28 Days cap 12/11/18 Rx Nicotine 21Mg/24Hr Patch [Habitrol] 1 patch TRANSDERM DAILY 14 Days 12/11/18 Rx patch hydrOXYzine PAMOATE [Vistaril] 50 mg PO HS 28 Days capsule 12/11/18 Rx oxyCODONE HCL [oxyCODONE HCL (IR)] 20 mg PO Q6H PRN 3 Days #12 tab 12/11/18 Rx Ondansetron Odt [Zofran Odt] 8 mg PO Q8HR PRN 5 Days tab 12/13/18 Rx Allergies Allergy/AdvReac Type Severity Reaction Status Date / Time No Known Allergies Allergy Verified 12/12/18 15:38 Physical Exam Vitals: Vital Signs Temp Pulse Pulse Resp BP BP Pulse Ox 04/05/19 03:17 97.1 F L 89 18 114/82 04/05/19 01:54 98.3 F 88 18 114/71 98 04/05/19 00:15 70 18 109/75 97 04/04/19 18:02 97.7 F 110 H 18 138/84 100 Intake and Output 04/04/19 04/05/19 04/05/19 22:59 06:59 14:59 Other: Weight 74.843 kg 68.991 kg General: non toxic, no distress, appears at stated age, normal weight Derm: no unusual rashes/lesions no unusual ecchymoses, warm, dry Head: atraumatic, normocephalic, symmetric Eyes: EOMI, no lid lag, anicteric sclera, pupils equal round reactive to light ENT: Nose and ears atraumatic, no thrush, no pharyngeal erythema Neck: No thyromegaly, no cervical lymphadenopathy, trachea midline, supple Mouth: no lip lesion, mucus membranes moist Cardiovascular: S1S2 reg, no murmur, positive posterior tibial pulse bilateral, no edema, capillary refill less than 2 seconds Lungs: CTA bilateral, no rhonchi, no rales , no accessory muscle use Abdominal: soft, nontender to palpation, no guarding, no appreciable organomegaly, normal bowel sounds Ext: Right metatarsal amputation, with well-healing scar, no gross muscle atrophy, muscle strength 5 out of 5 in all 4 extremities grossly, no contractures, Neuro: CN II-XI grossly intact, light touch intact all 4 extremities, finger to nose within normal limits, Psych: Alert, oriented, appropriate affect Results Labs: Abnormal Lab Results - Last 24 Hours (Table) 04/04/19 Range/Units Unknown U Tricyclic Antidepress Detected H (NotDetected) Assessment and Plan Plan: Chronic right foot pain secondary to history of osteomyelitis and transmetatarsal amputation -Discussed in detail regarding the need for chronic pain management follow-up -Patient may benefit from a short course of [place] and a limited supply upon discharge with subsequent pain management follow-up -Defer to the psychiatrist for now Depression and suicidal ideation -As per psychiatry Thank you for allowing us to participate in the care of this patient. We will follow peripherally. Do not hesitate to contact us with questions. Someone can be reached from the [facility] hospitalist group at all hours of the day at [phone].
[2019-04-05] MEDS: DOXEPIN 25 MG CAP PO SCH (20:53)
[2019-04-06] MEDS: LORazepam 1 MG TAB PO PRN ×3 (02:20→20:47)
[2019-04-06 08:08] LABS: ALT 52 U/L (4-49); AST 47 U/L (17-59); African American GFR (CKD) >90 (>60 ml/min/1.73 sqM); Albumin 4.1 g/dL (3.5-5.0); Alkaline Phosphatase 99 U/L (38-126); Anion Gap 8 mmol/L; Bilirubin, Delta 0.3 mg/dL (0.0-0.2); Bilirubin,Unconjugated 0.1 mg/dL (0.0-1.1); Blood Urea Nitrogen 15 mg/dL (9-20); Calcium 9.2 mg/dL (8.4-10.2); Carbon Dioxide 28 mmol/L (22-30); Chloride 106 mmol/L (98-107); Cholesterol 152 mg/dL (<200); Glucose 104 mg/dL (74-99); HDL Cholesterol 45 mg/dL (40-60); LDL Cholesterol,Calculated 92 mg/dL (0-99); Non-African American GFR(CKD) >90 (>60 ml/min/1.73 sqM); Potassium 4.2 mmol/L (3.5-5.1); Sodium 142 mmol/L (137-145); Total Bilirubin 0.4 mg/dL (0.2-1.3); Total Protein 7.6 g/dL (6.3-8.2); Triglycerides 77 mg/dL (<150)
[2019-04-06 08:18] LABS: Anisocytosis Slight; Basophils % (A) 1 %; Eosinophils # (A) 0.2 k/uL (0-0.7); Eosinophils % (A) 5 %; HCT 40.4 % (39.0-53.0); HGB 13.2 gm/dL (13.0-17.5); Lymphocytes # (A) 1.4 k/uL (1.0-4.8); Lymphocytes % (A) 33 %; MCHC 32.6 g/dL (31.0-37.0); MCV 85.8 fL (80.0-100.0); Mean Platelet Volume 7.4; Monocytes # (A) 0.3 k/uL (0-1.0); Monocytes % (A) 7 %; Neutrophils # (A) 2.3 k/uL (1.3-7.7); Neutrophils % (A) 52 %; Platelet Count 162 k/uL (150-450); RBC 4.71 m/uL (4.30-5.90); RDW 16.5 % (11.5-15.5); WBC 4.4 k/uL (3.8-10.6)
[2019-04-06] MEDS: NICOTINE 14MG/24HR PATCH TRANSDERM SCH (08:36)
[2019-04-06] MEDS: IBUPROFEN 800 MG TAB PO PRN (08:36)
--- NOTE | 2019-04-06 12:04 | P.PN ---
Progress Note - Text Progress Note Date: 04/06/19 Interval history: Patient was seen up at the nurse's desk and was directable and agreeable speech read in the office. Patient was initially appropriate and cooperative with typewriter ribbon winder however claims that he has ongoing depression and was fixated/preoccupied with his pain in his foot. He was requesting to be on Percocets or [place]'s. He claims that "I will be able to walk" if he is not on the medications however patient was noticed to be walking around the unit earlier. He states that he had "on and off sleep" last night and denied any significant problems. He states his appetite is fair. At this time patient denies any suicidal or homicidal ideations intent or plan. Denies any Auditory o r visual hallucinations. Patient denies any side effects from the medications and has been compliant with meds. Mental status exam: General Appearance: Patient appears to be stated age is alert, superficially cooperative. Wearing street clothing, fair eye contact. Behavior: No agitated behavior. Patient is calm and directable. Manipulative and superficially cooperative. Speech: Patient's speech is fluent and nonpressured. Mood/Affect: Mood is depressed, affect is congruent and constricted. Suicidality/Homicidality: Patient denies having any suicidal or homicidal ideation intent or plan. Perceptions: Patient denies any auditory or visual hallucinations. Though content/process: There is no evidence of any delusional thought content and thought process is linear and goal-directed. Focused on pain and opiate medications. Memory and concentration: AOX3, grossly intact for the purposes of this session Judgment and insight: Poor Assessment/Plan: Continue with current diagnosis. Patient continues to meet criteria for inpatient psychiatric admission for symptom stabilization and safety.Patient will be maintained on current psychotropic medication regimen. Monitor for medication compliance and for any psychotropic medication side effects. Will continue to monitor ongoing response to treatment. At this time we will hold off on giving any opiate pain medications. Patient has Tylenol and ibuprofen when necessary for pain.
[2019-04-06] MEDS: ACETAMINOPHEN TAB 325 MG TAB PO PRN ×2 (12:57→18:16)
[2019-04-06 13:21] LABS: Hemoglobin A1C 5.6 % (4.0-6.0)
[2019-04-06] MEDS: DOXEPIN 25 MG CAP PO SCH (20:47)
[2019-04-07] MEDS: IBUPROFEN 800 MG TAB PO PRN ×2 (06:06→13:28)
[2019-04-07] MEDS: LORazepam 1 MG TAB PO PRN ×3 (06:06→20:50)
[2019-04-07] MEDS: NICOTINE 14MG/24HR PATCH TRANSDERM SCH ×2 (08:59→11:37)
[2019-04-07] MEDS: ACETAMINOPHEN TAB 325 MG TAB PO PRN ×2 (11:39→16:55)
--- NOTE | 2019-04-07 11:55 | P.PN ---
Progress Note - Text Progress Note Date: 04/07/19 Interval history: Patient was seen walking the hallways and was directable and agreeable speak to signwriter in the office. Patient was initially appropriate and cooperative with signwriter however continues to be focused on pain medications and states that it "Tylenol is not doing it for me". Patient continues to ask for [place] was or any other opiates. He states that he has ongoing depression at this time and states that "having grieved over my mother's or losing my toes". He states that he would like gabapentin at this time. He states that he had "on and off sleep" last night and denied any significant problems. He states his appetite is fair. At this time patient denies any suicidal or homicidal ideations intent or plan. Denies any Auditory or visual hallucinations. Patient denies any side effects from the medications and has been compliant with meds. Mental status exam: General Appearance: Patient appears to be stated age is alert, superficially cooperative. Wearing street clothing, fair eye contact. Behavior: No agitated behavior. Patient is calm and directable. Manipulative and superficially cooperative. Speech: Patient's speech is fluent and nonpressured. Mood/Affect: Mood is depressed, affect is congruent and constricted. Suicidality/Homicidality: Patient denies having any suicidal or homicidal ideation intent or plan. Perceptions: Patient denies any auditory or visual hallucinations. Though content/process: There is no evidence of any delusional thought content and thought process is linear and goal-directed. Focused on pain and opiate medications. Memory and concentration: AOX3, grossly intact for the purposes of this session Judgment and insight: Poor Assessment/Plan: Continue with current diagnosis. Patient continues to meet criteria for inpatient psychiatric admission for symptom stabilization and safety.Patient will be maintained on current psychotropic medication regimen except for starting Cymbalta 30 mg daily for mood/pain and also increase doxepin to 40 mg nightly for insomnia/mood. Monitor for medication compliance and for any psychotropic medication side effects. Will continue to monitor ongoing response to treatment. At this time we will hold off on giving any opiate pain medications and will defer the decision to Dr. Seals. Patient has Tylenol and ibuprofen when necessary for pain.
[2019-04-07] MEDS: DULoxetine HCL 30 MG CAPSULE.DR PO SCH (12:13)
[2019-04-07] MEDS: DOXEPIN 25 MG CAP PO SCH (20:47)
[2019-04-07] MEDS: DOXEPIN 10 MG CAP PO SCH (20:48)
[2019-04-08] MEDS: LORazepam 1 MG TAB PO PRN ×3 (05:37→20:53)
[2019-04-08] MEDS: IBUPROFEN 800 MG TAB PO PRN (05:37)
[2019-04-08] MEDS: DULoxetine HCL 30 MG CAPSULE.DR PO SCH (08:55)
[2019-04-08] MEDS: NICOTINE 14MG/24HR PATCH TRANSDERM SCH (08:55)
[2019-04-08] MEDS: HYDROcodone/APAP 5-325MG 1 EACH TAB PO PRN ×3 (12:07→22:46)
--- NOTE | 2019-04-08 13:19 | P.PN ---
Subjective Progress Note Date: 04/08/19 Principal diagnosis: Major depressive disorder recurrent severe without psychotic features, Cocaine use disorder unspecified, history of osteomyelitis and chronic pain Reviewed the medical record, interviewed the patient and discuss his treatment and treatment plan during team meeting. He was pain focused. He complained of pain that was unrelieved with Motrin or Tylenol. He repeatedly requested something "stronger". He was miffed that I would only prescribed [place] 5/325. He argued that his depression as a result of the chronic, severe and unrelenting for pain. I explained that I am not a pain specialist and he would need to meet with a pain specialist to manage the pain. He acknowledges that he has not followed through with outpatient treatment and is never met with a pain specialist despite having presented to several [facility] with complaints of pain. Objective - Vital Signs Vital signs: Vital Signs Temp 98.2 F 04/08/19 07:04 Pulse 81 04/08/19 07:04 Resp 16 04/08/19 07:04 BP 116/76 04/08/19 07:04 Pulse Ox 98 04/05/19 01:54 Intake & Output 04/07/19 04/08/19 04/08/19 18:59 06:59 18:59 Weight 75.5 kg - Exam He presented as a thin middle-aged man with short topete hair. He made eye contact and attended to the interview. He walks slowly with a limp. He had a distressed facial expression. He showed psychomotor retardation but no abnormal movements. Speech was spontaneous and consistent with his mood appears affect was dysphoric with a strong component of anger. He denied suicidal ideation, wishes or homicidal ideation. He expressed feelings of hopelessness, helplessness related to the chronic and unremitting pain. He did not express ideas reference, paranoid ideation or delusions. His thinking was abstract and associations were coherent and logical. He perseverated about pain, the relationship Between his pain this mood and effect pain on his ability to function. - Labs CBC & Chem 7: 04/06/19 07:39 04/06/19 07:39 Assessment and Plan Assessment: [place] 5/325 every 6 hours when necessary for pain. Continue other medications as prescribed. Refer to a pain specialist after discharge. Encourage participation in therapeutic groups and activities. Evaluate clinical status response to treatment daily basis.
[2019-04-08] MEDS: DOXEPIN 10 MG CAP PO SCH (20:51)
[2019-04-09] MEDS: LORazepam 1 MG TAB PO PRN ×3 (05:20→20:55)
[2019-04-09] MEDS: HYDROcodone/APAP 5-325MG 1 EACH TAB PO PRN ×4 (05:20→23:41)
[2019-04-09] MEDS: NICOTINE 14MG/24HR PATCH TRANSDERM SCH (08:25)
[2019-04-09] MEDS: DULoxetine HCL 30 MG CAPSULE.DR PO SCH (08:25)
--- NOTE | 2019-04-09 13:58 | P.PN ---
Subjective Progress Note Date: 04/09/19 Principal diagnosis: Major depressive disorder recurrent severe without psychotic features, Cocaine use disorder unspecified, history of osteomyelitis and chronic pain I reviewed the medical record, interviewed the patient and discuss his treatment and treatment plan during team meeting. He was much less pain focused and medication seeking today. Also, he complained only of minimal relief of pain with the current dose of [place]. He talked about his feelings of depression, h opelessness and helplessness. He cited his persistent transportation, depression, fatigue and pain as a reason for not following through with medical appointments. I reviewed the discharge from his last admission. We recommended follow-up with his primary care but he did not keep the appointment. I explained the need to either meet with a pain specialist or collaborate with his primary care provider for the management of his chronic pain. We also discussed the benefits of outpatient mental health treatment including individual therapy to cope with his chronic feelings of depression Objective - Vital Signs Vital signs: Vital Signs Temp 98.1 F 04/09/19 03:44 Pulse 98 04/09/19 03:44 Resp 16 04/09/19 03:44 BP 125/74 04/09/19 03:44 Pulse Ox 98 04/05/19 01:54 - Exam He presented as a thin pale appearing 43-year-old male who was pleasant on approach. He made eye contact and attempted to interview. He is surgical area of his right foot was clean and well-healed.. He had a depressed facial expression. He was alert and oriented to person, place and time. He showed psychomotor retardation but no abnormal motor and speech speech was spontaneous with decreased rate, rhythm and volume. His affect was depressed and unreactive. He expressed feelings of hopelessness. Denied suicidal ideation or wishes. He did not express ideas reference, paranoid ideation or delusions. His thinking was abstract and associations were coherent and logical. He perseverated about his physical disability and chronic pain. He denied hallucinations and did not appear to be responding to internal stimuli. - Labs CBC & Chem 7: 04/06/19 07:39 04/06/19 07:39 Assessment and Plan Assessment: He is less medication focused on prior encounters but describes continued feelings depression including hopelessness, helplessness and worthlessness. Plan: Continue duloxetine 30 mg daily and titrated according to clinical response and tolerance. Increase at bedtime dose of Sinequan to 75 mg. motion picture set up worker to coordinate discharge and aftercare including referral to a pain specialist and referral for community mental health services. Continue the current dose of alcohol and Ativan.
[2019-04-09] MEDS: DOXEPIN 25 MG CAP PO SCH (20:53)
[2019-04-10] MEDS: HYDROcodone/APAP 5-325MG 1 EACH TAB PO PRN ×3 (06:11→18:21)
[2019-04-10] MEDS: NICOTINE 14MG/24HR PATCH TRANSDERM SCH (08:18)
[2019-04-10] MEDS: LORazepam 1 MG TAB PO PRN ×3 (08:18→22:12)
[2019-04-10] MEDS: DULoxetine HCL 30 MG CAPSULE.DR PO SCH ×2 (08:18→20:58)
--- NOTE | 2019-04-10 14:42 | P.PN ---
Subjective Progress Note Date: 04/10/19 Principal diagnosis: Major depressive disorder recurrent severe without psychotic features, Cocaine use disorder unspecified, history of osteomyelitis and chronic pain I reviewed the medical record, interviewed the patient and discuss his treatment and treatment plan during team meeting. He denied that he has extreme pain and feels that is much controlled than when he was first admitted. He denied having thoughts of or suicide. He feels much less depressed than on admission. He is hopeful that he would gain control of her pain in his mood with appointments for apain specialist and community mental health. He had difficulty falling asleep yesterday and slept approximately 4 hours. Objective - Vital Signs Vital signs: Vital Signs Temp 98.2 F 04/10/19 02:45 Pulse 103 H 04/10/19 02:45 Resp 14 04/10/19 02:45 BP 109/71 04/10/19 02:45 Pulse Ox 98 04/05/19 01:54 - Exam He presented as a thin pale appearing 43-year-old male who was pleasant on approach. He made eye contact and attempted to interview. He had a blunted facial expression. He was alert and oriented to person, place and time. He showed psychomotor retardation but no abnormal motor. His speech was spontaneous with normal rate, rhythm and volume. His affect was depressed. He denied feeling hopeless, helpless or worthless. In general, he feels more hopeful that admission. He denied suicidal ideation or wishes. He did not express ideas reference, paranoid ideation or delusions. His thinking was abstract and associations were coherent and logical. He did not perseverate about his physical disability or chronic pain. He denied hallucinations and did not appear to be responding to internal stimuli. - Labs CBC & Chem 7: 04/06/19 07:39 04/06/19 07:39 Assessment and Plan Assessment: Both his pain and his overall mood has improved from admission. Plan: Increase duloxetine to 30 mg twice a day. Continue at bedtime dose of Sinequan to 75 mg and last she continues to have difficulty with sleep onset. jet worker to coordinate discharge and aftercare including referral to a pain specialist and referral for community mental health services. Continue the current dose of alcohol and Ativan.
[2019-04-10] MEDS: DOXEPIN 25 MG CAP PO SCH (20:58)
[2019-04-11] MEDS: HYDROcodone/APAP 5-325MG 1 EACH TAB PO PRN ×5 (00:19→22:16)
[2019-04-11] MEDS: LORazepam 1 MG TAB PO PRN ×3 (05:38→21:02)
[2019-04-11] MEDS: NICOTINE 14MG/24HR PATCH TRANSDERM SCH (08:29)
[2019-04-11] MEDS: DULoxetine HCL 30 MG CAPSULE.DR PO SCH ×2 (08:29→21:02)
--- NOTE | 2019-04-11 14:04 | P.PN ---
Subjective Progress Note Date: 04/11/19 Principal diagnosis: Major depressive disorder recurrent severe without psychotic features, Cocaine use disorder unspecified, history of osteomyelitis and chronic pain I reviewed the medical record, interviewed the patient and discuss his treatment and treatment plan during team meeting. His foot pain is much controlled on admission. He described his mood as "okay". He denied feeling persistently depressed or anxious. He denied having suicidal ideation or wishes. He attempted to schedule an appointment with [facility] but needed a referral from his primary care provider. He was unable to schedule an appointment with his listed PCP because the office closed and Monday. Objective - Vital Signs Vital signs: Vital Signs Temp 97.8 F 04/11/19 05:39 Pulse 74 04/11/19 05:39 Resp 18 04/11/19 05:39 BP 118/79 04/11/19 05:39 Pulse Ox 100 04/11/19 05:39 - Exam His health casually groomed and dressed. He made eye contact and attended to the interview. His speech was spontaneous with slight decrease in rate and rhythm. He denied feeling hopeless, helpless or worthless. He denied suicidal ideation or wishes. His affect is blunted but stable and appropriate. His thinking was organized and coherent. - Labs CBC & Chem 7: 04/06/19 07:39 04/06/19 07:39 Assessment and Plan Assessment: His pain and mood have both improved from admission. Plan: Plan for discharge on 04/12/2019. Continue current medications. I would like him to have an appointment scheduled with either his primary care provider or a pain specialist prior to discharge. Follow-up with [facility] mental [facility].
[2019-04-11] MEDS: DOXEPIN 25 MG CAP PO SCH (21:02)
[2019-04-12 02:41] VITALS: RESP 16; TEMP 97.7
[2019-04-12] MEDS: HYDROcodone/APAP 5-325MG 1 EACH TAB PO PRN ×3 (03:21→15:39)
[2019-04-12] MEDS: LORazepam 1 MG TAB PO PRN ×2 (06:01→14:02)
[2019-04-12] MEDS: NICOTINE 14MG/24HR PATCH TRANSDERM SCH (08:47)
[2019-04-12] MEDS: DULoxetine HCL 30 MG CAPSULE.DR PO SCH (08:47)
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
[2019-04-12 14:02] VITALS: BP 129/80; PULSE 115
== END 2019-04-12 15:44 | disposition home or self-care (01) | DRG 885 ==
LOC: EC 17:58 → 3MHU 04-05 01:26 → UNDOADMIN 04-05 01:26 → 3MHU 04-06 02:51 → UNDODISIN 04-12 15:44
PROVIDERS: ADMIT Psychiatry & Neurology Psychiatry; ATTEND Psychiatry & Neurology Psychiatry
DX: F33.2 Major depressive disorder, recurrent severe without psychotic features (principal); R45.851 Suicidal ideations; F14.90 Cocaine use, unspecified, uncomplicated; F41.9 Anxiety disorder, unspecified; G89.28 Other chronic postprocedural pain; G47.00 Insomnia, unspecified; M20.61 Acquired deformities of toe(s), unspecified, right foot; M79.671 Pain in right foot; F17.210 Nicotine dependence, cigarettes, uncomplicated; Z71.6 Tobacco abuse counseling; Z79.899 Other long term (current) drug therapy; Z87.39 Personal history of other diseases of the musculoskeletal system and connective tissue; Z59.0 Homelessness; Z82.5 Family history of asthma and other chronic lower respiratory diseases; Z81.2 Family history of tobacco abuse and dependence; Z83.6 Family history of other diseases of the respiratory system
CPT/HCPCS: 80053; 80061; 80306; 82075; 82248; 83036; 84443; 85025; 99285

== ENCOUNTER 2019-04-17 14:00 | Emergency (ER) | payer OTHER ==
[2019-04-17 14:04] VITALS: BP 155/90; PULSE 105; RESP 20; TEMP 97.7
[2019-04-17] MEDS ORDERED: ACET/COD 300 MG/30 MG STARTER PACK 6 TAB BTL PO STA (14:16)
--- NOTE | 2019-04-17 14:21 | ED ---
General Adult HPI - General Chief complaint: Recheck/Abnormal Lab/Rx Stated complaint: med refill Time Seen by Provider: 04/17/19 14:06 Source: patient, RN notes reviewed, old records reviewed Mode of arrival: ambulatory Limitations: no limitations - History of Present Illness Initial comments: 42-year-old male patient past history significant for toe amputation on right foot. CV for chief complaint of chronic pain and right foot. Patient reports that has had chronic pain since these toes were indicated he had a biopsy performed for she has had significant pain since. Patient was that he is due to see his primary care provider today however there were closed due to weather. Request short-term analgesia until he is able to follow up with primary care provider and be referred to pain management. Denies any acute complaints. Systemic: Pt denies fatigue, fever/chills, rash. Pt denies weakness, night sweats, weight loss. Neuro: Pt denies headache, visual disturbances, syncope or pre-syncope. HEENT: Pt denies ocular discharge or irritation, otalgia, rhinorrhea, pharyngitis or notable lymphadenopathy. Cardiopulmonary: Pt denies chest pain, SOB, heart palpitations, dyspnea on exertion. Abdominal/GI: Pt denies abdominal pain, n/v/d. : Pt denies dysuria, burning w/ urination, frequency/urgency. Denies new onset urinary or bowel incontinence. MSK: Pt denies loss of strength or function in extremities. Neuro: Pt denies new onset weakness, paresthesias. - Related Data Previous Rx's Medication Instructions Recorded Acetaminophen Tab [Tylenol] 650 mg PO Q4HR PRN tab 12/11/18 Nicotine 21Mg/24Hr Patch [Habitrol] 1 patch TRANSDERM DAILY 14 Days 12/11/18 patch hydrOXYzine PAMOATE [Vistaril] 50 mg PO HS 28 Days capsule 12/11/18 Ondansetron Odt [Zofran ODT] 8 mg PO Q8HR PRN 5 Days tab 12/13/18 DULoxetine HCL [Cymbalta] 30 mg PO BID #60 capsule. 04/12/19 Doxepin [SINEquan] 75 mg PO HS #90 cap 04/12/19 Allergies Allergy/AdvReac Type Severity Reaction Status Date / Time No Known Allergies Allergy Verified 04/17/19 14:04 Review of Systems ROS Statement: Those systems with pertinent positive or pertinent negative responses have been documented in the HPI. ROS Other: All systems not noted in ROS Statement are negative. Past Medical History Past Medical History: No Reported History Additional Past Medical History / Comment(s): R foot all 5 toe amputations d/t frostbite, post surgery R foot infection/septic/osteomylitis, chronic R foot pain. History of Any Multi-Drug Resistant Organisms: None Reported Past Surgical History: Orthopedic Surgery Additional Past Surgical History / Comment(s): RIGHT FOOT- ALL 5 TOES AMPUTATION, recent surgery for septic R foot, picc lines. Past Anesthesia/Blood Transfusion Reactions: No Reported Reaction Past Psychological History: Anxiety, Depression Smoking Status: Current every day smoker Past Alcohol Use History: None Reported Past Drug Use History: None Reported - Past Family History Mother Additional Family Medical History / Comment(s): Mother of pulmonary fibrosis at the age of 69yrs. She was a lung transplant recipient. Father Family Medical History: COPD Additional Family Medical History / Comment(s): Father is an ex smoker. General Exam - General Exam Comments Initial Comments: Constitutional: NAD, AOX3, Pt has pleasant affect. HEENT: NC/AT, trachea midline, neck supple, no lymphadenopathy. Posterior pharynx non erythematous, without exudates. External ears appear normal, without discharge. Mucous membranes moist. Eyes PERRLA, EOM intact. There is no scleral icterus. No pallor noted. Cardiopulmonary: RRR, no murmurs, rubs or gallops, no JVD noted. Lungs CTAB in anterior and posterior perez. No peripheral edema. Abdominal exam: Abdomen soft and non-distended. Abdomen non-tender to palpation in all 4 quadrants. Bowel sounds active in LLQ. No hepatosplenomegaly. No ecchymosis Neuro: CN II-XII grossly intact. No nuchal rigidity. No raccon eyes, no barrett sign, no hemotympanum. No cervical spinal tenderness. MSK: Right toe amputation noted on right foot. No erythema, neurovascularly intact. No skin changes. No posterior calf tenderness bilaterally, homans sign negative bilaterally. Posterior tibialis and radial pulse +2 bilaterally. Sensation intact in upper and lower extremities. Full active ROM in upper and lower extremities, 5/5 stregnth. Limitations: no limitations Course Vital Signs 04/17/19 14:02 Temperature 97.7 F Pulse Rate 105 H Respiratory 20 Rate Blood Pressure 155/90 O2 Sat by Pulse 99 Oximetry Medical Decision Making - Medical Decision Making 43-year-old male patient presents ED for evaluation of chronic right foot pain. Patient reports he is due to see his primary care provider today however the o ffice was closed. Request short-term analgesia. Denies any acute complaints. Area of Complaint is neurovascularly intact, with no skin changes. Patient will describe it, a starter pack will be by to follow up with primary care provider in pain management for further management. Case discussed with Dr. Irene. Disposition Clinical Impression: Chronic toe pain, right foot Disposition: HOME SELF-CARE Condition: Stable Instructions (If sedation given, give patient instructions): Arthralgia (ED) Additional Instructions: Follow-up with primary care provider and pain management for further evaluation. Return to ER if condition worsens in any way. Is patient prescribed a controlled substance at d/c from ED?: No Referrals: Neil Bhardwaj MD [Primary Care Provider] - 1-2 days
== END 2019-04-17 14:45 | disposition home or self-care (01) ==
LOC: EC 14:00
DX: G89.29 Other chronic pain (principal); M25.571 Pain in right ankle and joints of right foot; M79.674 Pain in right toe(s); F17.200 Nicotine dependence, unspecified, uncomplicated; Z89.411 Acquired absence of right great toe; Z89.421 Acquired absence of other right toe(s)
CPT/HCPCS: 99283

== ENCOUNTER 2024-04-19 16:07 | Emergency (ER) | payer OTHER ==
[2024-04-19] MEDS: LORazepam 2 MG/ML INJ IM STA (16:53)
[2024-04-19 17:20] VITALS: BP 109/56; PULSE 106; RESP 19; TEMP 98
--- NOTE | 2024-04-19 17:25 | ED ---
General Adult HPI - General Chief complaint: Arrhythmia/Palpitations Stated complaint: Substance abuse Time Seen by Provider: 04/19/24 16:23 Source: patient, EMS, RN notes reviewed, old records reviewed Mode of arrival: EMS Limitations: no limitations - History of Present Illness Initial comments: 48-year-old male presenting for evaluation of palpitation and anxiety after using methamphetamine. Patient was acting bizarre and was brought in for evaluation. He specifically has no complaints admits to using fentanyl and methamphetamine. He denies chest pain or dyspnea. Denies fever. Denies injury. Denies depression or suicidal thoughts. - Related Data Previous Rx's Medication Instructions Recorded RX: Acetaminophen Tab [Tylenol] 650 mg PO Q4HR PRN tab 12/11/18 RX: Nicotine 21Mg/24Hr Patch 1 patch TRANSDERM DAILY 14 Days 12/11/18 [Habitrol] patch RX: hydrOXYzine pamoate [Vistaril] 50 mg PO HS 28 Days capsule 12/11/18 RX: Ondansetron Odt [Zofran ODT] 8 mg PO Q8HR PRN 5 Days tab 12/13/18 RX: DULoxetine HCL [Cymbalta] 30 mg PO BID #60 capsule. 04/12/19 RX: Doxepin [SINEquan] 75 mg PO HS #90 cap 04/12/19 Allergies Allergy/AdvReac Type Severity Reaction Status Date / Time No Known Allergies Allergy Verified 03/15/24 00:07 Review of Systems ROS Statement: Those systems with pertinent positive or pertinent negative responses have been documented in the HPI. ROS Other: All systems not noted in ROS Statement are negative. Past Medical History Past Medical History: No Reported History Additional Past Medical History / Comment(s): R foot all 5 toe amputations d/t frostbite, post surgery R foot infection/septic/osteomylitis, chronic R foot pain. History of Any Multi-Drug Resistant Organisms: None Reported Past Surgical History: Orthopedic Surgery Additional Past Surgical History / Comment(s): RIGHT FOOT- ALL 5 TOES AMPUTAT ION, recent surgery for septic R foot, picc lines. Past Anesthesia/Blood Transfusion Reactions: No Reported Reaction Past Psychological History: Anxiety, Depression Past Alcohol Use History: None Reported Past Drug Use History: None Reported - Past Family History Mother Additional Family Medical History / Comment(s): Mother of pulmonary fibrosis at the age of 69yrs. She was a lung transplant recipient. Father Family Medical History: COPD Additional Family Medical History / Comment(s): Father is an ex smoker. General Exam General appearance: alert, appears intoxicated, anxious Head exam: Present: atraumatic, normocephalic Eye exam: Present: normal appearance, PERRL Neck exam: Present: normal inspection. Absent: tenderness, meningismus Respiratory exam: Present: normal lung sounds bilaterally. Absent: respiratory distress Cardiovascular Exam: Present: normal rhythm, tachycardia Neurological exam: Present: alert, oriented X3, CN II-XII intact. Absent: motor sensory deficit Psychiatric exam: Present: agitated, anxious. Absent: suicidal ideation Skin exam: Present: warm, dry, intact. Absent: cyanosis, diaphoretic Course Vital Signs 04/19/24 04/19/24 04/19/24 16:08 16:11 17:18 Temperature 98.9 F 98.0 F Pulse Rate 136 H 106 H Pulse Rate [ 136 H Sitting Pulse Oximetery] Respiratory 20 19 Rate Blood Pressure 114/57 109/56 O2 Sat by Pulse 94 L 97 Oximetry Medical Decision Making - Medical Decision Making Was pt. sent in by a medical professional or institution (, PA, MIDDLE CARD TENDER, urgent care, hospital, or retirement...) When possible be specific @ -No Did you speak to anyone other than the patient for history (EMS, parent, family, police, friend...)? What history was obtained from this source @ -No Did you review nursing and triage notes (agree or disagree)? Why? @ -I reviewed and agree with nursing and triage notes Were old charts reviewed (outside hosp., previous admission, EMS record, old EKG, old radiological studies, urgent care reports/EKG's, retirement records)? Report findings @ -No old charts were reviewed Differential Mental Health Depression, anxiety, bipolar, psychosis, schizophrenia, borderline personality, situational depression, adjustment disorder, behavioral disorder, brain tumor, malingering, substance abuse, encephalopathy, medication reaction, dementia, hypothyroidism, degenerative neurologic disorder, lupus.... This is not meant to be all-inclusive list EKG interpreted by me (3pts min.). @ -Sinus tachycardia rate of 101, CA interval 156, QRS duration 86, QTc [address] segment elevation. X-rays interpreted by me (1pt min.). @ -None done CT interpreted by me (1pt min.). @ -None done U/S interpreted by me (1pt. min.). @ -None done What testing was considered but not performed or refused? (CT, X-rays, U/S, labs)? Why? @ -None What meds were considered but not given or refused? Why? @ -None Did you discuss the management of the patient with other professionals (professionals i.e. , PA, MIDDLE CARD TENDER, lab, RT, psych nurse, social media project manager, digital imaging specialist, teacher, sea air land officer, case management manager)? Give summary @ -No Was smoking cessation discussed for >3mins.? @ -No Was critical care preformed (if so, how long)? @ -No Were there social determinants of health that impacted care today? How? (Homelessness, low income, unemployed, alcoholism, drug addiction, transportation, low edu. Level, literacy, decrease access to med. care, [facility], rehab)? @ -No Was there de-escalation of care discussed even if they declined (Discuss DNR or withdrawal of care, Hospice)? DNR status @ -No What co-morbidities impacted this encounter? (DM, HTN, Smoking, COPD, CAD, Cancer, CVA, ARF, Chemo, Hep., AIDS, mental health diagnosis, sleep apnea, morbid obesity)? @ -None Was patient admitted / discharged? Hospital course, mention meds given and route, prescriptions, significant lab abnormalities, going to OR and other pertinent info. @ -[48-year-old male presenting after using methamphetamine. Patient is anxious and tachycardic but is alert and oriented x 3. He is not suicidal or homicidal. He is able to make his own decisions. He did agree to EKG and a dose of Ativan. EKG is sinus tach at 101. Vital signs are stable otherwise. Patient eager for discharge she is instructed to abstain from illicit drugs. Undiagnosed new problem with uncertain prognosis? @ -No Drug Therapy requiring intensive monitoring for toxicity (Heparin, Nitro, Ins ulin, Cardizem)? @ -No Were any procedures done? 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 @Acute Uncomplicated (without systemic symptoms) or Complicated (systemic symptoms)? @ -Default Side effects of treatment? @ -No Exacerbation, Progression, or Severe Exacerbation? @ -No Poses a threat to life or bodily function? How? (Chest pain, [place], [place], pneumonia, PE, COPD, DKA, ARF, appy, cholecystitis, CVA, Diverticulitis, Homicidal, Suicidal, threat to staff... and all critical care pts) @ -Yes, substance abuse Disposition Clinical Impression: Drug abuse Disposition: HOME SELF-CARE Condition: Fair Instructions (If sedation given, give patient instructions): Heart Palpitations (ED), Methamphetamine Abuse (ED) Is patient prescribed a controlled substance at d/c from ED?: No Referrals: None,Stated [Primary Care Provider] - 1-[address] [facility] [NON-STAFF] - 1-2 days Time of Disposition: 17:33
== END 2024-04-19 17:42 | disposition home or self-care (01) ==
LOC: EC 16:07
DX: F15.10 Other stimulant abuse, uncomplicated (principal)
CPT/HCPCS: 93005; 99285; J2060